=== PATIENT | male | born 1940 | race Caucasian/White ===

== ENCOUNTER → 2017-02-28 | Outpatient (CLI) | payer MEDICARE, BC ==
[~2017-02-28] MED LIST: ACET65TA; ALLO300T; ALTA10CA; DILT240C3; HYDR25TA6; K-TA10TA; MECL25TA2
--- NOTE | 2017-02-28 14:25 | REP ---
Right hand four views: There are no comparison studies. There is joint space narrowing compatible with mild osteoarthritis of the PIP articulations. There is joint space narrowing and cortical irregularity compatible with moderate osteoarthritis of the DIP articulations. The MCP articulations are unremarkable. The carpal ossicle articulations are unremarkable. Mineralization is normal. There are no unusual calcifications. There are no radiopaque foreign bodies. Impression: PIP and DIP osteoarthritis. Signed by César Bueno MD 02/28/2017 02:16 P
== END ==
LOC: M ADAMS 13:34
PROVIDERS: ATTEND Physician Assistant Medical
DX: M79.641 Pain in right hand (principal)

== ENCOUNTER 2017-07-10 08:54 | Emergency (ER) | payer MEDICARE, BC ==
[~2017-07-10] VITALS: Ht 177.8 cm; Wt 111.4 kg
[2017-07-10 08:54] VITALS: BP 169/77
[2017-07-10] MEDS ORDERED: VESI5TAB2 (09:10)
[2017-07-10] MEDS ORDERED: POTA10TAB (09:10)
[2017-07-10] MEDS ORDERED: DILT240C (09:10)
[2017-07-10] MEDS ORDERED: RAMI10CA (09:10)
[2017-07-10] MEDS ORDERED: HYDR25TA6 (09:10)
[2017-07-10] MEDS ORDERED: ALLO15TA (09:10)
--- NOTE | 2017-07-10 10:26 | REP ---
LEFT KNEE, FIVE VIEWS: HISTORY: Trauma. There is no acute fracture or dislocation. There is narrowing of the joint spaces. Calcifications are present posterior to the proximal tibia and fibula. This represents ligamentous or tendon calcification. IMPRESSION: There is no acute fracture or dislocation. Signed by Cresencio Dodd MD 07/10/2017 10:31 A
--- NOTE | 2017-07-10 10:27 | REP ---
LEFT TIBIA/FIBULAR, FOUR VIEWS: HISTORY: Leg pain. There is no acute fracture or dislocation. There is narrowing of the joint space. Calcifications are present posterior to the proximal tibia and fibula. This represents ligamentous or tendon calcification. IMPRESSION: There is no acute fracture or dislocation. Signed by Cresencio Dodd MD 07/10/2017 10:31 A
== END 2017-07-10 10:43 | disposition home or self-care (01) ==
LOC: M ED 08:54
DX: S83.92XA Sprain of unspecified site of left knee, initial encounter (principal); X50.1XXA Overexertion from prolonged static or awkward postures, initial encounter; Y92.39 Other specified sports and athletic area as the place of occurrence of the external cause; Y93.A1 Activity, exercise machines primarily for cardiorespiratory conditioning; Y99.9 Unspecified external cause status; I10 Essential (primary) hypertension; Z87.442 Personal history of urinary calculi; M10.9 Gout, unspecified; Z85.820 Personal history of malignant melanoma of skin; Z79.899 Other long term (current) drug therapy; Z88.5 Allergy status to narcotic agent

== ENCOUNTER → 2017-07-25 | Outpatient (REF) | payer MEDICARE, BC ==
[~2017-07-25] MED LIST changes: +ALLO15TA; +DILT240C; +POTA10TAB; +RAMI10CA; +VESI5TAB2
[2017-07-25 13:43] LABS: PHOSPHORUS LEVEL 2.9 MG/DL (2.5-4.9); URIC ACID 4.4 MG/DL (3.5-7.2)
== END ==
LOC: M LAB REF 12:30
PROVIDERS: ATTEND Internal Medicine
DX: M10.9 Gout, unspecified (principal); N20.0 Calculus of kidney; Q61.2 Polycystic kidney, adult type

== ENCOUNTER → 2017-09-28 | Outpatient (CLI) | payer MEDICARE, BC ==
[2017-09-30 14:10] LABS: PSA % FREE 31.9 % (.); PSA FREE 1.85 ng/mL; PSA TOTAL 5.8 ng/mL (0.0-4.0)
== END ==
LOC: M SMT 14:37
PROVIDERS: ATTEND Urology
DX: R97.20 Elevated prostate specific antigen [PSA] (principal)
CPT/HCPCS: 36415; 84154; G0463

== ENCOUNTER → 2018-02-27 | Outpatient (REF) | payer MEDICARE, BC ==
[2018-02-27 12:41] LABS: PTH INTACT 36.7 PG/ML (18.5-88.0)
== END ==
LOC: M LAB REF 11:43
DX: N25.81 Secondary hyperparathyroidism of renal origin (principal)
CPT/HCPCS: 83970

== ENCOUNTER → 2018-05-31 | Outpatient (REF) | payer MEDICARE, BC ==
[2018-06-02 00:06] LABS: PSA % FREE 24.7 % (.); PSA FREE 1.36 ng/mL; PSA TOTAL 5.5 ng/mL (0.0-4.0)
== END ==
LOC: M LABDRWAD 12:36
DX: R97.20 Elevated prostate specific antigen [PSA] (principal)
CPT/HCPCS: 84154

== ENCOUNTER → 2019-07-09 | Outpatient (REF) | payer MEDICARE, BC ==
[~2019-07-09] MED LIST changes: -ALLO15TA; +ALLO300T2; +ASPI81TAEC PO; +BACITAB PO; +CARD180C4 PO; +CIPR-249 PO; -DILT240C; +DILT240C47; +DILT240C47 PO; +FLOM0.4C39 PO; +HYDR25TAB PO; +MAGN400T5 PO; +POTA10808; +POTA10808 PO; -POTA10TAB; -RAMI10CA; +RAMI1CAP26; +RAMI1CAP26 PO; +VESI5TAB2 PO; +VITAMIN PACK PO; +ZYLO300T6 PO
[2019-07-09 14:17] LABS: FOLATE 23.2 NG/ML
== END ==
LOC: M LAB REF 12:50
PROVIDERS: ATTEND Nurse Practitioner Family
DX: D64.9 Anemia, unspecified (principal)

== ENCOUNTER → 2020-10-27 | Outpatient (REF) | payer MEDICARE, BC ==
[2020-10-27 18:32] LABS: APPEARANCE, URINE MANUAL CLOUDY (CLEAR); COLOR, URINE MANUAL RED (YELLOW)
[2020-10-27 18:33] LABS: BILIRUBIN, URINE MANUAL NEGATIVE (NEGATIVE); GLUCOSE, URINE (UA) MANUAL NEGATIVE (NEGATIVE); KETONE, URINE MANUAL NEGATIVE (NEGATIVE); NITRITE, URINE MANUAL NEGATIVE (NEGATIVE); PROTEIN, URINE MANUAL OBSCURED mg/dL (NEGATIVE); SPECIFIC GRAVITY,URINE MANUAL 1.015 (1.002-1.035); UROBILINOGEN, URINE MANUAL NORMAL (NORMAL)
[2020-10-27 18:34] LABS: BLOOD URINE MANUAL POSITIVE (NEGATIVE); LEUKOCYTE ESTERASE, URINE MAN POSITIVE (NEGATIVE)
[2020-10-27 18:38] LABS: BACTERIA, URINE SMALL AMOUNT; HYALINE CAST, URINE NONE SEEN /lpf (0-1); RBC, URINE TNTC /hpf (0-3); SQUAMOUS EPITHELIAL CELL URINE NONE SEEN /hpf (SMALL AMT); WBC, URINE TNTC /hpf (0-3)
== END ==
LOC: M SMT 17:09
PROVIDERS: ATTEND Urology
DX: N39.0 Urinary tract infection, site not specified (principal)

== ENCOUNTER → 2020-11-04 | Outpatient (REF) | payer MEDICARE, BC | LOC: M SMT 16:46 | PROVIDERS: ATTEND Urology | DX: R31.21 Asymptomatic microscopic hematuria (principal) ==

== ENCOUNTER 2020-11-10 15:59 | Emergency (ER) | payer MEDICARE, BC ==
[~2020-11-10] VITALS: Ht 177.8 cm; Wt 104.6 kg
[~2020-11-10 15:59] MED LIST changes: +HYDR-3490 PO; -HYDR25TAB PO
[2020-11-10] MEDS ORDERED: FLUC150T PO (16:15)
[2020-11-10] MEDS ORDERED: NITR100C2 PO (16:15)
[2020-11-10] MEDS ORDERED: ATOR1TAB21 PO (16:15)
[2020-11-10] MEDS ORDERED: NS 1,000 ML IV ONE (16:45)
--- NOTE | 2020-11-10 16:54 | REP ---
INDICATION: weakness. COMPARISON: Comparison chest x-ray April 12, 2018. TECHNIQUE: Two views.. FINDINGS: The lungs are well inflated and free of infiltrate. The pleural angles are sharp. The heart size is normal. Pulmonary vasculature is not increased. No significant bony abnormality is seen. The aorta is tortuous. There are degenerative changes in the thoracic spine. IMPRESSION: No active disease.. <Electronically signed by Jose Rivas > 11/10/20 1605
[2020-11-10 17:58] LABS: BASO % 0.3 % (0.0-1.0); EOS # 0.9 10^3/uL (0.0-0.5); HEMATOCRIT 39.6 % (42.0-52.0); HEMOGLOBIN 12.8 g/dl (13.5-17.5); LYMPH # 1.6 10^3/uL (1.5-5.0); LYMPH % 14.8 % (24.0-44.0); MEAN CORPUSCULAR HEMOGLOBIN 31.8 pg (27.0-33.0); MEAN CORPUSCULAR HGB CONC 32.3 g/dl (32.0-36.5); MEAN CORPUSCULAR VOLUME 98.5 fl (80.0-96.0); MONO # 0.9 10^3/uL (0.0-0.8); MONO % 8.4 % (0.0-5.0); NEUTROPHILS # 7.5 10^3/uL (1.5-8.5); NEUTROPHILS % 68.1 % (36.0-66.0); PLATELET COUNT, AUTOMATED 207 10^3/uL (150-450); RED BLOOD COUNT 4.02 10^6/uL (4.30-6.10); WHITE BLOOD COUNT 10.9 10^3/uL (4.0-10.0)
[2020-11-10 18:37] LABS: ALBUMIN 2.9 GM/DL (3.2-5.2); ALT/SGPT 35 U/L (12-78); BILIRUBIN,DIRECT 0.2 MG/DL (0.0-0.2); BILIRUBIN,TOTAL 0.6 MG/DL (0.2-1.0); BLOOD UREA NITROGEN 59 MG/DL (7-18); CALCIUM LEVEL 8.2 MG/DL (8.8-10.2); CARBON DIOXIDE LEVEL 24 MEQ/L (21-32); CHLORIDE LEVEL 104 MEQ/L (98-107); CK-MB VALUE MASS 3.3 NG/ML (<3.6); CPK CREATINE PHOSPHOKINASE 125 U/L (39-308); GLOMERULAR FILTRATION RATE 29.1 (>35); GLUCOSE, FASTING 100 MG/DL (70-100); LIPASE 187 U/L (73-393); MB/CK RELATIVE INDEX 2.64 (< OR =4); POTASSIUM SERUM 4.5 MEQ/L (3.5-5.1); SODIUM LEVEL 138 MEQ/L (136-145); TOTAL PROTEIN 6.3 GM/DL (6.4-8.2); TROPONIN I < 0.02 NG/ML (< 0.10)
--- NOTE | 2020-11-10 19:41 | REPVR ---
PROCEDURE INFORMATION: Exam: CT Abdomen And Pelvis Without Contrast Exam date and time: 11/10/2020 6:59 PM Age: 80 years old Clinical indication: Abdominal pain; Localized; Left; Additional info: Left sided abd pain, weakness, urinary incontinence TECHNIQUE: Imaging protocol: Computed tomography of the abdomen and pelvis without contrast. Radiation optimization: All CT scans at this facility use at least one of these dose optimization techniques: automated exposure control; mA and/or kV adjustment per patient size (includes targeted exams where dose is matched to clinical indication); or iterative reconstruction. COMPARISON: CT ABD/PEL W/IV CONTRAST ONLY 04/15/2018 9:33 AM FINDINGS: Mediastinal space: A small sliding hiatal hernia is present. Liver: Normal. No mass. Gallbladder and bile ducts: The gallbladder is incompletely distended. This is most likely related to incomplete fasting. Clinical correlation to exclude gallbladder pathology suggested. Pancreas: There is diffuse pancreatic atrophy. Spleen: Normal. No splenomegaly. Adrenal glands: Normal. No mass. Kidneys and ureters: Multiple bilateral renal cysts measuring up to 1.6 x 9 x 13.5 cm and 14 x 16 x 15 cm on the left both containing eggshell type calcification. Findings are stable. Stomach and bowel: Moderate diverticulosis is present in the distal colon. No diverticulitis. Appendix: No evidence of appendicitis. Intraperitoneal space: Unremarkable. No free air. No significant fluid collection. Vasculature: The aortoiliac vessels demonstrate moderate atherosclerotic calcification. Moderate atherosclerotic narrowing at the origin of the superior mesenteric artery. Lymph nodes: Unremarkable. No enlarged lymph nodes. Urinary bladder: There is thickening of the bladder wall with perivesicular inflammatory changes consistent with acute cystitis. Bilateral hydroureteronephrosis without obstructing etiology traced to the level of the bladder likely related to chronic bladder outlet obstruction. Reproductive: The prostate gland demonstrates moderate hyperplasia. Bones/joints: Dextroscoliosis. The spine demonstrates moderate degenerative changes. Severe central spinal stenosis L2-L3. Status post laminectomy at L3-L4. Severe central spinal stenosis L4-L5. Soft tissues: Unremarkable. IMPRESSION: 1. The gallbladder is incompletely distended. This is most likely related to incomplete fasting. Clinical correlation to exclude gallbladder pathology suggested. 2. A small sliding hiatal hernia is present. 3. There is diffuse pancreatic atrophy. 4. Multiple bilateral renal cysts measuring up to 1.6 x 9 x 13.5 cm and 14 x 16 x 15 cm on the left both containing eggshell type calcification. Findings are stable. 5. Moderate prostatic hyperplasia. 6. There is thickening of the bladder wall with perivesicular inflammatory changes consistent with acute cystitis. 7. Bilateral hydroureteronephrosis without obstructing etiology traced to the level of the bladder likely related to chronic bladder outlet obstruction. 8. Moderate diverticulosis is present in the distal colon. No diverticulitis. 9. Moderate atherosclerotic narrowing at the origin of the superior mesenteric artery. COMMENTS: Consistent with the [employer]'s Incidental Findings Committee white paper (J Am Zafar Radiol 2018): Any incidental renal lesion less than 1 cm or classified as too small to characterize, or any incidental cystic renal lesion characterized as simple-appearing, is likely benign. No follow-up imaging is recommended for these lesions per consensus recommendations based on imaging criteria. Electronically signed by: Rui Lazaro On 11/10/2020 19:41:53 PM
[2020-11-10] MEDS ORDERED: CIPROFLOXACIN 500MG TABLET PO ONE (20:45)
[2020-11-10] MEDS ORDERED: CIPR-249 PO (21:06)
[2020-11-10 21:16] VITALS: BP 134/67
--- NOTE | 2020-11-10 21:26 | SMCUROLCON ---
Urology Consultation General Date of Consultation 11/10/20 Reason For Consultation This patient is seen for Urinary Problem. History of Present Illness The patient is an 80-year-old male with a past medical history for urinary urgency and frequency. Teo's in the clinic earlier today with a complaint of nocturia times 1012 and daytime frequency every hour. He states that even though he feels a strong urge to void he can only voided a very small amount. Bladder scan showed only 22 mL residual volume. Because of his irritative voiding symptoms, there was concern for his prostate health. Unfortunately, he had left the clinic before digital rectal could be performed and he presented to the emergency room for a more complete and more rapid workup with CT scan for better pelvic evaluation. Past Medical History Medical History Hypertension Polycystic kidney disease Kidney stones Elevated PSA Hematuria BPH with obstruction Bilateral hydronephrosis Surgical Hstory Cystoscopy Appendectomy Tonsillectomy Back surgery Melanoma removed left arm Family History Family History Brother of cancer at age 42 unknown type mother of unknown causes at a young age father of heart attack at 74 Social History Social History Patient is , retired and lives with his . He does not smoke or abuse alcohol smoke or use alcohol Allergies Allergies: Coded Allergies: codeine (Verified Adverse Reaction, Intermediate, altered , 11/10/20) Review of Systems General: Reports: Fatigue Constitutional: Reports: Malaise Eyes: Denies: Pain, Vision change ENT: Denies: Head Aches, Sore Throat, Epistaxis Skin: Denies: Rash, Lesions, Breakdown, Nail Changes Pulmonary: Denies: Dyspnea, Cough Cardiovascular: Denies Chest Pain, Denies Palpitations Gastrointestinal: Denies: Nausea, Vomiting, Abdominal Pain Genitourinary: Reports: Frequency, Other Symptoms (urgency, nocturia 10 or 12 times a night and occasional dysuria) Musculoskeletal: Denies: Neck Pain, Back Pain Neurological: Denies: Weakness, Numbness, Incoordination, Change in Speech Psych: Reports: Mood Normal; Denies: Anxiety, Depression Physical Examination General Exam: Alert, Cooperative, No Acute Distress EYE EXAM: PERRLA, Conjunctiva & lids normal, EOMI; No: Sclera icteric ENT EXAM: Atraumatic, Mucous membr. moist/pink, Pharynx Normal Neck Exam: Supple; No: JVD, thyromegaly Abdomen Exam: Normal Bowel Sounds, Soft; No: Tenderness, Hepatospenomegaly Male Exam Penis, scrotum, testicles and epididymides are normal. Rectal exam shows good sphincter tone. Prostate is 40 g in size with the right side being slightly larger than the left and also firmer than the left but not hard. Vital Signs/I&O Vital Signs Date Time Temp Pulse Resp B/P (MAP) Pulse Ox O2 Delivery O2 Flow Rate FiO2 11/10/20 20:36 98.3 74 18 131/60 (83) 97 Room Air Laboratory Data 24H Labs Laboratory Tests 2 11/10/20 17:40: Immature Granulocyte % (Auto) 0.4, Neutrophils (%) (Auto) 68.1H, Lymphocytes (%) (Auto) 14.8L, Monocytes (%) (Auto) 8.4H, Eosinophils (%) (Auto) 8.0H, Basophils (%) (Auto) 0.3, Neutrophils # (Auto) 7.5, Lymphocytes # (Auto) 1.6, Monocytes # (Auto) 0.9H, Eosinophils # (Auto) 0.9H, Basophils # (Auto) 0.0, Nucleated Red Blood Cells % (auto) 0.0, Anion Gap 10, Glomerular Filtration Rate 29.1L, Calcium Level 8.2L, Total Bilirubin 0.6, Direct Bilirubin 0.2, Aspartate Amino Transf (AST/SGOT) 27, Alanine Aminotransferase (ALT/SGPT) 35, Alkaline Phosphatase 93, Total Creatine Kinase 125, Creatine Kinase MB 3.3, Creatine Elaine se MB Relative Index 2.64, Troponin I < 0.02, Total Protein 6.3L, Albumin 2.9L, Albumin/Globulin Ratio 0.9, Lipase 187, Prostate Specific Antigen Screen 10.50H CBC/BMP Laboratory Tests 11/10/20 17:40 Assessment Urinary frequency, urgency, urge incontinence, nocturia and occasional hematuria, elevated PSA and a right-sided prostate induration. These could be caused by acute prostatitis or prostate cancer. His PSA is elevated from 5 just 2 years ago to 10 now and will need to be monitored with a repeat PSA after antibiotics. Plan Urinary frequency, urgency, urge incontinence, elevated PSA and right-sided asymmetry with firmness. Because of the above symptoms and irritative voiding pattern, prostate cancer and acute prostatitis need to be in the differential diagnosis. Although his prostate is enlarged, he has a fairly good stream when he voids but he is just voiding frequently. He does empty his bladder completely. His PSA was about 5 just 2 years ago and is now over 10. I therefore recommended Cipro 500 mg twice a day with a repeat PSA in 3 weeks. If his PSA has not improved significantly, he will need a prostate ultrasound and biopsy to be performed. This can be done through the clinic and the patient will be seen back in the clinic and about 3 weeks. I discussed with the patient the possibility and concerns for prostate cancer and the very possible need for a prostate ultrasound biopsy in the near future if antibiotics do not completely improve his symptoms. He will be set up for an office visit in 3 weeks and repeat PSA and I will place him on Cipro 500 mg twice a day for the next 30 days. Time Spent on Consult: Time Spent / Consult (Minutes): 50 PARAMJIT KIRK MD Nov 10, 2020 21:11
--- NOTE | 2020-11-12 06:59 | ED PDOC ---
Post-Departure Follow-Up radiology report faxed to Germaine Mandujano MD Nov 12, 2020 06:59
--- NOTE | 2020-11-12 13:05 | ECGEPIP ---
[facility] - ED Test Date: 2020-11-10 Pat Name: JALEN JAVIER Department: Room: - Gender: Male Obstetrics/Gynecology Nurse: OLIVER : 1940 Requested By: MONIQUE Benson PA-C Order Number: [id number] Reading MD: Germaine Jernigan Measurements Intervals [place] Rate: 80 P: 64 ND: 209 QRS: 29 QRSD: 102 T: 38 QT: 365 QTc: 422 Interpretive Statements SINUS RHYTHM WITH OCCASIONAL SUPRAVENTRICULAR PREMATURE COMPLEXES LOW VOLTAGE LMB DELAYED R PROGRESSION NO PRIOR Electronically Signed on 11-12-2020 13:05:11 EST by Germaine Jernigan
== END 2020-11-10 21:48 | disposition home or self-care (01) ==
LOC: M ED 15:59
DX: N41.0 Acute prostatitis (principal); N39.0 Urinary tract infection, site not specified; N28.1 Cyst of kidney, acquired; N13.2 Hydronephrosis with renal and ureteral calculous obstruction; K57.30 Diverticulosis of large intestine without perforation or abscess without bleeding; K44.9 Diaphragmatic hernia without obstruction or gangrene; I10 Essential (primary) hypertension; E78.5 Hyperlipidemia, unspecified; N18.9 Chronic kidney disease, unspecified; Z87.891 Personal history of nicotine dependence
CPT/HCPCS: 51798; 71046; 74176; 80048; 80076; 82550; 82553; 83690; 84484; 85025; 93005; 96360; 99284; G0103; G0463

== ENCOUNTER → 2020-12-03 | Outpatient (REF) | payer MEDICARE, BC ==
[~2020-12-03] MED LIST changes: +ATOR1TAB21 PO; +FLUC150T PO; +NITR100C2 PO
[2020-12-04 23:08] LABS: PSA % FREE 24.9 % (.); PSA FREE 1.79 ng/mL; PSA TOTAL 7.2 ng/mL (0.0-4.0)
== END ==
LOC: M SFHCADAM 10:49
PROVIDERS: ATTEND Urology
DX: R97.20 Elevated prostate specific antigen [PSA] (principal)

== ENCOUNTER → 2020-12-29 | Outpatient (CLI) | payer MEDICARE, BC ==
[~2020-12-29] MED LIST changes: +ACET1TAB55 PO; +ASPI-569 PO; -ASPI81TAEC PO; +CARV6.25 PO; +CEFT1INJ4 IV; +DILT240C83 PO; +FLUC100T PO; +GABA-1171 PO; +HEPA500023 SC; +LEXA1TAB PO; +MYRB50TA PO; +NYST10006 TOP; +POTA4.25 PO; +RISATAB3 PO
--- NOTE | 2020-12-29 13:01 | REPPI ---
INDICATION: ELEVATED PSA. COMPARISON: None. TECHNIQUE: Sonographic images from guidance provided for Dr. Yanez of the urology division for transrectal prostate biopsy. FINDINGS: The prostate gland measures 5.5 x 5.2 x 3.3 cm giving calculated prostate volume of 49.8 mL. This is enlarged echogenicity is heterogeneous the prostate with small cysts and calcifications. There is a left-sided peripheral mass 1.5 x 1.3 x 1.7 cm. This is solid. Seminal vesicles appear symmetric and unremarkable. The transrectal ultrasound prostate biopsy under ultrasound guidance performed by Dr. Yanez after appropriate local anesthetic in with 13 biopsy passes recorded by the technologist in her note. IMPRESSION: 1. Status post transrectal ultrasound-guided prostate biopsy. Pathology pending. <Electronically signed by Elian Copeland > 12/29/20 [id number]
== END ==
LOC: M SMT PRO 10:23
PROVIDERS: ATTEND Urology
DX: C61 Malignant neoplasm of prostate (principal)
CPT/HCPCS: 55700; 76872; 76942; G0416

== ENCOUNTER 2021-01-25 13:26 | Inpatient (IN) | payer MEDICARE, BC ==
[~2021-01-25] VITALS: Ht 177.8 cm; Wt 94.3 kg
[~2021-01-25 13:26] MED LIST changes: -ACET1TAB55 PO; -CARV6.25 PO; -CEFT1INJ4 IV; -DILT240C83 PO; -FLUC100T PO; -GABA-1171 PO; -HEPA500023 SC; -LEXA1TAB PO; -MYRB50TA PO; -NYST10006 TOP; -POTA4.25 PO; -RISATAB3 PO
[2021-01-25] MEDS ORDERED: HYDR-3490 PO (13:53)
[2021-01-25] MEDS ORDERED: CARV6.25 PO (13:53)
--- NOTE | 2021-01-25 14:23 | REP ---
INDICATION: Syncope. COMPARISON: May 30, 2010.. TECHNIQUE: Helical scanning is acquired. 5 mm axial images were reformatted. Coronal MPR images were generated. FINDINGS: Bone window settings demonstrate an intact bony calvarium. There is no evidence of skull fracture or incidental bony calvarial lesion. The visualized paranasal sinuses appear clear. No intraorbital abnormality is seen. On soft tissue window setting images; the lateral, third, and fourth ventricles are normal in size and position. Smith-white differentiation pattern is normal above and below the tentorium. There are is no evidence of intracranial hemorrhage. No mass, edema, infarction, or midline shift is seen. No extra-axial fluid collection is appreciated. There is moderate generalized volume loss again noted. This is slightly more pronounced than on the comparison study. Vascular calcification is also noted. The patient's head is rotated slightly in the gantry for today's study. IMPRESSION: No acute intracranial abnormality. Generalized volume loss and vascular calcification noted.. <Electronically signed by Jose Rivas > 01/25/21 0191
[2021-01-25] MEDS ORDERED: NS 500 ML IV ONE (14:35)
[2021-01-25 14:43] LABS: BASO % 0.1 % (0.0-1.0); EOS # 0.2 10^3/uL (0.0-0.5); EOS % 1.1 % (0.0-3.0); HEMATOCRIT 35.3 % (42.0-52.0); HEMOGLOBIN 11.6 g/dl (13.5-17.5); LYMPH % 7.4 % (24.0-44.0); MEAN CORPUSCULAR HEMOGLOBIN 31.9 pg (27.0-33.0); MEAN CORPUSCULAR HGB CONC 32.9 g/dl (32.0-36.5); MONO % 7.3 % (2.0-8.0); NEUTROPHILS # 11.6 10^3/uL (1.5-8.5); NEUTROPHILS % 83.6 % (36.0-66.0); PLATELET COUNT, AUTOMATED 264 10^3/uL (150-450); RED BLOOD COUNT 3.64 10^6/uL (4.30-6.10); WHITE BLOOD COUNT 13.9 10^3/uL (4.0-10.0)
--- NOTE | 2021-01-25 14:49 | REP ---
INDICATION: Syncope/near-syncope. COMPARISON: Comparison chest x-ray 11/10/2020. TECHNIQUE: Portable upright AP chest radiograph. FINDINGS: The lungs are well inflated and free of infiltrate. Pleural angles are sharp. Heart size is normal. Pulmonary vasculature is not increased. There are degenerative changes in the right shoulder. The thoracic aorta is slightly tortuous. Monitoring electrodes are visible. IMPRESSION: No active disease. <Electronically signed by Jose Rivas > 01/25/21 1438
[2021-01-25 14:51] LABS: INR 1.11; PROTHROMBIN TIME 14.6 SECONDS (12.5-14.3)
[2021-01-25 14:52] LABS: PARTIAL THROMBOPLASTIN TIME 35.7 SECONDS (24.2-38.5)
[2021-01-25] MEDS ORDERED: NS 2,620 ML in IV 1 EA IV ONE (15:15)
[2021-01-25 15:19] LABS: BLOOD UREA NITROGEN 112 MG/DL (7-18); CALCIUM LEVEL 8.8 MG/DL (8.8-10.2); CARBON DIOXIDE LEVEL 24 MEQ/L (21-32); CHLORIDE LEVEL 106 MEQ/L (98-107); CK-MB VALUE MASS 3.4 NG/ML (<3.6); CPK CREATINE PHOSPHOKINASE 44 U/L (39-308); CREATININE FOR GFR 3.75 MG/DL (0.70-1.30); GLOMERULAR FILTRATION RATE 16.6 (>35); GLUCOSE, FASTING 109 MG/DL (70-100); MB/CK RELATIVE INDEX 7.73 (< OR =4); POTASSIUM SERUM 4.9 MEQ/L (3.5-5.1); SODIUM LEVEL 138 MEQ/L (136-145); TROPONIN I < 0.02 NG/ML (< 0.10)
[2021-01-25] MEDS ORDERED: cefTRIAXone SOD 2 GM in D5W MINI-BAG PLUS 50 ML IV ONE (16:25)
[2021-01-25] MEDS ORDERED: DILT240C83 PO (17:23)
[2021-01-25] MEDS ORDERED: MYRB50TA PO (17:23)
[2021-01-25] MEDS ORDERED: POTA4.25 PO (17:23)
[2021-01-25] MEDS ORDERED: MOM 30ML SUSPENSION UDC PO PRN (17:35)
--- NOTE | 2021-01-25 17:49 | HPEPDOC ---
[facility] Medical History & Physical Date of Admission Jan 25, 2021 Date of Service: Jan 25, 2021 History and Physical Chief complaint: Who presented to the emergency room after he had fallen History of present illness: Patient is an 80-year-old male who has reported that earlier this morning he fell while trying to ambulate to the bathroom. Patient reported that his legs had developed anything. He denied any head trauma, loss of consciousness, dizziness, lightheadedness or chest pain, reported that his legs felt heavy. Upon arrival to emergency room, patient has denied any shortness of breath, cough, nausea, vomiting, abdominal pain consultation, diarrhea. Does report discomfort with urination. Has been an ongoing problem for him since 08/2020. Patient has reported that hes been on and off several antibiotics that have been started by urology. Patient denies any fevers but does report chills. He reports a poor appetite and decreased weight of approximately 30 pounds since August. While in the emergency room, patient has a lab work that has shown an elevated white cell count, lactic acidosis and a UA that was consistent with infection. Past Medical History: HTN DLP CKD / Polycystic kidney disease Gout BPH Prostate Cancer; elevated PSA; has not started therapy at this time Hx of Nephrolithiasis Past Surgical History: Tonsillectomy Appendectomy Back surgery Left arm melanoma resection 1994 Allergies: See below Medications: See below Family History: - Father with a history of heart attack at the age of 74, brother with a history of cancer age 42 Social History: - Denies the use of alcohol or illicit drugs; patient quit smoking 20 years ago but was a smoker of 20 years at one pack per day/ - Denies recent travel or sick contacts - Lives with - 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; 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 [employer] Review of Systems: 10 point review of systems complete, all negative otherwise stated in HPI Physical exam: - Vitals: BP [119/56], HR [70], RR [22], Sat [96%RA], Temp [97.7F] - General: Lying in bed, No acute distress, Speaking in full sentences, AAOx3 - HEENT: NC, AT, PERRLA - CVS: RRR, +S1S2 - Lungs: Fair air entry bilaterally, No appreciable wheezing / rales / rhonchi - Abdomen: Soft, Non-distended, Non-tender, No CVA tenderness noted - Extremities: No lower extremity edema, No calf tenderness - Neuro: No focal motor or sensory deficit - Skin: No visible rashes Labs: See below Imaging: CT head 01/25: No acute intracranial abnormality. Generalized volume loss and vascular calcification noted.. CXR 01/25: No active disease. EKG: See below Assessment and Plan: Sepsis - likely 2/2 UTI - Presented to the emergency room with complaints of falling - Patient has reported discomfort with urination since 08/2020. Has been on and off several different antibiotics - Lab work consistent with leukocytosis with neutrophil predominance - Lactic acidosis - UA consistent with infection - Review of medical record has indicated that patient has a history of Escherichia coli UTI that have been pansensitive - Will check blood cultures, urine cultures and procalcitonin - Will check CT abdomen / pelvis - Will c/w IV fluid hydration and Ceftriaxone KEATON on CKD3 - Hx of Polycystic kidney disease - Baseline Cr of ~2.30 (Last lab from 10/2020) - UA noted - Will check urine electrolytes and CT scan abdomen - Will avoid nephrotoxic medications - Will have Siddiqi Cather placed - Will start IV fluid hydration Fall - likely 2/2 orthostatic hypotension - Patient was hypotensive on arrival; has responded to IV fluid hydration - PT and OT; fall precautions HTN - Will hold anti-hypertensive medicaitons for today - Will resume in 24 hours when BP has improved DLP - c/w Statin Gout - c/w BPH - c/w Tamsulosin Reported Prostate Cancer - Prior documentation has revealed elevated PSA - however not elevated readings on [employer] - Follows with Dr. Yanez; reports that he has not started therapy at this time, but is in the process Hx of Nephrolithiasis DVT prophylaxis - Will start Heparin Vital Signs Vital Signs Date Time Temp Pulse Resp B/P (MAP) Pulse Ox O2 Delivery O2 Flow Rate FiO2 01/25/21 17:43 74 20 96 Room Air 01/25/21 17:30 131/62 (85) 01/25/21 13:40 97.7 Laboratory Data Labs 24H Laboratory Tests 2 01/25/21 14:26: Immature Granulocyte % (Auto) 0.5, Neutrophils (%) (Auto) 83.6H, Lymphocytes (%) (Auto) 7.4L, Monocytes (%) (Auto) 7.3, Eosinophils (%) (Auto) 1.1, Basophils (%) (Auto) 0.1, Neutrophils # (Auto) 11.6H, Lymphocytes # (Auto) 1.0L, Monocytes # (Auto) 1.0H, Eosinophils # (Auto) 0.2, Basophils # (Auto) 0.0, Nucleated Red Blood Cells % (auto) 0.0, Prothrombin Time 14.6H, Prothromb Time International Ratio 1.11, Activated Partial Thromboplast Time 35.7, Anion Gap 8, Glomerular Filtration Rate 16.6L, Lactic Acid Level 3.4*H, Calcium Level 8.8, Total Creatin e Kinase 44, Creatine Kinase MB 3.4, Creatine Kinase MB Relative Index 7.73H, Troponin I < 0.02, Thyroid Stimulating Hormone (TSH) 3.450 01/25/21 14:29: Bedside Glucose (Misc Panel) 110 01/25/21 15:34: Urine Color YELLOW, Urine Appearance TURBIDH, Urine pH 6.0, Urine Specific [place] 1.010, Urine Protein 2+H, Urine Glucose (UA) NEGATIVE, Urine Ketones NEGATIVE, Urine Blood 2+H, Urine Nitrite NEGATIVE, Urine Bilirubin NEGATIVE, Urine Urobilinogen 0.2, Urine Leukocyte Esterase 3+H, Urine WBC (Auto) TNTCH, Urine RBC (Auto) 27H, Urine Hyaline Casts (Auto) 0, Urine Bacteria (Auto) 2+H, Urine Squamous Epithelial Cells 0, Urine Sperm (Auto) 01/25/21 15:55: CBC/BMP Laboratory Tests 01/25/21 14:26 Microbiology Microbiology 01/25/21 Blood Culture, Received Pending 01/25/21 Blood Culture, Received Pending 01/25/21 Urine Culture, Received Pending Home Medications Scheduled Allopurinol (Zyloprim) 300 Mg Tab, 300 MG PO DAILY Aspirin (Aspirin EC) 81 Mg Tabec, 81 MG PO DAILY Atorvastatin Calcium (Atorvastatin Calcium) 20 Mg Tablet, PO DAILY Carvedilol (Carvedilol) 6.25 Mg Tablet, 1 TAB PO BID Hydrochlorothiazide (Hydrochlorothiazide) 25 Mg Tablet, 1 TAB PO DAILY Mirabegron (Myrbetriq) 50 Mg Tab.er.24h, 50 MG PO DAILY Potassium Citrate (Potassium Citrate ER) 15 Meq Tablet.er, 15 MEQ PO BID Ramipril (Ramipril) 10 Mg Cap, 20 MG PO DAILY Tamsulosin HCl (Flomax) 0.4 Mg Cap, 0.4 MG PO DAILY dilTIAZem HCl (Diltiazem 24Hr Cd) 240 Mg Cap.er.24h, 90 MG PO DAILY Allergies Coded Allergies: codeine (Verified Adverse Reaction, Intermediate, altered , 11/10/20) SLAVA MCDONALD MD Jan 25, 2021 17:49
--- NOTE | 2021-01-25 17:59 | REP ---
INDICATION: KEATON/UTI. COMPARISON: Abdomen/pelvis CT dated 11/10/2020. TECHNIQUE: Multiple ultrasound images of the kidneys and bladder FINDINGS: The right kidney measures 13.8 x 7.3 x 8.4 cm. The left kidney measures 15.6 x 8.0 x 7.7 cm. The kidneys are normal size. There is increased renal cortical echogenicity bilaterally compatible with medical renal disease. There are numerous renal cysts bilaterally, similar to the comparison CT. Is difficult to differentiate hydronephrosis on the right and left from a peripelvic renal cysts on the right and the left by ultrasound. No renal calculi are identified. No solid renal masses are identified. Bladder: The bladder appears adequately distended. No bladder wall nodules, masses or cysts are identified. There are no Doppler ultrasound images to evaluate for ureteral jets. IMPRESSION: Multiple bilateral renal cysts. There is no cyst wall thickening, cyst wall nodularity, or septa identified. These all appear to be simple cysts. It is difficult to differentiate parapelvic cysts from hydronephrosis by ultrasound. There are no Doppler images of the bladder to evaluate for ureteral jets. The bladder is otherwise unremarkable. <Electronically signed by César Bueno > 01/25/21 [id number]
[2021-01-25 18:04] LABS: RSV AMPLIFICATION NEGATIVE (NEGATIVE)
--- NOTE | 2021-01-25 18:30 | REPVR ---
PROCEDURE INFORMATION: Exam: CT Abdomen And Pelvis Without Contrast Exam date and time: 01/25/2021 5:17 PM Age: 80 years old Clinical indication: Other: UTI / pyelonephritis? TECHNIQUE: Imaging protocol: Computed tomography of the abdomen and pelvis without contrast. Radiation optimization: All CT scans at this facility use at least one of these dose optimization techniques: automated exposure control; mA and/or kV adjustment per patient size (includes targeted exams where dose is matched to clinical indication); or iterative reconstruction. COMPARISON: CT ABD PELVIS W/O CONTRAST 11/10/2020 6:55 PM FINDINGS: Mediastinal space: A small sliding hiatal hernia is present. Liver: Benign-appearing 6 mm hypodensity in the posterior hepatic dome. Liver otherwise unremarkable. Gallbladder and bile ducts: Normal. No calcified stones. No ductal dilation. Pancreas: There is diffuse pancreatic atrophy. Spleen: Normal. No splenomegaly. Adrenal glands: There is bilateral adrenal hyperplasia. Kidneys and ureters: Multiple predominantly simple renal cysts including a dominant peripherally calcified 16 cm cyst in the left kidney. Moderate bilateral hydroureteronephrosis, which may be related to bladder outlet obstruction. Stomach and bowel: Moderate diverticulosis coli. Otherwise unremarkable. No obstruction. No mucosal thickening. Appendix: No evidence of appendicitis. Intraperitoneal space: Unremarkable. No free air. No significant fluid collection. Vasculature: The aortoiliac vessels demonstrate moderate atherosclerotic calcification. Lymph nodes: Unremarkable. No enlarged lymph nodes. Urinary bladder: There is thickening of the bladder wall with perivesicular inflammatory changes consistent with acute cystitis. Reproductive: The prostate gland demonstrates moderate hyperplasia. Bones/joints: Dextroscoliosis. The spine demonstrates moderate degenerative changes. Moderate to severe central spinal stenosis L2-L3, mild to moderate central spinal stenosis L3-L4 status post laminectomy, severe central spinal stenosis L4-L5. Diffusely bulging annulus L5-S1. Soft tissues: Unremarkable. Other findings: Osteoporosis. IMPRESSION: 1. A small sliding hiatal hernia is present. 2. Multiple predominantly simple renal cysts including a dominant peripherally calcified 16 cm cyst in the left kidney (Bosniak type 2). No further workup recommended. 3. There is diffuse pancreatic atrophy. 4. There is bilateral adrenal hyperplasia. 5. Moderate bilateral hydroureteronephrosis, which may be related to bladder outlet obstruction. 6. There is thickening of the bladder wall with perivesicular inflammatory changes consistent with acute cystitis. 7. Moderate prostatic hyperplasia. 8. Moderate diverticulosis coli. COMMENTS: Consistent with the [employer]'s Incidental Findings Committee white paper (J Am Zafar Radiol 2018): Any incidental renal lesion less than 1 cm or classified as too small to characterize, or any incidental cystic renal lesion characterized as simple-appearing, is likely benign. No follow-up imaging is recommended for these lesions per consensus recommendations based on imaging criteria. Electronically signed by: Rui Lazaro On 01/25/2021 18:30:02 PM
[2021-01-25] MEDS ORDERED: FLOM0.4C39 PO (18:40)
[2021-01-25] MEDS: NS 1,000 ML IV SCH ×2 (19:16→22:35)
[2021-01-25 20:20] VITALS: BP 141/67
[2021-01-25] MEDS: CARVedilol 6.25 MG TAB PO SCH (21:29)
[2021-01-25] MEDS: HEPARIN SOD (PORCINE) 5000UNITS/ML 1ML VIAL/SYRINGE SC SCH ×2 (21:29→21:30)
[2021-01-25] MEDS: DOCUSATE SODIUM 100MG CAPSULE PO SCH (21:29)
[2021-01-25] MEDS: ATORVASTATIN 20 MG TAB PO SCH (21:29)
--- NOTE | 2021-01-25 22:16 | ECGEPIP ---
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
[2021-01-25 23:13] LABS: CREATININE,RANDOM URINE 40.5 MG/DL
[2021-01-25] MEDS: ACETAMINOPHEN TAB 650MG DOSE (2X325MG) PO PRN (23:56)
[2021-01-26] VITALS: BP 134/73
[2021-01-26] MEDS: TAMSULOSIN 0.4 MG CAP PO SCH ×2 (01:42→08:37)
[2021-01-26 04:00] VITALS: BP 130/71
[2021-01-26 05:58] LABS: BASO % 0.1 % (0.0-1.0); EOS # 0.3 10^3/uL (0.0-0.5); EOS % 2.5 % (0.0-3.0); HEMATOCRIT 34.3 % (42.0-52.0); HEMOGLOBIN 11.1 g/dl (13.5-17.5); LYMPH # 1.1 10^3/uL (1.5-5.0); LYMPH % 8.7 % (24.0-44.0); MEAN CORPUSCULAR HEMOGLOBIN 31.7 pg (27.0-33.0); MEAN CORPUSCULAR HGB CONC 32.4 g/dl (32.0-36.5); MONO # 0.8 10^3/uL (0.0-0.8); MONO % 6.8 % (2.0-8.0); NEUTROPHILS # 9.9 10^3/uL (1.5-8.5); NEUTROPHILS % 81.5 % (36.0-66.0); PLATELET COUNT, AUTOMATED 242 10^3/uL (150-450); WHITE BLOOD COUNT 12.1 10^3/uL (4.0-10.0)
[2021-01-26] MEDS: HEPARIN SOD (PORCINE) 5000UNITS/ML 1ML VIAL/SYRINGE SC SCH ×3 (06:18→21:10)
[2021-01-26 06:23] LABS: BLOOD UREA NITROGEN 87 MG/DL (7-18); CALCIUM LEVEL 8.4 MG/DL (8.8-10.2); CARBON DIOXIDE LEVEL 22 MEQ/L (21-32); CHLORIDE LEVEL 110 MEQ/L (98-107); CREATININE FOR GFR 2.52 MG/DL (0.70-1.30); GLOMERULAR FILTRATION RATE 26.2 (>35); GLUCOSE, FASTING 104 MG/DL (70-100); MAGNESIUM LEVEL 2.1 MG/DL (1.8-2.4); POTASSIUM SERUM 4.8 MEQ/L (3.5-5.1); SODIUM LEVEL 141 MEQ/L (136-145)
[2021-01-26 07:35] VITALS: BP 125/65
[2021-01-26] MEDS: DOCUSATE SODIUM 100MG CAPSULE PO SCH ×2 (08:37→21:11)
[2021-01-26] MEDS: ASPIRIN 81MG ENTERIC TABLET PO SCH (08:38)
[2021-01-26] MEDS: CARVedilol 6.25 MG TAB PO SCH ×2 (08:38→21:11)
[2021-01-26] MEDS: allopurinoL 300 MG TAB PO SCH (08:38)
[2021-01-26] MEDS: ACETAMINOPHEN TAB 650MG DOSE (2X325MG) PO PRN (08:39)
--- NOTE | 2021-01-26 10:24 | IPNPDOC ---
Date Seen The patient was seen on 01/26/21. Progress Note SUBJECTIVE: 80 yo M with a hx of HTN, CKD/PKD, BPH, prostate Ca, nephrolithiasis, gout, DLP, fell while walking to abthroom at home, stating that his legs gave out. He further reported urinary discomfort, with concern for retention. He was admitted for sepsis 2/2 UTI as well as KEATON on CKD. Patient was seen and examined at bedside. Reports epigastric discomfort for the past several weeks, described as stabbing pain, with no relation to food, breathing or posture. He denies L sided chest pain or SOB, palpitations, n/v/d. Maria was placed this morning by Dr. Yanez. Patient reports discomfort around urethra, otherwise well tolerated. Maria draining opaque/hazy urine. Reports numbness and weakness in bilateral lower extremities. OBJECTIVE PHYSICAL EXAMINATION: VITAL SIGNS: please see below General: NAD, comfortable HEENT: PERRLA, EOMI, sclerae clear Neck: supple, normal ROM, no JVD Respiratory: lungs CTAB, no wheeze, no rales, no crackles CVS: RRR, normal S1, S2, no murmurs Abdo: soft, no masses, no hepatosplenomegaly, BS+, no rebound tenderness Extremities: no edema, pulses 2+ MSK: no joint deformities, normal ROM Neuro: moving all 4 extremities. Psych: calm, cooperative, AAO x 3] LABORATORY DATA, IMAGING STUDIES, MICROBIOLOGY: Please see below. CT abdo pelvis wo contrast (01/25/21): IMPRESSION: 1. A small sliding hiatal hernia is present. 2. Multiple predominantly simple renal cysts including a dominant peripherally calcified 16 cm cyst in the left kidney (Bosniak type 2). No further workup recommended. 3. There is diffuse pancreatic atrophy. 4. There is bilateral adrenal hyperplasia. 5. Moderate bilateral hydroureteronephrosis, which may be related to bladder outlet obstruction. 6. There is thickening of the bladder wall with perivesicular inflammatory changes consistent with acute cystitis. 7. Moderate prostatic hyperplasia. 8. Moderate diverticulosis coli. DVT prophylaxis ordered?: Heparin 5000 units q8h ASSESSMENT AND PLAN: Sepsis - likely 2/2 UTI - Presented to the emergency room with complaints of falling - Patient has reported discomfort with urination since 08/2020. Has been on and off several different antibiotics - Lab work consistent with leukocytosis with neutrophil predominance - Lactic acidosis resolved - UA consistent with infection - blood cultures, urine cultures are pending. - procal 0.11. WBC trending down, 13.9 to 12.1 - CT abdo pelvis reviewed as above. - c/w IV fluid hydration - c/w Ceftriaxone KEATON on CKD3/bilateral hydroureteronephrosis - Hx of Polycystic kidney disease - Cr trending down, closer to baseline of 2.3 (now 2.52) - Avoid nephrotoxins - maria inserted on 01/26/21 - CT abdo pelvis showing bilateral hydroureteronephrosis - d/w Dr. Yanez, likely related to bladder outlet obstruction 2/2 BPH/prostate ca, as long as Cr not increasing, can continue workup as outpatient, including repeat renal US. If Cr worsening, or patient develops flank pain, to obtain repeat renal US. - c/w IV hydration Fall - likely 2/2 orthostatic hypotension - Patient was hypotensive on arrival; has responded to IV fluid hydration - PT and OT continue their assessment - reports weakenss and parasthesia with numbness worsening since 11/2020 - CT abdo showed multilevel spinal stenosis, severe in L4/L5 - ordered MRI lumbar spine wo contrast, f/u. - fall precautions HTN - BP appropriate at this time - will resume HCTZ and ramipirl once KEATON resolves DLP - c/w Statin Gout - c/w BPH - c/w Tamsulosin Reported Prostate Cancer - Prior documentation has revealed elevated PSA - however not elevated readings on [employer] - Follows with Dr. Yanez; reports that he has not started therapy at this yg e, but is in the process - d/w Dr. Yanez, will f/u in clinic. Keep maria in place. Hx of Nephrolithiasis DVT prophylaxis -Heparin 5000 q8h VS, I&O, 24H, Fishbone Vital Signs/I&O Vital Signs Date Time Temp Pulse Resp B/P (MAP) Pulse Ox O2 Delivery O2 Flow Rate FiO2 01/26/21 08:38 72 125/65 01/26/21 07:35 97.8 18 96 Room Air I&O- Last 24 Hours up to 6 AM 01/26/21 06:00 Intake Total 1105 ml Output Total 1270 ml Balance -165 ml Laboratory Data 24H LABS Laboratory Tests 2 01/25/21 14:26: Immature Granulocyte % (Auto) 0.5, Neutrophils (%) (Auto) 83.6H, Lymphocytes (%) (Auto) 7.4L, Monocytes (%) (Auto) 7.3, Eosinophils (%) (Auto) 1.1, Basophils (%) (Auto) 0.1, Neutrophils # (Auto) 11.6H, Lymphocytes # (Auto) 1.0L, Monocytes # (Auto) 1.0H, Eosinophils # (Auto) 0.2, Basophils # (Auto) 0.0, Nucleated Red Blood Cells % (auto) 0.0, Prothrombin Time 14.6H, Prothromb Time International Ratio 1.11, Activated Partial Thromboplast Time 35.7, Anion Gap 8, Glomerular Filtration Rate 16.6L, Lactic Acid Level 3.4*H, Calcium Level 8.8, Total Creatine Kinase 44, Creatine Kinase MB 3.4, Creatine Kinase MB Relative Index 7.73H, Troponin I < 0.02, Thyroid Stimulating Hormone (TSH) 3.450 01/25/21 14:29: Bedside Glucose (Misc Panel) 110 01/25/21 15:34: Urine Color YELLOW, Urine Appearance TURBIDH, Urine pH 6.0, Urine Specific [place] 1.010, Urine Protein 2+H, Urine Glucose (UA) NEGATIVE, Urine Ketones NEGATIVE, Urine Blood 2+H, Urine Nitrite NEGATIVE, Urine Bilirubin NEGATIVE, Urine Urobilinogen 0.2, Urine Leukocyte Esterase 3+H, Urine WBC (Auto) TNTCH, Urine RBC (Auto) 27H, Urine Hyaline Casts (Auto) 0, Urine Bacteria (Auto) 2+H, Urine Squamous Epithelial Cells 0, Urine Sperm (Auto) 01/25/21 15:55: Coronavirus (COVID-19)(PCR) NEGATIVE, Influenza Type A (RT-PCR) NEGATIVE, Influenza Type B (RT-PCR) NEGATIVE, Respiratory Syncytial Virus (PCR) NEGATIVE 01/25/21 18:14: Osmolality 317H, Lactic Acid Followup at 4 Hours 1.3, Procalcitonin 0.11 01/25/21 22:30: Urine Osmolality 329, Urine Random Creatinine 40.5, Urine Random Sodium 72, Urine Random Urea Nitrogen 398 01/26/21 05:30: Immature Granulocyte % (Auto) 0.4, Neutrophils (%) (Auto) 81.5H, Lymphocytes (%) (Auto) 8.7L, Monocytes (%) (Auto) 6.8, Eosinophils (%) (Auto) 2.5, Basophils (%) (Auto) 0.1, Neutrophils # (Auto) 9.9H, Lymphocytes # (Auto) 1.1L, Monocytes # (Auto) 0.8, Eosinophils # (Auto) 0.3, Basophils # (Auto) 0.0, Nucleated Red Blood Cells % (auto) 0.0, Anion Gap 9, Glomerular Filtration Rate 26.2L, Calcium Level 8.4L, Magnesium Level 2.1 CBC/BMP Laboratory Tests 01/25/21 14:26 01/26/21 05:30 Microbiology Microbiology 01/25/21 Blood Culture, Received Pending 01/25/21 Blood Culture, Received Pending 01/25/21 Urine Culture, Received Pending FLY VELEZ MD Jan 26, 2021 10:24
--- NOTE | 2021-01-26 10:35 | SMCUROLCON ---
Urology Consultation General Date of Consultation 01/26/21 Reason For Consultation This patient is seen for Keaton/Pyelonephritis/Weakness. History of Present Illness This is an 80 y/o M w/ a PMH significant for cT1c Rajesh 3+4 prostate cancer, BPH w/ LUTS, HTN, and CKD, admitted to the hospital last night after sustaining a fall at home. It is suspected that sepsis due to a UTI is the cause. The patient notes that he has had constant dribbling of urination and dysuria for "a while". Of note, he was started on myrbetriq a few wks ago for presumed OAB, and the patient has not had any improvement in his symptoms. He is not certain if they got worse. He notes feeling chills for a few days and being unwell. A noncontrast CT A/P obtained on admission was notable for b/l hydroureteronephrosis down to the level of a distended and thick-walled bladder. No obstructing stones were seen. Several attempts have been made to place a catheter by nursing staff w/o success. The urology service has been consulted for assistance w/ placing a catheter. Past Medical History Medical History see HPI Surgical Hstory appendectomy, spinal stenosis surgery in 2007, b/l cataract surgery, ureteroscopy w/ laser lithotripsy Medications Current Medications Current Medications Medications (Trade) Dose Ordered Sig/Anthony Route PRN Reason Start Time Stop Time Status Last Admin Dose Admin Acetaminophen (Tylenol Tab) 650 mg Q4H PRN PO PAIN OR FEVER 01/25/21 17:35 01/26/21 08:39 Allopurinol (Zyloprim) 300 mg DAILY PO 01/26/21 09:00 01/26/21 08:38 Aspirin (Ecotrin) 81 mg DAILY PO 01/26/21 09:00 01/26/21 08:38 Atorvastatin Calcium (Lipitor) 20 mg QHS PO 01/25/21 21:00 01/25/21 21:29 Carvedilol (COReg) 6.25 mg BID PO 01/25/21 21:00 01/26/21 08:38 Ceftriaxone Sodium 1 gm/ Dextrose 50 ml @ 100 mls/hr Q24H IV 01/26/21 17:00 Diltiazem HCl (Cardizem Cd) 240 mg DAILY PO 01/26/21 09:00 01/26/21 08:38 Docusate Sodium (Colace) 100 mg BID PO 01/25/21 21:00 01/26/21 08:37 Heparin Sodium (Porcine) (Heparin) 5,000 units Q8H SC 01/25/21 22:00 01/26/21 06:18 Home Med (Med Rec Complete!) ASDIRECTED XX 01/25/21 18:40 01/25/21 18:43 DC Magnesium Hydroxide (Milk Of Magnesia) 30 ml DAILY PRN PO CONSTIPATION 01/25/21 17:35 Sodium Chloride 1,000 ml @ 125 mls/hr Q8H IV 01/25/21 14:35 01/26/21 03:29 DC 01/25/21 22:35 Tamsulosin HCl (Flomax) 0.4 mg DAILY PO 01/26/21 00:20 01/26/21 08:37 Allergies Allergies: Coded Allergies: codeine (Verified Adverse Reaction, Intermediate, altered , 11/10/20) Review of Systems Constitutional: Reports: Chills Pulmonary: Denies: Dyspnea Cardiovascular: Reports Chest Pain (noting mild chest pain at the time of evaluation) Gastrointestinal: Reports: Abdominal Pain (supraubic discomfort) Genitourinary: Reports: Dysuria, Other Symptoms (urinary dribbling) Psych: Reports: Mood Normal Physical Examination General Exam: Alert, Cooperative Chest Exam: Normal air movement Heart Exam: Rate Normal Abdomen Exam: Soft, Tenderness (mild suprapubic) Male Exam circumcised phallus w/o lesions; normal meatus Skin Exam: Nl turgor and temperature Neuro Exam: Normal Speech Psych Exam: Mental status NL, Mood NL Vital Signs/I&O Vital Signs Date Time Temp Pulse Resp B/P (MAP) Pulse Ox O2 Delivery O2 Flow Rate FiO2 01/26/21 08:38 72 125/65 01/26/21 07:35 97.8 18 96 Room Air I&O- Last 24 Hours up to 6 AM 01/26/21 06:00 Intake Total 1105 ml Output Total 1270 ml Balance -165 ml Laboratory Data 24H Labs Laboratory Tests 2 01/25/21 14:26: Immature Granulocyte % (Auto) 0.5, Neutrophils (%) (Auto) 83.6H, Lymphocytes (%) (Auto) 7.4L, Monocytes (%) (Auto) 7.3, Eosinophils (%) (Auto) 1.1, Basophils (%) (Auto) 0.1, Neutrophils # (Auto) 11.6H, Lymphocytes # (Auto) 1.0L, Monocytes # (Auto) 1.0H, Eosinophils # (Auto) 0.2, Basophils # (Auto) 0.0, Nucleated Red Blood Cells % (auto) 0.0, Prothrombin Time 14.6H, Prothromb Time International Ratio 1.11, Activated Partial Thromboplast Time 35.7, Anion Gap 8, Glomerular Filtration Rate 16.6L, Lactic Acid Level 3.4*H, Calcium Level 8.8, Total Creatine Kinase 44, Creatine Kinase MB 3.4, Creatine Kinase MB Relative Index 7.73H, Troponin I < 0.02, Thyroid Stimulating Hormone (TSH) 3.450 01/25/21 14:29: Bedside Glucose (Misc Panel) 110 01/25/21 15:34: Urine Color YELLOW, Urine Appearance TURBIDH, Urine pH 6.0, Urine Specific [place] 1.010, Urine Protein 2+H, Urine Glucose (UA) NEGATIVE, Urine Ketones NEGATIVE, Urine Blood 2+H, Urine Nitrite NEGATIVE, Urine Bilirubin NEGATIVE, Urine Urobilinogen 0.2, Urine Leukocyte Esterase 3+H, Urine WBC (Auto) TNTCH, Urine RBC (Auto) 27H, Urine Hyaline Casts (Auto) 0, Urine Bacteria (Auto) 2+H, Urine Squamous Epithelial Cells 0, Urine Sperm (Auto) 01/25/21 15:55: Coronavirus (COVID-19)(PCR) NEGATIVE, Influenza Type A (RT-PCR) NEGATIVE, Influenza Type B (RT-PCR) NEGATIVE, Respiratory Syncytial Virus (PCR) NEGATIVE 01/25/21 18:14: Osmolality 317H, Lactic Acid Followup at 4 Hours 1.3, Procalcitonin 0.11 01/25/21 22:30: Urine Osmolality 329, Urine Random Creatinine 40.5, Urine Random Sodium 72, Urine Random Urea Nitrogen 398 01/26/21 05:30: Immature Granulocyte % (Auto) 0.4, Neutrophils (%) (Auto) 81.5H, Lymphocytes (%) (Auto) 8.7L, Monocytes (%) (Auto) 6.8, Eosinophils (%) (Auto) 2.5, Basophils (%) (Auto) 0.1, Neutrophils # (Auto) 9.9H, Lymphocytes # (Auto) 1.1L, Monocytes # (Auto) 0.8, Eosinophils # (Auto) 0.3, Basophils # (Auto) 0.0, Nucleated Red Blood Cells % (auto) 0.0, Anion Gap 9, Glomerular Filtration Rate 26.2L, Calcium Level 8.4L, Magnesium Level 2.1 CBC/BMP Laboratory Tests 01/25/21 14:26 01/26/21 05:30 Microbiology Microbiology 01/25/21 Blood Culture, Received Pending 01/25/21 Blood Culture, Received Pending 01/25/21 Urine Culture, Received Pending Assessment This is an 80 y/o M w/ prostate cancer and BPH, admitted for likely sepsis 2/2 UTI and KEATON. Due to incomplete bladder emptying, I placed a 16Fr coude catheter under sterile conditions. This went in w/o resistance. The hydro seen on CT appears to be 2/2 bladder outlet obstruction as the hydro goes down to the level of the bladder. This should resolve w/ catheter placement. Plan - continue hold myrbetriq as this likely contributed to his urinary retention - continue flomax - keep catheter to gravity drainage - continue broad spectrum abx and adjust once culture results are back - would recommend getting a renal US in a few days if his Cr does not continue to trend towards his baseline s/p catheter placement - patient will ultimately need f/u in the urology clinic a week after discharge for catheter removal and voiding trial - my office will arrange this KATHERINE MA MD Jan 26, 2021 10:35
[2021-01-26] MEDS ORDERED: GI COCKTAIL 50ML BTL(HYOSCYAMINE/MAALOX/LIDOCAINE VISCOUS)(1:3:1) PO ONE (11:00)
[2021-01-26 11:10] VITALS: BP 109/62
[2021-01-26 12:02] LABS: TROPONIN I < 0.02 NG/ML (< 0.10)
[2021-01-26 15:00] VITALS: BP 128/60
[2021-01-26] MEDS: cefTRIAXone SOD 1 GM in D5W MINI-BAG PLUS 50 ML IV SCH (16:21)
--- NOTE | 2021-01-26 17:02 | ECGEPIP ---
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 Low voltages. Poor R wave progression. Pulmonary disease pattern Poor R wave progression. No significant change compared with 01/25/2021. Electronically Signed on 01-26-2021 17:02:37 EDT by Aurelio Pedersen
[2021-01-26 20:00] VITALS: BP 117/68
[2021-01-26] MEDS: ATORVASTATIN 20 MG TAB PO SCH (21:11)
[2021-01-27] VITALS: BP 112/57
--- NOTE | 2021-01-27 00:30 | REPVR ---
PROCEDURE INFORMATION: Exam: MR Lumbar Spine Without Contrast Exam date and time: 01/26/2021 11:31 PM Age: 80 years old Clinical indication: Low back pain; Additional info: R/O spinal stenosis, weakness, fall, parasthesias in le. TECHNIQUE: Imaging protocol: Multiplanar magnetic resonance images of the lumbar spine without intravenous contrast. COMPARISON: CT ABD PELVIS W/O CONTRAST 01/25/2021 5:53:40 PM FINDINGS: Vertebrae: The lumbar vertebral bodies are normal in height, without abnormal subluxation. Mild dextroscoliosis of the lumbar spine. Spinal cord: The distal end of the conus medullaris ends at T12-L1, normal in position. Multilevel findings: Degenerative disc disease is noted diffusely within the lumbar spine the, with a decrease in the T2 signal intensity of the discs as well as disc bulge/osteophyte complexes. There is heterogeneous signal intensity of the L2-L3 and L3-L4 discs. Modic endplate changes are identified from L2-L3 through L4-L5, with a decrease in disc height at L2-L3 and L3-L4. L1-L2: No significant spinal canal stenosis. Mild bilateral neural foraminal narrowing. L2-L3: Bilateral facet arthropathy with hypertrophy of the ligamentum flavum. A posterior disc bulge/osteophyte complex is identified, with minimal spinal canal stenosis. There is narrowing of both lateral recesses. Moderate to severe left and [id number] right neural foraminal narrowing identified. L3-L4: Bilateral laminectomy defects. A broad-based disc bulge/osteophyte complex is identified causing flattening of the ventral border of the thecal sac without significant thecal sac narrowing. There is narrowing of both lateral recesses. Severe left and moderate right neural foraminal narrowing. Bilateral facet arthropathy. Evaluation for scar tissue is limited by the absence of postcontrast images. L4-L5: Bilateral facet arthropathy with hypertrophy of the ligamentum flavum. A broad-based disc bulge is identified, with severe spinal canal stenosis. There is narrowing of both lateral recesses. Moderate left and severe right neural foraminal narrowing identified. L5-S1: Bilateral facet arthropathy with hypertrophy of the ligamentum flavum. Disc bulging visualized, without significant spinal canal stenosis. The thecal sac is tapered at this level, without thecal sac compression. Moderate left and mild right neural foraminal narrowing. Soft tissues: Minimal edema within the subcutaneous tissues posterior to the lumbar spine. Kidneys and ureters: There is a large T2 hyperintense cyst or cystic mass involving the right kidney, which extends out of the field of view of this study. This measures 16.0 cm in diameter. Bilateral hydroureter visualized. IMPRESSION: 1. Degenerative disc disease is noted diffusely within the lumbar spine the, with a decrease in the T2 signal intensity of the discs as well as disc bulge/osteophyte complexes. There is heterogeneous signal intensity of the L2-L3 and L3-L4 discs. Modic endplate changes are identified from L2-L3 through L4-L5, with a decrease in disc height at L2-L3 and L3-L4. 2. Severe spinal canal stenosis at L4-L5, with minimal spinal canal stenosis at L2-L3. 3. Neural foraminal narrowing identified diffusely within the lumbar spine. 4. Mild dextroscoliosis of the lumbar spine. 5. Bilateral laminectomy defects at L3-L4. 6. There is a large cyst or cystic mass involving the right kidney, which extends out of the field of view of this study. Bilateral hydroureter visualized. Refer to the prior CT abdomen/pelvis for further discussion. Electronically signed by: Akash Kim On 01/27/2021 00:30:28 AM
[2021-01-27 04:00] VITALS: BP 121/67
[2021-01-27 06:07] LABS: BASO % 0.2 % (0.0-1.0); EOS # 0.3 10^3/uL (0.0-0.5); EOS % 2.7 % (0.0-3.0); HEMATOCRIT 34.4 % (42.0-52.0); HEMOGLOBIN 11.1 g/dl (13.5-17.5); LYMPH # 1.5 10^3/uL (1.5-5.0); LYMPH % 12.5 % (24.0-44.0); MEAN CORPUSCULAR HEMOGLOBIN 32.1 pg (27.0-33.0); MEAN CORPUSCULAR HGB CONC 32.3 g/dl (32.0-36.5); MEAN CORPUSCULAR VOLUME 99.4 fl (80.0-96.0); MONO # 0.8 10^3/uL (0.0-0.8); NEUTROPHILS # 9.2 10^3/uL (1.5-8.5); NEUTROPHILS % 76.9 % (36.0-66.0); PLATELET COUNT, AUTOMATED 236 10^3/uL (150-450); RED BLOOD COUNT 3.46 10^6/uL (4.30-6.10); WHITE BLOOD COUNT 11.9 10^3/uL (4.0-10.0)
[2021-01-27 06:28] LABS: CALCIUM LEVEL 8.7 MG/DL (8.8-10.2); CREATININE FOR GFR 1.62 MG/DL (0.70-1.30); GLOMERULAR FILTRATION RATE 43.6 (>35); POTASSIUM SERUM 4.4 MEQ/L (3.5-5.1)
[2021-01-27] MEDS: HEPARIN SOD (PORCINE) 5000UNITS/ML 1ML VIAL/SYRINGE SC SCH ×3 (06:36→21:40)
[2021-01-27 08:00] VITALS: BP 123/70
[2021-01-27] MEDS: TAMSULOSIN 0.4 MG CAP PO SCH (09:32)
[2021-01-27] MEDS: ASPIRIN 81MG ENTERIC TABLET PO SCH (09:32)
[2021-01-27] MEDS: allopurinoL 300 MG TAB PO SCH (09:32)
[2021-01-27] MEDS: CARVedilol 6.25 MG TAB PO SCH ×2 (09:32→21:42)
[2021-01-27] MEDS: DOCUSATE SODIUM 100MG CAPSULE PO SCH ×2 (09:32→21:40)
--- NOTE | 2021-01-27 10:57 | IPNPDOC ---
Date Seen The patient was seen on 01/27/21. Progress Note SUBJECTIVE: 80 yo M with a hx of HTN, CKD/PKD, BPH, prostate Ca, nephrolithiasis, gout, DLP, fell while walking to abthroom at home, stating that his legs gave out. He further reported urinary discomfort, with concern for retention. He was admitted for sepsis 2/2 UTI as well as KEATON on CKD. Patient was seen and examined at bedside. No acute events overnight. Reports weakness in legs for past 3 weeks. Denies chest pain, palpitations, n/v/d, fevers or chills. OBJECTIVE PHYSICAL EXAMINATION: VITAL SIGNS: please see below General: NAD, comfortable HEENT: PERRLA, EOMI, sclerae clear Neck: supple, normal ROM, no JVD Respiratory: lungs CTAB, no wheeze, no rales, no crackles CVS: RRR, normal S1, S2, no murmurs Abdo: soft, no masses, no hepatosplenomegaly, BS+, no rebound tenderness Rectal: reduced but present voluntary anal tone, no saddle anesthesia. Extremities: no edema, pulses 2+ MSK: no joint deformities, normal ROM Neuro: 4+/5 strength in bilateral lower extremities. Reduced sensation in distal toes bilaterally. Psych: calm, cooperative, AAO x 3 LABORATORY DATA, IMAGING STUDIES, MICROBIOLOGY: Please see below. MRI lumbar spine wo contrast (01/27/21); 1. Degenerative disc disease is noted diffusely within the lumbar spine the, with a decrease in the T2 signal intensity of the discs as well as disc bulge/osteophyte complexes. There is heterogeneous signal intensity of the L2-L3 and L3-L4 discs. Modic endplate changes are identified from L2-L3 through L4-L5, with a decrease in disc height at L2-L3 and L3-L4. 2. Severe spinal canal stenosis at L4-L5, with minimal spinal canal stenosis at L2-L3. 3. Neural foraminal narrowing identified diffusely within the lumbar spine. 4. Mild dextroscoliosis of the lumbar spine. 5. Bilateral laminectomy defects at L3-L4. 6. There is a large cyst or cystic mass involving the right kidney, which extends out of the field of view of this study. Bilateral hydroureter visualized. Refer to the prior CT abdomen/pelvis for further discussion. CT abdo pelvis wo contrast (01/25/21): IMPRESSION: 1. A small sliding hiatal hernia is present. 2. Multiple predominantly simple renal cysts including a dominant peripherally calcified 16 cm cyst in the left kidney (Bosniak type 2). No further workup recommended. 3. There is diffuse pancreatic atrophy. 4. There is bilateral adrenal hyperplasia. 5. Moderate bilateral hydroureteronephrosis, which may be related to bladder outlet obstruction. 6. There is thickening of the bladder wall with perivesicular inflammatory changes consistent with acute cystitis. 7. Moderate prostatic hyperplasia. 8. Moderate diverticulosis coli. DVT prophylaxis ordered?: Heparin 5000 units q8h ASSESSMENT AND PLAN: Sepsis - likely 2/2 UTI - Presented to the emergency room with complaints of falling - Patient has reported discomfort with urination since 08/2020, in context of prostate ca with likely bladder outliet obstruction per Dr. Yanez. - Lab work consistent with leukocytosis with neutrophil predominance - Lactic acidosis resolved - UA consistent with infection - urine culture did not grow bacteria, but positive for yeast like organism< 20,000 CFUs. - d/w Dr. Tran, does not recommend treating for fungal infection. - blood cultures prelim negative at 24 hours - procal 0.11. WBC trending down, 13.9 to 12.1 to 11.1. - CT abdo pelvis reviewed as above. - c/w IV fluid hydration - c/w Ceftriaxone KEATON on CKD3/bilateral hydroureteronephrosis - Hx of Polycystic kidney disease - Cr trending down, 1.62 today below baseline - Avoid nephrotoxins - maria inserted on 01/26/[address] Yanez - CT abdo pelvis showing bilateral hydroureteronephrosis - d/w Dr. Yanez, likely related to bladder outlet obstruction 2/2 BPH/prostate ca, as long as Cr not increasing, can continue workup as outpatient, including repeat renal US. If Cr worsening, or patient develops flank pain, to obtain repeat renal US. - DC IV hydration Fall - possibly 2/2 orthostatic hypotension - Patient was hypotensive on arrival; has responded to IV fluid hydration - PT and OT continue their assessment - reports weakenss and parasthesia with numbness worsening since 11/2020 - CT abdo showed multilevel spinal stenosis, severe in L4/L5 - MRI lumbar spine showing severe lumbar stenosis at L4/L5 - rectal exam showing dimished, but present voluntary anal tone - I spoke with orthopedic surgeon consumer experience consultant Dr. Alexander, but no spinal credentials - attempted to transfer to [facility] for spinal evaluation, spoke to Dr. Luis Talavera. He recommended no urgent surgical intervention given patient's age and ongoing prostate ca which is likely responsible for urinary retention. He recommended ongoing physical therapy, and to follow up in Spine clinic in [place]. - fall precautions HTN - BP appropriate at this time - will resume HCTZ and ramipril once KEATON resolves DLP - c/w Statin Gout - c/w BPH - c/w Tamsulosin Reported Prostate Cancer - Prior documentation has revealed elevated PSA - however not elevated readings on [employer] - Follows with Dr. Yanez; reports that he has not started therapy at this time, but is in the process - d/w Dr. Yanez, will f/u in clinic. Keep maria in place. Hx of Nephrolithiasis DVT prophylaxis -Heparin 5000 q8h VS, I&O, 24H, Fishbone Vital Signs/I&O Vital Signs Date Time Temp Pulse Resp B/P (MAP) Pulse Ox O2 Delivery O2 Flow Rate FiO2 01/27/21 08:00 98.2 74 18 123/70 (87) 98 Room Air I&O- Last 24 Hours up to 6 AM 01/27/21 05:59 Intake Total 1370 ml Output Total 4250 ml Balance -2880 ml Laboratory Data 24H LABS Laboratory Tests 2 01/27/21 05:45: Immature Granulocyte % (Auto) 0.7, Neutrophils (%) (Auto) 76.9H, Lymphocytes (%) (Auto) 12.5L, Monocytes (%) (Auto) 7.0, Eosinophils (%) (Auto) 2.7, Basophils (%) (Auto) 0.2, Neutrophils # (Auto) 9.2H, Lymphocytes # (Auto) 1.5, Monocytes # (Auto) 0.8, Eosinophils # (Auto) 0.3, Basophils # (Auto) 0.0, Nucleated Red Blood Cells % (auto) 0.0, Anion Gap 7L, Glomerular Filtration Rate 43.6, Calcium Level 8.7L, Magnesium Level 2.0 CBC/BMP Laboratory Tests 01/27/21 05:45 Microbiology Microbiology 01/25/21 Blood Culture - Preliminary, Resulted No growth after 24 hours . All specim... 01/25/21 Blood Culture - Preliminary, Resulted No growth after 24 hours . All specim... 01/25/21 Urine Culture - Final, Complete Yeast Like Organism FLY VELEZ MD Jan 27, 2021 10:57
[2021-01-27 12:00] VITALS: BP 117/60
--- NOTE | 2021-01-27 12:05 | ECHO ---
DATE OF PROCEDURE: 01/26/2021 Age: 80 Gender: Male Height: 178 cm Weight: 104 kg REFERRING PHYSICIAN: Huong Acevedo MD. INDICATION: Sepsis. MEASUREMENTS: IVS 1.0 cm LV 4.2 cm LVPW 1.0 cm LA 4.2 cm Aorta 4.0 cm IVC 1.7 cm Mitral E wave velocity 61 A wave 73 E prime septal 6.1 E prime lateral 7.0 FINDINGS: This study is of fair technical quality. Patient is in sinus rhythm. Left ventricle is normal size and normal systolic function, estimated EF approximately 65 to 70%. I do not appreciate any segmental wall motion abnormality. Right ventricle was relatively poorly visualized, but it appears to have normal size and contractility. Both atria appeared grossly normal. Aortic valve is minimally sclerotic, but mobility of cusps seems preserved. Mitral and tricuspid valve appear normal. Pulmonic valve was not well seen. No pericardial effusion is noted. Inferior vena cava is normal size. Aortic root is normal. Aortic arch and abdominal aorta were not seen. Doppler interrogation of aortic valve reveals trivial stenosis (mean gradient 6 mmHg) and trace insufficiency. Mitral and tricuspid valves are functionally competent. Mitral inflow pattern and tissue Doppler imaging of mitral annulus revealed grade 1 diastolic dysfunction. CONCLUSIONS: 1. Study is of fair technical quality. Underlying sinus rhythm. 2. Normal LV size with preserved LV systolic function and grade 1 diastolic dysfunction. 3. No significant valvular disease. 4. Normal central venous pressure but unable to estimate pulmonary artery pressure. MTDD
[2021-01-27 15:55] VITALS: BP 125/58
[2021-01-27] MEDS: cefTRIAXone SOD 1 GM in D5W MINI-BAG PLUS 50 ML IV SCH (17:22)
[2021-01-27] MEDS: ATORVASTATIN 20 MG TAB PO SCH (21:40)
[2021-01-27 22:00] VITALS: BP 123/58
[2021-01-28] MEDS: HEPARIN SOD (PORCINE) 5000UNITS/ML 1ML VIAL/SYRINGE SC SCH (05:40)
[2021-01-28 06:00] VITALS: BP 118/60
[2021-01-28 07:03] LABS: BASO % 0.2 % (0.0-1.0); EOS # 0.4 10^3/uL (0.0-0.5); EOS % 3.8 % (0.0-3.0); HEMATOCRIT 34.2 % (42.0-52.0); HEMOGLOBIN 11.2 g/dl (13.5-17.5); LYMPH # 1.5 10^3/uL (1.5-5.0); LYMPH % 12.9 % (24.0-44.0); MEAN CORPUSCULAR HEMOGLOBIN 32.4 pg (27.0-33.0); MEAN CORPUSCULAR HGB CONC 32.7 g/dl (32.0-36.5); MEAN CORPUSCULAR VOLUME 98.8 fl (80.0-96.0); MONO # 0.8 10^3/uL (0.0-0.8); NEUTROPHILS # 8.5 10^3/uL (1.5-8.5); NEUTROPHILS % 75.5 % (36.0-66.0); PLATELET COUNT, AUTOMATED 225 10^3/uL (150-450); RED BLOOD COUNT 3.46 10^6/uL (4.30-6.10); WHITE BLOOD COUNT 11.2 10^3/uL (4.0-10.0)
[2021-01-28 07:39] LABS: CALCIUM LEVEL 8.7 MG/DL (8.8-10.2); CREATININE FOR GFR 1.49 MG/DL (0.70-1.30); GLOMERULAR FILTRATION RATE 48.1 (>35); POTASSIUM SERUM 4.2 MEQ/L (3.5-5.1)
[2021-01-28 09:00] VITALS: BP 104/59
[2021-01-28] MEDS: CARVedilol 6.25 MG TAB PO SCH (09:00)
[2021-01-28] MEDS: DOCUSATE SODIUM 100MG CAPSULE PO SCH (09:15)
[2021-01-28] MEDS: allopurinoL 300 MG TAB PO SCH (09:15)
[2021-01-28] MEDS: TAMSULOSIN 0.4 MG CAP PO SCH (09:15)
[2021-01-28] MEDS: ASPIRIN 81MG ENTERIC TABLET PO SCH (09:15)
[2021-01-28 09:16] VITALS: BP 104/59
--- NOTE | 2021-01-28 10:22 | DS.PDOC ---
Discharge Summary General Date of Admission Jan 25, 2021 at 17:34 Date of Discharge 01/28/21 Discharge Summary PROCEDURES PERFORMED DURING STAY: [None]. ADMITTING DIAGNOSES: sepsis 2/2 uti KEATON on CKD3 Fall HTN DLP Gout BPH Hx of prostate ca hx of nephrolithiasis DISCHARGE DIAGNOSES: sepsis 2/2 uti KEATON on CKD3 Severe spinal stenosis at L4/L5 Urinary retention Bilateral hydroureteronephrosis Fall HTN DLP Gout BPH Hx of prostate ca hx of nephrolithiasis COMPLICATIONS/CHIEF COMPLAINT: Keaton/Pyelonephritis/Weakness. HISTORY OF PRESENT ILLNESS: Patient is an 80-year-old male who has reported that earlier this morning he fell while trying to ambulate to the bathroom. Patient reported that his legs had developed anything. He denied any head trauma, loss of consciousness, dizziness, lightheadedness or chest pain, reported that his legs felt heavy. Upon arrival to emergency room, patient has denied any shortness of breath, cough, nausea, vomiting, abdominal pain consultation, diarrhea. Does report discomfort with urination. Has been an ongoing problem for him since 08/2020. Patient has reported that hes been on and off several antibiotics that have been started by urology. Patient denies any fevers but does report chills. He reports a poor appetite and decreased weight of approximately 30 pounds since August. While in the emergency room, patient has a lab work that has shown an elevated white cell count, lactic acidosis and a UA that was consistent with infection. HOSPITAL COURSE: Sepsis - likely 2/2 UTI - Presented to the emergency room with complaints of falling - Patient has reported discomfort with urination since 08/2020, in context of prostate ca with likely bladder outlet obstruction per Dr. Yanez. - hold myrbetriq - Lab work consistent with leukocytosis with neutrophil predominance - Lactic acidosis resolved - UA consistent with infection - urine culture did not grow bacteria, but positive for yeast like organism< 20,000 CFUs. - d/w Dr. Tran, does not recommend treating for fungal infection. - blood cultures prelim negative at 24 hours - procal 0.11. WBC trending down, 13.9 to 12.1 to 11.2 - CT abdo pelvis reviewed as above. - c/w IV fluid hydration - c/w Ceftriaxone, EOT 02/01/21 for 7 day course. KEATON on CKD3/bilateral hydroureteronephrosis - Hx of Polycystic kidney disease - Cr trended down - Avoid nephrotoxins - maria inserted on 01/26/[address] Yanez - CT abdo pelvis showing bilateral hydroureteronephrosis - d/w Dr. Yanez, likely related to bladder outlet obstruction 2/2 BPH/prostate ca, as long as Cr not increasing, can continue workup as outpatient, including repeat renal US. If Cr worsening, or patient develops flank pain, to obtain repeat renal US. - DC IV hydration Urinary retention likely 2/2 bladder outlet obstruction - 2/[address] Yanez, exacerbated by Myrbetriq - maria in place - Cr normalized - c/w flomax - urology outpatient follow up. Fall - possibly 2/2 orthostatic hypotension - Patient was hypotensive on arrival; has responded to IV fluid hydration - PT and OT continue their assessment - reports weakness and parasthesia with numbness worsening since 11/2020 - CT abdo showed multilevel spinal stenosis, severe in L4/L5 - MRI lumbar spine showing severe lumbar stenosis at L4/L5 - rectal exam showing dimished, but present voluntary anal tone - I spoke with orthopedic surgeon inspection engineer Dr. Alexander, but no spinal credentials - attempted to transfer to [facility] for spinal evaluation, spoke to Dr. Luis Talavera. He recommended no urgent surgical intervention given patien t's age and ongoing prostate ca which is likely responsible for urinary retention. He recommended ongoing physical therapy, and to follow up in Spine clinic in [place]. - fall precautions HTN - BP appropriate at this time - will resume HCTZ and ramipril once KEATON resolves - holding BP meds for now. DLP - c/w Statin Gout - c/w BPH - c/w Tamsulosin Reported Prostate Cancer - Prior documentation has revealed elevated PSA - however not elevated readings on [employer] - Follows with Dr. Yanez; reports that he has not started therapy at this time, but is in the process - d/w Dr. Yanez, will f/u in clinic. Keep maria in place. Cr has improved. Hx of Nephrolithiasis DVT prophylaxis -Heparin 5000 q8h I spoke to patient's Mrs. Janelle Quevedo, and answered all questions i n detail on 01/28/21. DISCHARGE MEDICATIONS: Please see below. ALLERGIES: Please see below. PHYSICAL EXAMINATION ON DISCHARGE: General: NAD, comfortable HEENT: PERRLA, EOMI, sclerae clear Neck: supple, normal ROM, no JVD Respiratory: lungs CTAB, no wheeze, no rales, no crackles CVS: RRR, normal S1, S2, no murmurs Abdo: soft, no masses, no hepatosplenomegaly, BS+, no rebound tenderness Rectal: reduced but present voluntary anal tone, no saddle anesthesia. Extremities: no edema, pulses 2+ MSK: no joint deformities, normal ROM Neuro: 4+/5 strength in bilateral lower extremities. Reduced sensation in distal toes bilaterally. Psych: calm, cooperative, AAO x 3 LABORATORY DATA: Please see below. IMAGING: MRI lumbar spine wo contrast (01/27/21): 1. Degenerative disc disease is noted diffusely within the lumbar spine the, with a decrease in the T2 signal intensity of the discs as well as disc bulge/osteophyte complexes. There is heterogeneous signal intensity of the L2-L3 and L3-L4 discs. Modic endplate changes are identified from L2-L3 through L4-L5, with a decrease in disc height at L2-L3 and L3-L4. 2. Severe spinal canal stenosis at L4-L5, with minimal spinal canal stenosis at L2-L3. 3. Neural foraminal narrowing identified diffusely within the lumbar spine. 4. Mild dextroscoliosis of the lumbar spine. 5. Bilateral laminectomy defects at L3-L4. 6. There is a large cyst or cystic mass involving the right kidney, which extends out of the field of view of this study. Bilateral hydroureter visualized. Refer to the prior CT abdomen/pelvis for further discussion. CT abdo pelvis wo contrast (01/25/21): IMPRESSION: 1. A small sliding hiatal hernia is present. 2. Multiple predominantly simple renal cysts including a dominant peripherally calcified 16 cm cyst in the left kidney (Bosniak type 2). No further workup recommended. 3. There is diffuse pancreatic atrophy. 4. There is bilateral adrenal hyperplasia. 5. Moderate bilateral hydroureteronephrosis, which may be related to bladder outlet obstruction. 6. There is thickening of the bladder wall with perivesicular inflammatory changes consistent with acute cystitis. 7. Moderate prostatic hyperplasia. 8. Moderate diverticulosis coli. PROGNOSIS: fair ACTIVITY: 2WW. Assist. Rest per ARU. DIET: 2g sodium restricted DISCHARGE PLAN: transfer to ARU. Complet 7 days of ceftriaxone. Outpatient spine surgery referral. DISPOSITION: . DISCHARGE INSTRUCTIONS: . Please follow-up with your primary care doctor within 3-5 days . Please follow-up with Dr. Yanez (urology) within 1-2 weeks . Please obtain referral from your PCP (Dr. Sarmiento) for spinal surgery on outpatient basis. Patient had verbalized having seen Dr. Car in [facility] in the past. . Please taking medications as prescribed. . If you develop bleeding, chest pain, shortness of breath, seizures, nausea, fevers, or otherwise worsening of your symptoms, please call 911 or return to the nearest emergency room ITEMS TO FOLLOWUP ON ON OUTPATIENT: Final DISCHARGE CONDITION: Stable TIME SPENT ON DISCHARGE: 35 minutes Vital Signs/I&Os Vital Signs Date Time Temp Pulse Resp B/P (MAP) Pulse Ox O2 Delivery O2 Flow Rate FiO2 01/28/21 09:16 104/59 (74) 01/28/21 09:00 75 01/28/21 06:00 97.2 18 96 Room Air I&O- Last 24 Hours up to 6 AM 01/28/21 05:59 Intake Total 1290 ml Output Total 1800 ml Balance -510 ml Laboratory Data Labs 24H Laboratory Tests 2 01/28/21 06:34: Immature Granulocyte % (Auto) 0.6, Neutrophils (%) (Auto) 75.5H, Lymphocytes (%) (Auto) 12.9L, Monocytes (%) (Auto) 7.0, Eosinophils (%) (Auto) 3.8H, Basophils (%) (Auto) 0.2, Neutrophils # (Auto) 8.5, Lymphocytes # (Auto) 1.5, Monocytes # (Auto) 0.8, Eosinophils # (Auto) 0.4, Basophils # (Auto) 0.0, Nucleated Red Blood Cells % (auto) 0.0, Anion Gap 8, Glomerular Filtration Rate 48.1, Calcium Level 8.7L, Magnesium Level 2.0 CBC/BMP Laboratory Tests 01/28/21 06:34 Microbiology Microbiology 01/25/21 Blood Culture - Preliminary, Resulted No Growth after 48 hours. All Specime... 01/25/21 Blood Culture - Preliminary, Resulted No Growth after 48 hours. All Specime... 3/15/21 Urine Culture - Final, Complete Yeast Like Organism Discharge Medications Scheduled Allopurinol (Zyloprim) 300 Mg Tab, 300 MG PO DAILY, (Reported) Aspirin (Aspirin EC) 81 Mg Tabec, 81 MG PO DAILY, (Reported) Atorvastatin Calcium (Atorvastatin Calcium) 20 Mg Tablet, 20 MG PO QHS, (Reported) Carvedilol (Carvedilol) 6.25 Mg Tablet, 6.25 MG PO BID, (Reported) Ceftriaxone in Is-Osm Dextrose (Ceftriaxone 1 gm-D5w Bag) 1 Gm/50 Ml Piggyback, 1 INJ IV DAILY Heparin Sodium,Porcine (Heparin Sodium) 5,000 Unit/1 Ml Syringe, 5,000 UNITS SC Q8H Potassium Citrate (Potassium Citrate ER) 15 Meq Tablet.er, 15 MEQ PO BID, (Reported) Tamsulosin HCl (Flomax) 0.4 Mg Capsule, 0.4 MG PO DAILY, (Reported) dilTIAZem HCl (Diltiazem 24Hr Cd) 240 Mg Cap.er.24h, 240 MG PO DAILY, (Reported) Scheduled PRN Acetaminophen (Acetaminophen) 325 Mg Tablet, 650 MG PO Q4H PRN for PAIN OR FEVER Allergies Coded Allergies: codeine (Verified Adverse Reaction, Intermediate, altered , 11/10/20) FLY VELEZ MD Jan 28, 2021 10:22
[2021-01-28] MEDS ORDERED: HEPA500023 SC (10:43)
[2021-01-28] MEDS ORDERED: ACET1TAB55 PO (10:43)
[2021-01-28] MEDS ORDERED: CEFT1INJ4 IV (10:43)
== END 2021-01-28 13:35 | DRG 872 ==
LOC: EDBD 13:26 → M ED 13:26 → M ED INP 17:34 → ENRESERV 18:15 → M PCU 20:15 → M MS5PR 01-27 15:45
PROVIDERS: ADMIT Internal Medicine; ATTEND Family Medicine
DX: A41.9 Sepsis, unspecified organism (principal); N17.9 Acute kidney failure, unspecified; N39.0 Urinary tract infection, site not specified; N13.30 Unspecified hydronephrosis; E87.2 Acidosis; N18.30 Chronic kidney disease, stage 3 unspecified; I12.9 Hypertensive chronic kidney disease with stage 1 through stage 4 chronic kidney disease, or unspecified chronic kidney disease; C61 Malignant neoplasm of prostate; N40.1 Benign prostatic hyperplasia with lower urinary tract symptoms; M10.9 Gout, unspecified; Z79.82 Long term (current) use of aspirin; Z79.899 Other long term (current) drug therapy; Z88.5 Allergy status to narcotic agent

== ENCOUNTER 2021-01-28 10:26 | Inpatient (IN) | payer MEDICARE, BC ==
[~2021-01-28] VITALS: Ht 180.3 cm; Wt 94.3 kg
[~2021-01-28 10:26] MED LIST changes: +CARV6.25 PO; +DILT240C83 PO; +MYRB50TA PO; +POTA4.25 PO
[2021-01-28] MEDS ORDERED: CEFT1INJ4 IV (10:43)
[2021-01-28] MEDS ORDERED: HEPA500023 SC (10:43)
[2021-01-28] MEDS ORDERED: ACET1TAB55 PO (10:43)
[2021-01-28] MEDS ORDERED: ACETAMINOPHEN TAB 650MG DOSE (2X325MG) PO PRN (11:00)
--- NOTE | 2021-01-28 11:16 | HPEPDOC ---
Research Environmental Scientist Note DATE OF ADMISSION: 01-28-21 DATE OF SERVICE: 01-28-21 TIME OF ADMISSION: Please refer to physician's admission order. SOURCE OF ADMISSION INFORMATION: [facility] record and patient CHIEF COMPLAINT: falls in setting of spinal stenosis and UTI HISTORY OF PRESENT ILLNESS: 80M pmh HTN, HLD, CKD with polycystic kidney disease, gout, BPH, prostate cancer, hx of kidney stones presented to [facility] ED on 01-25-21 complaining of fall with leg weakness. He complained of dysuria with chills in setting of chronic UTIs followed by urology as an outpatient. He had leukocytosis and was hypotensive, diagnosed with sepsis secondary to UTI , and given antibiotics in addition to IV fluids. CT abdomen pelvis showed, Moderate bilateral hydroureteronephrosis, which may be related to bladder outlet obstruction There is thickening of the bladder wall with perivesicular inflammatory changes consistent with acute cystitisModerate prostatic hyperplasia. Urology was consulted who recommended holding his recently started myrbetriq and maria placement with follow-up renal US. He also underwent MRI lumbar imaging which showed severe spinal stenosis and contributed to his LE weakness and paresthesia, for which orthopedics was contacted and did not recommend surgical intervention due to age, but to follow-up in [place] at the spine clinic as outpatient. He was evaluated by therapy, noted to have impairments in mobility and ADLs and deemed medically appropriate for discharge to ARU on 01-28-21. REVIEW OF SYSTEMS: The following is a completed review of systems and has been reviewed. Review of systems otherwise unremarkable. PAIN: Patient self reports no pain EYES: No recent vision changes EARS, NOSE, & THROAT: No throat pain, or dysphagia, or rhinorrhea CARDIOVASCULAR: Denies chest pain or palpitations PULMONARY: Denies shortness of breath GASTROINTESTINAL: Denies constipation/diarrhea GENITOURINARY: +maria MUSCULOSKELETAL: generalized weakness NEUROLOGICAL:+ bilat LE paresthesias HEMATOLOGICAL: denies easy bruising SKIN: denies rash PSYCHIATRIC: Unremarkable All other review of systems found to be negative. PAST MEDICAL HISTORY: as per HPI PAST SURGICAL HISTORY: Back surgery, tonsillectomy, appendectomy, left arm melanoma removal ALLERGIES: Please see below. MEDICATIONS: Please see below. FAMILY HISTORY: Cancer and cardiac SOCIAL HISTORY: Former smoker, no etoh/illicit drugs DIET: 2 gram sodium PHYSICAL EXAMINATION: VITAL SIGNS: Please see below. GENERAL: Pleasant and cooperative. No acute distress. HEENT: PERRL. Extraocular movements intact. Clear conjunctiva CARDIOVASCULAR: Regular rate and rhythm. No murmurs, rubs, or gallops LUNGS: Clear to auscultation bilaterally. No wheezes. No rhonchi ABDOMEN: Soft, nontender, nondistended. Positive bowel sounds. Normal active bowel sounds NEUROLOGICAL: Alert and oriented times three. Cranial nerves II through XII grossly intact. Sensation grossly intact EXTREMITIES: 5\5 strength bilateral upper extremities. 5-\5 strength right lower extremity. 5-/5 strength in left lower extremity. SKIN: no sacral ulcers LABORATORY DATA: Please see below. IMAGING:Imaging documentation personally reviewed by record FUNCTIONAL STATUS: Premorbid: Modified Independent with all activities of daily life as well as mobility On Admission: Min assist bed mobility, dressing, toileting, ambulation GOALS: Mod-I ambulation household distances, dressing, toileting, bathing, functional transfers, bed mobility. ASSESSMENT:80-year-old M with past medical history of recurrent UTIs who presents status post falls in setting of sepsis due to UTI and spinal stenosis PLAN: 1. Rehab- PT/OT advance mobility and ADLs, strengthen/stretch/maintain ROM all 4 limbs 2. Neuro/Ortho- severe spinal stenosis at L4-L5 on recent imaging with bilat LE paresthesias and weakness, will refer to spine clinic in [place] on discharge and monitor for worsening incontinence or weakness 3. cardiac- hx of HTN c/u BP meds, medicine consulted to assist in overall management -HLD- c/u statin -CAD c/u coreg and ASA 4. Resp- monitor for infection, incentive spirometry 5. Renal/- hx of polycystic kidney disease with bilat hydroureteronephrosis followed by urology, c/u maria and f/u outpatient -c/u flomax -hx of BPH with elevated PSA- f/u with Dr. Yanez -acute cystitis- c/u ceftriaxone 6. Parker ppx- protonix 7. DVT ppx- heparin 8. Pain- tylenol prn 9. Psych- patient tearful at beside over his cancer diagnosis and reflecting on the loss of his and children over the years, agrees to trial of antidepre ssant for to help with adjustment 10. DIspo- tbd POST ADMISSION PHYSICIAN EVALUATION: Medical and functional status: Description of medical status, medical assessment: As above. Rehabilitation diagnosis and current and prior cold morbid medical conditions as above. Risk of complications and plans to mitigate them as above. Description of functional status current status is as above. Prior status as above. Status compared to preadmission: There are no clinically significant differences between the patient's current status and the information described on the preadmission screening document. Treatment plan anticipated: Treatment plan is as described above. Required disciplines including physical therapy, occupational therapy, others as noted above. Intensity of services: 3 hours a day, 6 days a week. Special considerations: There are no specific special or safety considerations that would likely preclude immediate implementation of an intensive rehabilitation program or subsequently influence the plan of care. ATTESTATION: Considering all the information above, it is my best judgment that this patient requires intensive rehabilitation therapy as described above and an inpatient hospital environment due to the complexity of nursing, medical, and rehabilitation needs required by the patient. Furthermore, this patient can reasonably be expected to participate in an benefit from an inpatient rehabilitation stay with an interdisciplinary team approach to the delivery of rehabilitation care under the direction and supervision of rehabilitation physician. PROGNOSIS: good ESTIMATED LENGTH OF STAY:10-14 days. PROJECTED DISCHARGE DESTINATION: Home with family support and any durable medical equipment required to increase functional safety and mobility. TIME SPENT COUNSELING AND COORDINATING INITIAL CARE: Greater than 70 minutes. Vital Signs Vital Signs Date Time Temp Pulse Resp B/P (MAP) Pulse Ox O2 Delivery O2 Flow Rate FiO2 01/28/21 14:08 96.7 66 18 129/66 (87) 94 Room Air Home Medications Scheduled Allopurinol (Zyloprim) 300 Mg Tab, 300 MG PO DAILY, (Reported) Aspirin (Aspirin EC) 81 Mg Tabec, 81 MG PO DAILY, (Reported) Atorvastatin Calcium (Atorvastatin Calcium) 20 Mg Tablet, 20 MG PO QHS, (Reported) Carvedilol (Carvedilol) 6.25 Mg Tablet, 6.25 MG PO BID, (Reported) Ceftriaxone in Is-Osm Dextrose (Ceftriaxone 1 gm-D5w Bag) 1 Gm/50 Ml Piggyback, 1 INJ IV DAILY Heparin Sodium,Porcine (Heparin Sodium) 5,000 Unit/1 Ml Syringe, 5,000 UNITS SC Q8H Potassium Citrate (Potassium Citrate ER) 15 Meq Tablet.er, 15 MEQ PO BID, (Reported) Tamsulosin HCl (Flomax) 0.4 Mg Capsule, 0.4 MG PO DAILY, (Reported) dilTIAZem HCl (Diltiazem 24Hr Cd) 240 Mg Cap.er.24h, 240 MG PO DAILY, (Reported) Scheduled PRN Acetaminophen (Acetaminophen) 325 Mg Tablet, 650 MG PO Q4H PRN for PAIN OR FEVER Allergies Coded Allergies: codeine (Verified Adverse Reaction, Intermediate, altered , 11/10/20) A-FIB/CHADSVASC A-FIB History Current/History of A-Fib/PAF?: No Current PO Anticoag Therapy: No SAMINA ALMANZA MD Jan 28, 2021 11:16
[2021-01-28 14:08] VITALS: BP 129/66
[2021-01-28] MEDS: LACTOBACILLUS ACIDOPHILUS CAP (BACID) PO SCH (18:32)
[2021-01-28] MEDS: cefTRIAXone SOD 1 GM in D5W MINI-BAG PLUS 50 ML IV SCH (18:33)
[2021-01-28] MEDS: REMEDY PHYTOPLEX Z-GUARD PASTE 113GM TUBE (FROM STOREROOM PRODUCT) TOP SCH ×2 (18:43→20:45)
[2021-01-28 20:00] VITALS: BP 150/70
[2021-01-28] MEDS: DOCUSATE SODIUM 100MG CAPSULE PO SCH (20:43)
[2021-01-28] MEDS: ATORVASTATIN 20 MG TAB PO SCH (20:43)
[2021-01-28] MEDS: SENNA 8.6 MG TAB (SENOKOT) PO SCH (20:43)
[2021-01-28] MEDS: CARVedilol 6.25 MG TAB PO SCH (20:44)
[2021-01-28] MEDS: HEPARIN SOD (PORCINE) 5000UNITS/ML 1ML VIAL/SYRINGE SC SCH (20:47)
[2021-01-29 05:32] VITALS: BP 141/79
[2021-01-29] MEDS: HEPARIN SOD (PORCINE) 5000UNITS/ML 1ML VIAL/SYRINGE SC SCH ×3 (06:07→22:07)
[2021-01-29 06:41] LABS: BASO % 0.2 % (0.0-1.0); EOS # 0.5 10^3/uL (0.0-0.5); HEMATOCRIT 33.5 % (42.0-52.0); LYMPH % 16.7 % (24.0-44.0); MEAN CORPUSCULAR HGB CONC 32.8 g/dl (32.0-36.5); MEAN CORPUSCULAR VOLUME 97.4 fl (80.0-96.0); MONO # 0.8 10^3/uL (0.0-0.8); MONO % 7.1 % (2.0-8.0); NEUTROPHILS # 8.4 10^3/uL (1.5-8.5); NEUTROPHILS % 71.4 % (36.0-66.0); PLATELET COUNT, AUTOMATED 216 10^3/uL (150-450); RED BLOOD COUNT 3.44 10^6/uL (4.30-6.10); WHITE BLOOD COUNT 11.8 10^3/uL (4.0-10.0)
[2021-01-29 07:53] LABS: ALBUMIN 2.4 GM/DL (3.2-5.2); BILIRUBIN,TOTAL 0.3 MG/DL (0.2-1.0); CALCIUM LEVEL 8.5 MG/DL (8.8-10.2); CREATININE FOR GFR 1.42 MG/DL (0.70-1.30); GLOMERULAR FILTRATION RATE 50.8 (>35); POTASSIUM SERUM 3.9 MEQ/L (3.5-5.1); TOTAL PROTEIN 6.1 GM/DL (6.4-8.2)
[2021-01-29] MEDS: PANTOPRAZOLE 40MG TAB (PROTONIX) PO SCH (09:57)
[2021-01-29] MEDS: TAMSULOSIN 0.4 MG CAP PO SCH (09:57)
[2021-01-29] MEDS: ESCITALOPRAM OXALATE 10 MG TAB (LEXAPRO) PO SCH (09:58)
[2021-01-29] MEDS: LACTOBACILLUS ACIDOPHILUS CAP (BACID) PO SCH ×3 (09:58→17:01)
[2021-01-29] MEDS: DOCUSATE SODIUM 100MG CAPSULE PO SCH ×2 (09:58→20:43)
[2021-01-29] MEDS: allopurinoL 300 MG TAB PO SCH (09:58)
[2021-01-29] MEDS: ASPIRIN 81MG ENTERIC TABLET PO SCH (09:58)
[2021-01-29] MEDS: CARVedilol 6.25 MG TAB PO SCH ×2 (10:00→20:42)
[2021-01-29] MEDS: REMEDY PHYTOPLEX Z-GUARD PASTE 113GM TUBE (FROM STOREROOM PRODUCT) TOP SCH ×3 (10:01→20:43)
[2021-01-29 14:00] VITALS: BP 130/67
[2021-01-29] MEDS: cefTRIAXone SOD 1 GM in D5W MINI-BAG PLUS 50 ML IV SCH (16:08)
[2021-01-29 20:00] VITALS: BP 132/58
--- NOTE | 2021-01-29 20:18 | IPNPDOC ---
Date Seen The patient was seen on 01/29/21. Progress Note SUBJECTIVE: Patient was seen and examined at bedside this morning. Doing well. States no acute events overnight. States he has developed a cough the last 24 hours. Reports a slight discomfort at the Maria site. No abdominal pain. Denies fevers, chills, nausea, vomiting, diarrhea, chest pain, shortness of breath or palpitations. Therapy this time. OBJECTIVE PHYSICAL EXAMINATION: VITAL SIGNS: please see below General: NAD, comfortable HEENT: PERRLA, EOMI, sclerae clear Neck: supple, normal ROM, no JVD Respiratory: lungs CTAB, no wheeze, no rales, no crackles CVS: RRR, normal S1, S2, no murmurs Abdo: soft, no masses, no hepatosplenomegaly, BS+, no rebound tenderness Extremities: no edema, pulses 2+ MSK: no joint deformities, normal ROM Neuro: 4+/5 strength in bilateral lower extremities. Reduced sensation in distal toes bilaterally. Psych: calm, cooperative, AAO x 3 LABORATORY DATA, IMAGING STUDIES, MICROBIOLOGY: Please see below. Echocardiogram: . DVT prophylaxis ordered?: ASSESSMENT AND PLAN: Leukocytosis - mild increase in WBC 11.2 to 11.8 - cough in last 24h - check CXR - presently on ceftriaxone for UTI, organism non isolated - check procal - repeat UA, urine cx #Hx of sepsis 2/2 UTI - resolved - c/w ceftriaxone, EOT 01/12/21 KEATON on CKD3/bilateral hydroureteronephrosis - Hx of Polycystic kidney disease - Cr trending down, 1.62 today below baseline - Avoid nephrotoxins - maria inserted on 01/26/[address] Yanez - CT abdo pelvis showing bilateral hydroureteronephrosis - d/w Dr. Yanez, likely related to bladder outlet obstruction 2/2 BPH/prostate ca, as long as Cr not increasing, can continue workup as outpatient, including repeat renal US. If Cr worsening, or patient develops flank pain, to obtain repeat renal US. - DC IV hydration Fall - possibly 2/2 orthostatic hypotension - Patient was hypotensive on arrival; has responded to IV fluid hydration - PT and OT continue their assessment - reports weakenss and parasthesia with numbness worsening since 11/2020 - CT abdo showed multilevel spinal stenosis, severe in L4/L5 - MRI lumbar spine showing severe lumbar stenosis at L4/L5 - rectal exam showing dimished, but present voluntary anal tone - I spoke with orthopedic surgeon solutions developer Dr. Alexander, but no spinal credentials - attempted to transfer to [facility] for spinal evaluation, spoke to Dr. Luis Talavera. He recommended no urgent surgical intervention given patient's age and ongoing prostate ca which is likely responsible for urinary retention. He recommended ongoing physical therapy, and to follow up in Spine clinic in [place]. - fall precautions HTN - BP appropriate at this time - will resume HCTZ and ramipril once KEATON resolves DLP - c/w Statin Gout - c/w BPH - c/w Tamsulosin Reported Prostate Cancer - Prior documentation has revealed elevated PSA - however not elevated readings on [employer] - Follows with Dr. Yanez; reports that he has not started therapy at this time, but is in the process - d/w Dr. Yanez, will f/u in clinic. Keep maria in place. Hx of Nephrolithiasis DVT prophylaxis -Heparin 5000 q8h VS, I&O, 24H, [place] Vital Signs/I&O Vital Signs Date Time Temp Pulse Resp B/P (MAP) Pulse Ox O2 Delivery O2 Flow Rate FiO2 01/29/21 14:00 96.6 59 20 130/67 (88) 99 Room Air I&O- Last 24 Hours up to 6 AM 01/29/21 06:00 Intake Total 530 ml Output Total 1375 ml Balance -845 ml Laboratory Data 24H LABS Laboratory Tests 2 01/29/21 06:07: Immature Granulocyte % (Auto) 0.6, Neutrophils (%) (Auto) 71.4H, Lymphocytes (%) (Auto) 16.7L, Monocytes (%) (Auto) 7.1, Eosinophils (%) (Auto) 4.0H, Basophils (%) (Auto) 0.2, Neutrophils # (Auto) 8.4, Lymphocytes # (Auto) 2.0, Monocytes # (Auto) 0.8, Eosinophils # (Auto) 0.5, Basophils # (Auto) 0.0, Nucleated Red Blood Cells % (auto) 0.0, Anion Gap 7L, Glomerular Filtration Rate 50.8, Calcium Level 8.5L, Total Bilirubin 0.3, Aspartate Amino Transf (AST/SGOT) 14, Alanine Aminotransferase (ALT/SGPT) 26, Alkaline Phosphatase 72, Total Protein 6.1L, Albumin 2.4L, Albumin/Globulin Ratio 0.6 CBC/BMP Laboratory Tests 01/29/21 06:07 FLY VELEZ MD Jan 29, 2021 20:18
[2021-01-29] MEDS: ATORVASTATIN 20 MG TAB PO SCH (20:43)
[2021-01-29] MEDS: SENNA 8.6 MG TAB (SENOKOT) PO SCH (20:43)
[2021-01-30] MEDS: HEPARIN SOD (PORCINE) 5000UNITS/ML 1ML VIAL/SYRINGE SC SCH ×3 (05:57→21:35)
[2021-01-30 06:13] VITALS: BP 110/53
[2021-01-30 07:31] LABS: BASO % 0.2 % (0.0-1.0); EOS # 0.6 10^3/uL (0.0-0.5); EOS % 4.8 % (0.0-3.0); HEMATOCRIT 33.2 % (42.0-52.0); HEMOGLOBIN 10.8 g/dl (13.5-17.5); LYMPH # 1.6 10^3/uL (1.5-5.0); LYMPH % 12.5 % (24.0-44.0); MEAN CORPUSCULAR HEMOGLOBIN 32.1 pg (27.0-33.0); MEAN CORPUSCULAR HGB CONC 32.5 g/dl (32.0-36.5); MEAN CORPUSCULAR VOLUME 98.8 fl (80.0-96.0); MONO # 0.9 10^3/uL (0.0-0.8); MONO % 6.9 % (2.0-8.0); NEUTROPHILS # 9.8 10^3/uL (1.5-8.5); PLATELET COUNT, AUTOMATED 224 10^3/uL (150-450); RED BLOOD COUNT 3.36 10^6/uL (4.30-6.10); WHITE BLOOD COUNT 13.1 10^3/uL (4.0-10.0)
--- NOTE | 2021-01-30 07:35 | REP ---
INDICATION: cough. COMPARISON: 01/25/2021 TECHNIQUE: Portable AP chest with the patient semi upright. FINDINGS: The lung briggs are clear. Cardiac size is normal. The bret, mediastinum and skeletal structures are unremarkable. There is no interval change. IMPRESSION: Essentially negative portable chest <Electronically signed by César Bueno > 01/30/21 0731
[2021-01-30 07:56] LABS: CALCIUM LEVEL 8.8 MG/DL (8.8-10.2); CREATININE FOR GFR 1.61 MG/DL (0.70-1.30); POTASSIUM SERUM 3.8 MEQ/L (3.5-5.1)
[2021-01-30] MEDS: CARVedilol 6.25 MG TAB PO SCH ×3 (09:00→21:34)
[2021-01-30] MEDS: DOCUSATE SODIUM 100MG CAPSULE PO SCH ×2 (09:00→21:34)
[2021-01-30] MEDS: LACTOBACILLUS ACIDOPHILUS CAP (BACID) PO SCH ×3 (09:26→16:51)
[2021-01-30] MEDS: ASPIRIN 81MG ENTERIC TABLET PO SCH (09:28)
[2021-01-30] MEDS: TAMSULOSIN 0.4 MG CAP PO SCH (09:28)
[2021-01-30] MEDS: ESCITALOPRAM OXALATE 10 MG TAB (LEXAPRO) PO SCH (09:28)
[2021-01-30] MEDS: PANTOPRAZOLE 40MG TAB (PROTONIX) PO SCH (09:28)
[2021-01-30] MEDS: allopurinoL 300 MG TAB PO SCH (09:29)
[2021-01-30] MEDS: REMEDY PHYTOPLEX Z-GUARD PASTE 113GM TUBE (FROM STOREROOM PRODUCT) TOP SCH ×3 (09:29→21:35)
[2021-01-30 14:00] VITALS: BP 129/61
[2021-01-30] MEDS: cefTRIAXone SOD 1 GM in D5W MINI-BAG PLUS 50 ML IV SCH (16:51)
--- NOTE | 2021-01-30 17:18 | IPNPDOC ---
Date Seen The patient was seen on 01/30/21. Progress Note UBJECTIVE: Patient was seen and examined at bedside this morning. Doing well. States no acute events overnight. No abdominal pain. Denies fevers, chills, nausea, vomiting, diarrhea, chest pain, shortness of breath or palpitations. Therapy this time. Mild cough improved. Having mild discomfort at maria. OBJECTIVE PHYSICAL EXAMINATION: VITAL SIGNS: please see below General: NAD, comfortable HEENT: PERRLA, EOMI, sclerae clear Neck: supple, normal ROM, no JVD Respiratory: lungs CTAB, no wheeze, no rales, no crackles CVS: RRR, normal S1, S2, no murmurs Abdo: soft, no masses, no hepatosplenomegaly, BS+, no rebound tenderness Extremities: no edema, pulses 2+ MSK: no joint deformities, normal ROM Neuro: 4+/5 strength in bilateral lower extremities. Reduced sensation in distal toes bilaterally. Psych: calm, cooperative, AAO x 3 LABORATORY DATA, IMAGING STUDIES, MICROBIOLOGY: Please see below. DVT prophylaxis ordered?: ASSESSMENT AND PLAN: Leukocytosis - WBC rising 11.8 to 13.1. - cough in last 24h - check CXR - no evidence of consolidation - presently on ceftriaxone for UTI, organism non isolated - check procal - repeat UA showing pyuiria. LE 3+ - d/w Dr. Patricio. Will repeat renal US in am - possibly need for stenting in am - NPO after midnight. #Hx of sepsis 2/2 UTI - resolved - 6 days of ceftriaxone - repeat UA showing persistent infection KEATON on CKD3/bilateral hydroureteronephrosis - Hx of Polycystic kidney disease - Cr trending down, 1.62 today below baseline - Avoid nephrotoxins - maria inserted on 01/26/[address] Yanez - CT abdo pelvis showing bilateral hydroureteronephrosis - d/w Dr. Yanez, likely related to bladder outlet obstruction 2/2 BPH/prostate ca, as long as Cr not increasing, can continue workup as outpatient, including repeat renal US. If Cr worsening, or patient develops flank pain, to obtain repeat renal US. Fall - possibly 2/2 orthostatic hypotension - Patient was hypotensive on arrival; has responded to IV fluid hydration - PT and OT continue their assessment - reports weakenss and parasthesia with numbness worsening since 11/2020 - CT abdo showed multilevel spinal stenosis, severe in L4/L5 - MRI lumbar spine showing severe lumbar stenosis at L4/L5 - rectal exam showing dimished, but present voluntary anal tone - I spoke with orthopedic surgeon blood bank laboratory professional Dr. Alexander, but no spinal credentials - attempted to transfer to [facility] for spinal evaluation, spoke to Dr. Luis Talavera. He recommended no urgent surgical intervention given patient's age and ongoing prostate ca which is likely responsible for urinary retention. He recommended ongoing physical therapy, and to follow up in Spine clinic in [place]. - fall precautions HTN - BP appropriate at this time - will resume HCTZ and ramipril once KEATON resolves DLP - c/w Statin Gout - c/w BPH - c/w Tamsulosin Reported Prostate Cancer - Prior documentation has revealed elevated PSA - however not elevated readings on [employer] - Follows with Dr. Yanez; reports that he has not started therapy at this time, but is in the process - d/w Dr. Yanez, will f/u in clinic. Keep maria in place. Hx of Nephrolithiasis DVT prophylaxis -Heparin 5000 q8h VS, I&O, 24H, Fishbone Vital Signs/I&O Vital Signs Date Time Temp Pulse Resp B/P (MAP) Pulse Ox O2 Delivery O2 Flow Rate FiO2 01/30/21 14:00 96.5 66 18 129/61 (83) 98 Room Air I&O- Last 24 Hours up to 6 AM 01/30/21 06:00 Intake Total 850 ml Output Total 1000 ml Balance -150 ml Laboratory Data 24H LABS Laboratory Tests 2 01/29/21 23:47: Urine Color YELLOW, Urine Appearance TURBIDH, Urine pH 6.0, Urine Specific [place] 1.010, Urine Protein 2+H, Urine Glucose (UA) NEGATIVE, Urine Ketones NEGATIVE, Urine Blood 3+H, Urine Nitrite NEGATIVE, Urine Bilirubin NEGATIVE, Urine Urobilinogen 0.2, Urine Leukocyte Esterase 3+H, Urine WBC (Auto) TNTCH, Urine RBC (Auto) 69H, Urine Hyaline Casts (Auto) 0, Urine Bacteria (Auto) 2+H, Urine Squamous Epithelial Cells 8, Urine Sperm (Auto) 01/30/21 06:56: Immature Granulocyte % (Auto) 0.6, Neutrophils (%) (Auto) 75.0H, Lymphocytes (%) (Auto) 12.5L, Monocytes (%) (Auto) 6.9, Eosinophils (%) (Auto) 4.8H, Basophils (%) (Auto) 0.2, Neutrophils # (Auto) 9.8H, Lymphocytes # (Auto) 1.6, Monocytes # (Auto) 0.9H, Eosinophils # (Auto) 0.6H, Basophils # (Auto) 0.0, Nucleated Red Blood Cells % (auto) 0.0, Anion Gap 7L, Glomerular Filtration Rate 44.0, Calcium Level 8.8 CBC/BMP Laboratory Tests 01/30/21 06:56 Microbiology Microbiology 01/29/21 Urine Culture, Received Pending FLY VELEZ MD Jan 30, 2021 17:18
[2021-01-30 20:00] VITALS: BP 149/72
[2021-01-30] MEDS: ATORVASTATIN 20 MG TAB PO SCH (21:34)
[2021-01-30] MEDS: SENNA 8.6 MG TAB (SENOKOT) PO SCH (21:34)
[2021-01-31] MEDS: HEPARIN SOD (PORCINE) 5000UNITS/ML 1ML VIAL/SYRINGE SC SCH ×3 (05:38→21:40)
[2021-01-31 05:46] VITALS: BP 137/58
[2021-01-31] MEDS: LACTOBACILLUS ACIDOPHILUS CAP (BACID) PO SCH ×3 (08:00→16:32)
--- NOTE | 2021-01-31 08:02 | REP ---
INDICATION: bilateral hydrouretenephrosis. COMPARISON: Multiple abdomen pelvis CT studies the some with IV contrast, is without IV contrast, the most recent dated 01/25/2021 without IV contrast. TECHNIQUE: Multiple sonographic images of the kidneys and bladder. FINDINGS: The patient has numerous known bilateral renal cysts. These are again identified, of the largest on the right measuring 15.7 x 10.9 x 7.0 cm and the largest on the left measuring 16.8 x 13.5 x 13.3 cm. The majority of the cysts are Bosniak type 1 cyst. However, there are small thin mural calcifications and some of the cysts have small thin wall calcifications upon review of the prior CTs indicating these are Bosniak type 2 cysts. On the comparison CT studies there are numerous cysts within the renal pelvis, likely parapelvic cysts. However, this precludes evaluation for hydronephrosis by ultrasound. If follow-up CT with IV contrast including delayed imaging and during the renal excretion phase is recommended. None of the prior CT studies includes the delayed renal excretion phase. This is cyst differ unchanged parapelvic cysts from hydronephrosis by CT. These peripelvic cyst preclude evaluation for hydronephrosis by ultrasound. There is no hydroureter. There is increased renal cortical echogenicity bilaterally compatible with medical renal disease. No solid renal masses are identified. Bladder: There is a Siddiqi catheter. The bladder is empty and cannot be further evaluated. IMPRESSION: Numerous Bosniak type 1 Bosniak type 2 renal cysts bilaterally including numerous parapelvic renal cysts bilaterally similar to the comparison CT studies. The peripelvic renal cysts preclude evaluation for hydronephrosis by ultrasound. For evaluation of hydronephrosis I would recommend follow-up abdomen/pelvis CT with IV contrast including delayed imaging during the renal excretion phase of contrast enhancement to allow for opacification of the renal calices in order to differentiate them from the peripelvic cysts. CT urogram protocol. None of the prior CT studies that were performed with IV contrast include the delayed renal excretion phase. Bilateral renal cortical echogenicity compatible with medical renal disease. <Electronically signed by César Bueno > 01/31/21 0759
[2021-01-31] MEDS: DOCUSATE SODIUM 100MG CAPSULE PO SCH ×2 (09:00→20:32)
[2021-01-31] MEDS: REMEDY PHYTOPLEX Z-GUARD PASTE 113GM TUBE (FROM STOREROOM PRODUCT) TOP SCH ×3 (09:00→20:32)
[2021-01-31] MEDS: ESCITALOPRAM OXALATE 10 MG TAB (LEXAPRO) PO SCH (09:44)
[2021-01-31] MEDS: TAMSULOSIN 0.4 MG CAP PO SCH (09:44)
[2021-01-31] MEDS: PANTOPRAZOLE 40MG TAB (PROTONIX) PO SCH (09:45)
[2021-01-31] MEDS: CARVedilol 6.25 MG TAB PO SCH ×2 (09:45→20:32)
[2021-01-31] MEDS: allopurinoL 300 MG TAB PO SCH (09:46)
[2021-01-31 10:37] LABS: BASO % 0.2 % (0.0-1.0); EOS # 0.6 10^3/uL (0.0-0.5); EOS % 4.6 % (0.0-3.0); HEMOGLOBIN 11.7 g/dl (13.5-17.5); LYMPH # 1.5 10^3/uL (1.5-5.0); LYMPH % 12.7 % (24.0-44.0); MEAN CORPUSCULAR HEMOGLOBIN 32.1 pg (27.0-33.0); MEAN CORPUSCULAR HGB CONC 32.5 g/dl (32.0-36.5); MEAN CORPUSCULAR VOLUME 98.6 fl (80.0-96.0); MONO # 0.6 10^3/uL (0.0-0.8); NEUTROPHILS # 9.1 10^3/uL (1.5-8.5); PLATELET COUNT, AUTOMATED 250 10^3/uL (150-450); RED BLOOD COUNT 3.65 10^6/uL (4.30-6.10); WHITE BLOOD COUNT 11.8 10^3/uL (4.0-10.0)
[2021-01-31 11:35] LABS: ALBUMIN 2.8 GM/DL (3.2-5.2); BILIRUBIN,TOTAL 0.3 MG/DL (0.2-1.0); CREATININE FOR GFR 1.55 MG/DL (0.70-1.30); GLOMERULAR FILTRATION RATE 45.9 (>35); POTASSIUM SERUM 3.9 MEQ/L (3.5-5.1); TOTAL PROTEIN 6.8 GM/DL (6.4-8.2)
[2021-01-31] MEDS: ASPIRIN 81MG ENTERIC TABLET PO SCH (12:51)
--- NOTE | 2021-01-31 13:08 | REP ---
INDICATION: asses for hydronephrosis. COMPARISON: Renal ultrasound performed earlier today, abdomen and pelvis CT without IV contrast 01/25/2021, CT abdomen pelvis without IV contrast 11/10/2020, CT abdomen pelvis with IV contrast 04/15/2018. TECHNIQUE: CT abdomen pelvis without IV contrast FINDINGS: The patient has known multiple renal cortical cysts including multiple renal parapelvic cysts bilaterally. These are all Bosniak type 1 and type 2 cysts as previously. Because of the multiple peripelvic cysts, hydronephrosis is difficult to evaluate. I would recommend follow-up abdomen pelvis CT with IV contrast including delayed imaging during the renal excretion phase (CT urogram protocol). This would allow for contrast filling of the renal calices to determine if they are dilated or whether all of the cyst-like structures in the renal pelves bilaterally are parapelvic cysts versus dilated renal calyces versus combination. The visualized lung briggs are unremarkable. The unenhanced hepatic parenchyma, gallbladder, pancreas and spleen are unremarkable. The adrenals are unremarkable. There are multiple bilateral renal cysts including multiple parapelvic cysts as discussed above. The abdominal aorta is unremarkable. There is no periaortic adenopathy or mass. The bowel and mesentery are unremarkable. Pelvis: The appendix is unremarkable. There is no adenopathy or ascites. There is a Siddiqi catheter in the bladder and the bladder is collapsed and cannot be further assessed. There are no lytic, blastic or destructive skeletal changes. There is degenerative disc disease at multiple levels in the lumbar spine. There are calcifications within the joint space of the right hip, unchanged from the comparison study. And unchanged from prior studies dating to 06/30/2015. IMPRESSION: The current study is insensitive for evaluation of hydronephrosis as discussed above. A follow-up study with IV contrast using the CT urogram protocol is recommended as discussed above to evaluate for hydronephrosis. There are calcifications within the joint line of the right hip, unchanged from 06/30/2015. <Electronically signed by César Bueno > 01/31/21 [id number]
--- NOTE | 2021-01-31 13:10 | SMCUROLCON ---
Urology Consultation General Date of Consultation 01/31/21 Reason For Consultation This patient is seen for bilateral hydronephrosis secondary to outlet obstruction, hematuria and urinary retention. History of Present Illness The patient is an 80-year-old male with a past medical history for urgency, frequency, slow urinary stream, difficulty voiding, urinary tract infection, bilateral hydronephrosis and new diagnosis prostate cancer. Patient was admitted to the hospital on January 25 after a fall which was thought to be due to sepsis. At that time he had a large bladder volume and bilateral hydronephrosis with a thick walled bladder. A catheter was inserted by Dr. Yanez. Since then, his renal function has improved, but slowly. A renal ultrasound was performed to evaluate his improvement in hydronephrosis but because of large and numerous bilateral renal cysts, this could not be determined. CT scan was ordered but the patient refused to have this performed until he at least had talked to me because he felt that too many tests were being repeated. Since Siddiqi catheter was inserted he states he continues to have occasional bladder spasms. The urine has remained slightly cloudy and today is hematuric. Because of his diminished renal function, contrast is best withheld for his CT scan. Past Medical History Medical History Hypertension Chronic kidney disease Polycystic kidney disease Gout and BPH with obstruction Prostate cancer history of renal calculi HLD Surgical Hstory Back surgery Tonsillectomy appendectomy melanoma removal left arm Prostate biopsy Social History * Smoker: former Smoker Alcohol: Denies Drugs: denies Medications Current Medications Current Medications Medications (Trade) Dose Ordered Sig/Anthony Route PRN Reason Start Time Stop Time Status Last Admin Dose Admin Acetaminophen (Tylenol Tab) 650 mg Q4HP PRN PO fever/MILD PAIN (PS 1-4) 01/28/21 11:00 Allopurinol (Zyloprim) 300 mg DAILY PO 01/29/21 09:00 01/31/21 09:46 Aspirin (Ecotrin) 81 mg DAILY PO 01/29/21 09:00 01/30/21 09:28 Atorvastatin Calcium (Lipitor) 20 mg QHS PO 01/28/21 21:00 01/30/21 21:34 Carvedilol (COReg) 6.25 mg BID PO 01/28/21 21:00 01/31/21 09:45 Ceftriaxone Sodium 1 gm/ Dextrose 50 ml @ 100 mls/hr Q24H IV 01/28/21 17:00 01/30/21 16:51 Diltiazem HCl (Cardizem Cd) 240 mg DAILY PO 01/29/21 09:00 01/31/21 09:46 Docusate Sodium (Colace) 100 mg BID PO 01/28/21 21:00 01/30/21 21:34 Escitalopram Oxalate (Lexapro) 10 mg DAILY PO 01/29/21 09:00 01/31/21 09:44 Heparin Sodium (Porcine) (Heparin) 5,000 units Q8H SC 01/28/21 22:00 01/31/21 05:38 Home Med (Med Rec Complete!) ASDIRECTED XX 01/28/21 15:05 01/28/21 15:22 DC Lactobacillus Acidophilus (Bacid) 1 ea WM PO 01/28/21 18:00 01/30/21 16:51 Pantoprazole Sodium (Protonix) 40 mg DAILY PO 01/29/21 09:00 01/31/21 09:45 Senna (Senokot) 1 tab QHS PO 01/28/21 21:00 01/30/21 21:34 Tamsulosin HCl (Flomax) 0.4 mg DAILY PO 01/29/21 09:00 01/31/21 09:44 Allergies Allergies: Coded Allergies: codeine (Verified Adverse Reaction, Intermediate, altered , 11/10/20) Review of Systems General: Reports: Normal Appetite; Denies: Fatigue, Malaise Constitutional: Denies: Fever, Chills, Sweats, Weakness, Malaise Eyes: Denies: Pain, Vision change ENT: Denies: Head Aches, Sore Throat, Epistaxis Skin: Denies: Rash, Lesions, Breakdown, Nail Changes Pulmonary: Denies: Dyspnea, Cough Cardiovascular: Denies Chest Pain, Denies Palpitations Gastrointestinal: Denies: Nausea, Vomiting, Abdominal Pain Genitourinary: Reports: Retention (urgency, frequency, nocturia, hematuria, u rinary tract infections) Hematologic: Denies: Bruising, Bleeding Excessively Endocrine: Denies: Polydipsia, Polyphagia, Polyuria Musculoskeletal: Denies: Neck Pain, Back Pain Neurological: Denies: Weakness, Numbness, Incoordination, Change in Speech Psych: Denies: Mood Normal, Anxiety, Depression, Memory Issues, Thoughts of Self Harm, Anger, Thoughts of harming Other, Other Psych Physical Examination General Exam: Cooperative EYE EXAM: PERRLA, Conjunctiva & lids normal, EOMI; No: Sclera icteric ENT EXAM: Atraumatic, Mucous membr. moist/pink, Pharynx Normal Neck Exam: Supple; No: JVD, thyromegaly Chest Exam: Clear to auscultation, Normal air movement Heart Exam: Rate Normal, Regular Rhythm, Normal S1, Normal S2; No: Murmurs, Rubs Abdomen Exam: Normal Bowel Sounds, Soft; No: Tenderness, Hepatospenomegaly Male Exam: Normal Genital Exam Male Exam Indwelling Siddiqi catheter draining hematuric urine BRYCE: Good sphincter tone with a 40 g prostate with irregular, nodular texture Extremity Exam: No: Clubbing, Cyanosis, Edema, Normal Pulses, Tenderness, Swelling, Other Skin Exam: Nl turgor and temperature; No: Rash, Breakdown Neuro Exam: Normal Gait, Normal Speech, Cranial Nerves 3-12 NL, Reflexes 2+ Psych Exam: Mental status NL, Mood NL, Oriented x 3 Vital Signs/I&O Vital Signs Date Time Temp Pulse Resp B/P (MAP) Pulse Ox O2 Delivery O2 Flow Rate FiO2 01/31/21 09:45 68 137/58 01/31/21 05:46 97.8 18 97 Room Air I&O- Last 24 Hours up to 6 AM 01/31/21 06:00 Intake Total 490 ml Output Total 1825 ml Balance -1335 ml Laboratory Data 24H Labs Laboratory Tests 2 01/31/21 10:08: Immature Granulocyte % (Auto) 0.5, Neutrophils (%) (Auto) 77.0H, Lymphocytes (%) (Auto) 12.7L, Monocytes (%) (Auto) 5.0, Eosinophils (%) (Auto) 4.6H, Basophils (%) (Auto) 0.2, Neutrophils # (Auto) 9.1H, Lymphocytes # (Auto) 1.5, Monocytes # (Auto) 0.6, Eosinophils # (Auto) 0.6H, Basophils # (Auto) 0.0, Nucleated Red Blood Cells % (auto) 0.0, Anion Gap 4L, Glomerular Filtration Rate 45.9, Calcium Level 9.0, Total Bilirubin 0.3, Aspartate Amino Transf (AST/SGOT) 19, Alanine Aminotransferase (ALT/SGPT) 38, Alkaline Phosphatase 82, Total Protein 6.8, Albumin 2.8L, Albumin/Globulin Ratio 0.7 CBC/BMP Laboratory Tests 01/31/21 10:08 Microbiology Microbiology 01/29/21 Urine Culture - Final, Complete Yeast Like Organism Assessment Bilateral hydronephrosis Hematuria Prostate cancer Urinary retention Plan Bilateral hydronephrosis. This should resolve with Siddiqi catheterization. CT scan is being performed today to further evaluate this. If it does not improve and his kidney function continues to remain low, he may need ureteral stent insertions Hematuria. This should resolve with hydration and is likely secondary to the patient's indwelling Siddiqi catheter with spasms and tissue irritation from recent urinary tract infection. Urine cultures are still pending. Prostate cancer this will likely need treatment with hormones and medications. The patient is not a surgical candidate. Urinary retention I would continue Siddiqi catheterization for now. Once the patient starts hormonal treatments, his prostate obstruction may improve and a trial of voiding can be attempted. His followup CT today shows that there is significantly less ureteral dilation now. PARAMJIT KIRK MD Jan 31, 2021 12:48
[2021-01-31 14:00] VITALS: BP 123/62
--- NOTE | 2021-01-31 15:00 | IPNPDOC ---
Date Seen The patient was seen on 01/31/21. Progress Note UBJECTIVE: Patient was seen and examined at bedside this morning. Doing well. States no acute events overnight. No abdominal pain. Denies fevers, chills, nausea, vomiting, diarrhea, chest pain, shortness of breath or palpitations. Therapy this time. Mild cough improved. Having mild discomfort at maria. OBJECTIVE PHYSICAL EXAMINATION: VITAL SIGNS: please see below General: NAD, comfortable HEENT: PERRLA, EOMI, sclerae clear Neck: supple, normal ROM, no JVD Respiratory: lungs CTAB, no wheeze, no rales, no crackles CVS: RRR, normal S1, S2, no murmurs Abdo: soft, no masses, no hepatosplenomegaly, BS+, no rebound tenderness Extremities: no edema, pulses 2+ MSK: no joint deformities, normal ROM Neuro: 4+/5 strength in bilateral lower extremities. Reduced sensation in distal toes bilaterally. Psych: calm, cooperative, AAO x 3 LABORATORY DATA, IMAGING STUDIES, MICROBIOLOGY: Please see below. DVT prophylaxis ordered?: Y, heparin ASSESSMENT AND PLAN: Leukocytosis - WBC - presently on ceftriaxone for UTI, organism non isolated - repeat UA showing pyuiria. LE 3+. Culture positive for yeast - d/w Dr. Patricio. repeat US unable to interpret for hydronephrosis due to cysts - CT abdo pelvis on 01/31/21 without contrast unable to determine degree by rads, but reviewed by Dr. Patricio, appears that there is significantly less ureteral dilation. - will d/w ID if antimicrobial regimen should be adjusted. Hematuria - seen in maria on 01/31/21 - per Dr. Patricio, likely due to bladder spasms #Hx of sepsis 2/2 UTI - resolved - 6 days of ceftriaxone - repeat UA showing persistent infection, rpeat culture showing yeast like organism KEATON on CKD3/bilateral hydroureteronephrosis - Hx of Polycystic kidney disease - Cr trending down, 1.62 today below baseline - Avoid nephrotoxins - maria inserted on 01/26/[address] Yanez - CT abdo pelvis showing bilateral hydroureteronephrosis - d/w Dr. Yanez, likely related to bladder outlet obstruction 2/2 BPH/prostate ca, as long as Cr not increasing, can continue workup as outpatient, including repeat renal US. If Cr worsening, or patient develops flank pain, to obtain repeat renal US. Fall - possibly 2/2 orthostatic hypotension - Patient was hypotensive on arrival; has responded to IV fluid hydration - PT and OT continue their assessment - reports weakness and paraesthesia with numbness worsening since 11/2020 - CT abdo showed multilevel spinal stenosis, severe in L4/L5 - MRI lumbar spine showing severe lumbar stenosis at L4/L5 - rectal exam showing dimished, but present voluntary anal tone - I spoke with orthopedic surgeon housing liaison Dr. Alexander, but no spinal credentials - attempted to transfer to [facility] for spinal evaluation, spoke to Dr. Luis Talavera on 01/29/21. He recommended no urgent surgical intervention given patient's age and ongoing prostate ca which is likely responsible for urinary retention. He recommended ongoing physical therapy, and to follow up in Spine clinic in [place]. - fall precautions HTN - BP appropriate at this time - will resume HCTZ and ramipril once KEATON resolves DLP - c/w Statin Gout - c/w BPH - c/w Tamsulosin Reported Prostate Cancer - Prior documentation has revealed elevated PSA - however not elevated readings on [employer] - Follows with Dr. Yanez; reports that he has not started therapy at this time, but is in the process - d/w Dr. Yanez, will f/u in clinic. Keep maria in place. Hx of Nephrolithiasis DVT prophylaxis -Heparin 5000 q8h VS, I&O, 24H, Fishbone Vital Signs/I&O Vital Signs Date Time Temp Pulse Resp B/P (MAP) Pulse Ox O2 Delivery O2 Flow Rate FiO2 01/31/21 14:00 96.9 63 18 123/62 (82) 99 Room Air I&O- Last 24 Hours up to 6 AM 01/31/21 06:00 Intake Total 490 ml Output Total 1825 ml Balance -1335 ml Laboratory Data 24H LABS Laboratory Tests 2 01/31/21 10:08: Immature Granulocyte % (Auto) 0.5, Neutrophils (%) (Auto) 77.0H, Lymphocytes (%) (Auto) 12.7L, Monocytes (%) (Auto) 5.0, Eosinophils (%) (Auto) 4.6H, Basophils (%) (Auto) 0.2, Neutrophils # (Auto) 9.1H, Lymphocytes # (Auto) 1.5, Monocytes # (Auto) 0.6, Eosinophils # (Auto) 0.6H, Basophils # (Auto) 0.0, Nucleated Red Blood Cells % (auto) 0.0, Anion Gap 4L, Glomerular Filtration Rate 45.9, Calcium Level 9.0, Total Bilirubin 0.3, Aspartate Amino Transf (AST/SGOT) 19, Alanine Aminotransferase (ALT/SGPT) 38, Alkaline Phosphatase 82, Total Protein 6.8, Albumin 2.8L, Albumin/Globulin Ratio 0.7 CBC/BMP Laboratory Tests 01/31/21 10:08 Microbiology Microbiology 01/29/21 Urine Culture - Final, Complete Yeast Like Organism FLY VELEZ MD Jan 31, 2021 15:00
[2021-01-31] MEDS: cefTRIAXone SOD 1 GM in D5W MINI-BAG PLUS 50 ML IV SCH (16:32)
[2021-01-31 20:00] VITALS: BP 147/70
[2021-01-31] MEDS: ATORVASTATIN 20 MG TAB PO SCH (20:32)
[2021-01-31] MEDS: SENNA 8.6 MG TAB (SENOKOT) PO SCH (20:32)
[2021-02-01 06:00] VITALS: BP 109/63
[2021-02-01] MEDS: HEPARIN SOD (PORCINE) 5000UNITS/ML 1ML VIAL/SYRINGE SC SCH ×3 (06:37→21:35)
[2021-02-01 07:38] LABS: BASO % 0.2 % (0.0-1.0); EOS # 0.6 10^3/uL (0.0-0.5); EOS % 4.9 % (0.0-3.0); HEMATOCRIT 33.5 % (42.0-52.0); HEMOGLOBIN 10.9 g/dl (13.5-17.5); LYMPH # 1.5 10^3/uL (1.5-5.0); MEAN CORPUSCULAR HEMOGLOBIN 32.3 pg (27.0-33.0); MEAN CORPUSCULAR HGB CONC 32.5 g/dl (32.0-36.5); MEAN CORPUSCULAR VOLUME 99.4 fl (80.0-96.0); MONO # 0.8 10^3/uL (0.0-0.8); MONO % 6.8 % (2.0-8.0); NEUTROPHILS # 8.4 10^3/uL (1.5-8.5); NEUTROPHILS % 74.5 % (36.0-66.0); PLATELET COUNT, AUTOMATED 225 10^3/uL (150-450); RED BLOOD COUNT 3.37 10^6/uL (4.30-6.10); WHITE BLOOD COUNT 11.3 10^3/uL (4.0-10.0)
[2021-02-01 08:01] LABS: CALCIUM LEVEL 8.6 MG/DL (8.8-10.2); CREATININE FOR GFR 1.91 MG/DL (0.70-1.30); GLOMERULAR FILTRATION RATE 36.1 (>35); POTASSIUM SERUM 3.9 MEQ/L (3.5-5.1)
[2021-02-01] MEDS: LACTOBACILLUS ACIDOPHILUS CAP (BACID) PO SCH ×3 (08:59→17:19)
[2021-02-01] MEDS: TAMSULOSIN 0.4 MG CAP PO SCH (08:59)
[2021-02-01] MEDS: ESCITALOPRAM OXALATE 10 MG TAB (LEXAPRO) PO SCH (08:59)
[2021-02-01] MEDS: allopurinoL 300 MG TAB PO SCH (08:59)
[2021-02-01] MEDS: PANTOPRAZOLE 40MG TAB (PROTONIX) PO SCH (08:59)
[2021-02-01] MEDS: ASPIRIN 81MG ENTERIC TABLET PO SCH (08:59)
[2021-02-01] MEDS: DOCUSATE SODIUM 100MG CAPSULE PO SCH ×2 (08:59→21:36)
[2021-02-01] MEDS ORDERED: FLUCONAZOLE 100 MG TAB PO SCH (09:00)
[2021-02-01] MEDS: CARVedilol 6.25 MG TAB PO SCH ×2 (09:02→21:36)
[2021-02-01] MEDS: REMEDY PHYTOPLEX Z-GUARD PASTE 113GM TUBE (FROM STOREROOM PRODUCT) TOP SCH ×3 (09:03→21:00)
--- NOTE | 2021-02-01 11:48 | IPNPDOC ---
PM&R Progress Note DATE OF SERVICE: Feb 01, 2021 Infusion Rn Progress Note Subjective: Patient reporting penile pain with movement and would like to try a non-opioid pain medication. REVIEW OF SYSTEMS: The following is a completed review of systems and has been reviewed. Review of systems otherwise unremarkable. PAIN: Patient self reports no pain EYES: No recent vision changes EARS, NOSE, & THROAT: No throat pain, or dysphagia, or rhinorrhea CARDIOVASCULAR: Denies chest pain or palpitations PULMONARY: Denies shortness of breath GASTROINTESTINAL: Denies constipation/diarrhea GENITOURINARY: +maria MUSCULOSKELETAL: generalized weakness NEUROLOGICAL:+ bilat LE paresthesias HEMATOLOGICAL: denies easy bruising SKIN: +groin rash PSYCHIATRIC: Unremarkable All other review of systems found to be negative. PHYSICAL EXAMINATION: VITAL SIGNS: Please see below. GENERAL: Pleasant and cooperative. No acute distress. HEENT: PERRL. Extraocular movements intact. Clear conjunctiva CARDIOVASCULAR: Regular rate and rhythm. No murmurs, rubs, or gallops LUNGS: Clear to auscultation bilaterally. No wheezes. No rhonchi ABDOMEN: Soft, nontender, nondistended. Positive bowel sounds. Normal active bowel sounds NEUROLOGICAL: Alert and oriented times three. Cranial nerves II through XII grossly intact. Sensation grossly intact EXTREMITIES: 5\5 strength bilateral upper extremities. 5-\5 strength right lower extremity. 5-/5 strength in left lower extremity. SKIN: no sacral ulcers +groin rash LABORATORY DATA: Please see below. ASSESSMENT:80-year-old M with past medical history of recurrent UTIs who presents status post falls in setting of sepsis due to UTI and spinal stenosis PLAN: 1. Rehab- PT/OT advance mobility and ADLs, strengthen/stretch/maintain ROM all 4 limbs- ambulating with RW 2. Neuro/Ortho- severe spinal stenosis at L4-L5 on recent imaging with bilat LE paresthesias and weakness, will refer to spine clinic in [place] on discharge and monitor for worsening incontinence or weakness 3. cardiac- hx of HTN c/u BP meds, medicine consulted to assist in overall management -HLD- c/u statin -CAD c/u coreg and ASA 4. Resp- monitor for infection, incentive spirometry 5. Renal/- hx of polycystic kidney disease with bilat hydroureteronephrosis followed by urology-repeat CT per Dr. Nails's read showing resolution of hydroureteronephrosis, c/u maria and f/u outpatient -c/u flomax -renal consulted to assist in management -hx of BPH with elevated PSA- f/u with Dr. Yanez -acute cystitis- c/u ceftriaxone -Ucx + yeast, starting oral fluconazole -groin fungal rash-nystatin powder -hematuria- per urology likely due to bladder irritation in setting of UTI and trauma from catheterization-will monitor H/H 6. Gu ppx- protonix 7. DVT ppx- heparin 8. Pain- tylenol prn, will start gabapentin for penile pain 9. Psych- c/u lexapro for adjustment 10. DIspo- tbd Allergies Coded Allergies: codeine (Verified Adverse Reaction, Intermediate, altered , 11/10/20) Vital Signs Vital Signs Date Time Temp Pulse Resp B/P (MAP) Pulse Ox O2 Delivery O2 Flow Rate FiO2 02/01/21 09:03 61 134/65 02/01/21 06:00 98.0 18 96 Room Air Laboratory Data CBC/BMP Laboratory Tests 02/01/21 07:17 Labs 24H Laboratory Tests 2 02/01/21 07:17: Immature Granulocyte % (Auto) 0.6, Neutrophils (%) (Auto) 74.5H, Lymphocytes (%) (Auto) 13.0L, Monocytes (%) (Auto) 6.8, Eosinophils (%) (Auto) 4.9H, Basophils (%) (Auto) 0.2, Neutrophils # (Auto) 8.4, Lymphocytes # (Auto) 1.5, Monocytes # (Auto) 0.8, Eosinophils # (Auto) 0.6H, Basophils # (Auto) 0.0, Nucleated Red Bl ood Cells % (auto) 0.0, Anion Gap 9, Glomerular Filtration Rate 36.1, Calcium Level 8.6L Microbiology Microbiology 01/29/21 Urine Culture - Final, Complete Yeast Like Organism Current Medications Current Medications Current Medications Medications (Trade) Dose Ordered Sig/Anthony Route PRN Reason Start Time Stop Time Status Last Admin Dose Admin Acetaminophen (Tylenol Tab) 650 mg Q4HP PRN PO fever/MILD PAIN (PS 1-4) 01/28/21 11:00 Allopurinol (Zyloprim) 300 mg DAILY PO 01/29/21 09:00 02/01/21 08:59 Aspirin (Ecotrin) 81 mg DAILY PO 01/29/21 09:00 02/01/21 08:59 Atorvastatin Calcium (Lipitor) 20 mg QHS PO 01/28/21 21:00 01/31/21 20:32 Carvedilol (COReg) 6.25 mg BID PO 01/28/21 21:00 02/01/21 09:02 Ceftriaxone Sodium 1 gm/ Dextrose 50 ml @ 100 mls/hr Q24H IV 01/28/21 17:00 01/31/21 16:32 Diltiazem HCl (Cardizem Cd) 240 mg DAILY PO 01/29/21 09:00 02/01/21 09:03 Docusate Sodium (Colace) 100 mg BID PO 01/28/21 21:00 02/01/21 08:59 Escitalopram Oxalate (Lexapro) 10 mg DAILY PO 01/29/21 09:00 02/01/21 08:59 Heparin Sodium (Porcine) (Heparin) 5,000 units Q8H SC 01/28/21 22:00 02/01/21 06:37 Home Med (Med Rec Complete!) ASDIRECTED XX 01/28/21 15:05 01/28/21 15:22 DC Lactobacillus Acidophilus (Bacid) 1 ea WM PO 01/28/21 18:00 02/01/21 08:59 Pantoprazole Sodium (Protonix) 40 mg DAILY PO 01/29/21 09:00 02/01/21 08:59 Senna (Senokot) 1 tab QHS PO 01/28/21 21:00 01/31/21 20:32 Tamsulosin HCl (Flomax) 0.4 mg DAILY PO 01/29/21 09:00 02/01/21 08:59 SAMINA ALMANZA MD Feb 01, 2021 11:48
[2021-02-01] MEDS: NS 0.45% 1,000 ML IV SCH (12:57)
[2021-02-01] MEDS ORDERED: FLUCONAZOLE 50MG TABLET PO ONE (14:00)
[2021-02-01] MEDS: FLUCONAZOLE 100 MG TAB PO SCH (16:38)
[2021-02-01] MEDS: cefTRIAXone SOD 1 GM in D5W MINI-BAG PLUS 50 ML IV SCH (16:38)
--- NOTE | 2021-02-01 16:45 | IPNPDOC ---
Date Seen The patient was seen on 02/01/21. Progress Note SUBJECTIVE: Patient was seen and examined at bedside this morning. Doing well. States no acute events overnight. No abdominal pain. Denies fevers, chills, nausea, vomiting, diarrhea, chest pain, shortness of breath or palpitations. No more blood in maria. His son is visiting. Good spirits. OBJECTIVE PHYSICAL EXAMINATION: VITAL SIGNS: please see below General: NAD, comfortable HEENT: PERRLA, EOMI, sclerae clear Neck: supple, normal ROM, no JVD Respiratory: lungs CTAB, no wheeze, no rales, no crackles CVS: RRR, normal S1, S2, no murmurs Abdo: soft, no masses, no hepatosplenomegaly, BS+, no rebound tenderness Extremities: no edema, pulses 2+ MSK: no joint deformities, normal ROM Neuro: 4+/5 strength in bilateral lower extremities. Reduced sensation in distal toes bilaterally. Psych: calm, cooperative, AAO x 3 LABORATORY DATA, IMAGING STUDIES, MICROBIOLOGY: Please see below. DVT prophylaxis ordered?: Y, heparin ASSESSMENT AND PLAN: Leukocytosis - WBC slightly elevated ~11-13 - presently on ceftriaxone for UTI, organism non isolated - repeat UA showing pyuiria. LE 3+. Culture positive for yeast - d/w Dr. Patricio. repeat US unable to interpret for hydronephrosis due to cysts - CT abdo pelvis on 01/31/21 without contrast unable to determine degree by rads, but reviewed by Dr. Patricio, appears that there is significantly less ureteral dilation. - D/w Dr. Tran. Start fluconazole 100 mg daily x 10 days (EOT 01/31/21) Hematuria - seen in maria on 01/31/21 - per Dr. Patricio, likely due to bladder spasms #Hx of sepsis 2/2 UTI - resolved - 6 days of ceftriaxone - repeat UA showing persistent infection, rpeat culture showing yeast like organism KEATON on CKD3/bilateral hydroureteronephrosis - Hx of Polycystic kidney disease - C - Avoid nephrotoxins - maria inserted on 01/26/[address] Yanez - CT abdo pelvis showing bilateral hydroureteronephrosis - d/w Dr. Yanez, likely related to bladder outlet obstruction 2/2 BPH/prostate ca - repeat CT abdo on 01/31/[address] Patricio, hydroureteronephrosis resolved - nephrology consulted placed with Dr. Deni Villanueva Fall - possibly 2/2 orthostatic hypotension - Patient was hypotensive on arrival; has responded to IV fluid hydration - PT and OT continue their assessment - reports weakness and paraesthesia with numbness worsening since 11/2020 - CT abdo showed multilevel spinal stenosis, severe in L4/L5 - MRI lumbar spine showing severe lumbar stenosis at L4/L5 - rectal exam showing dimished, but present voluntary anal tone - I spoke with orthopedic surgeon business continuity analyst Dr. Alexander, but no spinal credentials - attempted to transfer to [facility] for spinal evaluation, spoke to Dr. Luis Talavera on 01/29/21. He recommended no urgent surgical intervention given patient's age and ongoing prostate ca which is likely responsible for urinary retention. He recommended ongoing physical therapy, and to follow up in Spine clinic in [place]. - fall precautions HTN - BP appropriate at this time - will resume HCTZ and ramipril once KEATON resolves DLP - c/w Statin Gout - c/w BPH - c/w Tamsulosin Reported Prostate Cancer - Prior documentation has revealed elevated PSA - however not elevated readings on [employer] - Follows with Dr. Yanez; reports that he has not started therapy at this time, but is in the process - d/w Dr. Yanez, will f/u in clinic. Keep maria in place. Hx of Nephrolithiasis DVT prophylaxis -Heparin 5000 q8h VS, I&O, 24H, Fishbone Vital Signs/I&O Vital Signs Date Time Temp Pulse Resp B/P (MAP) Pulse Ox O2 Delivery O2 Flow Rate FiO2 02/01/21 09:03 61 134/65 02/01/21 06:00 98.0 18 96 Room Air I&O- Last 24 Hours up to 6 AM 02/01/21 06:00 Intake Total 220 ml Output Total 2020 ml Balance -1800 ml Laboratory Data 24H LABS Laboratory Tests 2 02/01/21 07:17: Immature Granulocyte % (Auto) 0.6, Neutrophils (%) (Auto) 74.5H, Lymphocytes (%) (Auto) 13.0L, Monocytes (%) (Auto) 6.8, Eosinophils (%) (Auto) 4.9H, Basophils (%) (Auto) 0.2, Neutrophils # (Auto) 8.4, Lymphocytes # (Auto) 1.5, Monocytes # (Auto) 0.8, Eosinophils # (Auto) 0.6H, Basophils # (Auto) 0.0, Nucleated Red Blood Cells % (auto) 0.0, Anion Gap 9, Glomerular Filtration Rate 36.1, Calcium Level 8.6L CBC/BMP Laboratory Tests 02/01/21 07:17 Microbiology Microbiology 01/29/21 Urine Culture - Final, Complete Yeast Like Organism FLY VELEZ MD Feb 01, 2021 16:45
[2021-02-01 20:00] VITALS: BP 135/63
[2021-02-01] MEDS: ATORVASTATIN 20 MG TAB PO SCH (21:35)
[2021-02-01] MEDS: GABAPENTIN 100 MG CAP PO SCH (21:36)
[2021-02-01] MEDS: SENNA 8.6 MG TAB (SENOKOT) PO SCH (21:36)
[2021-02-02] MEDS: NS 0.45% 1,000 ML IV SCH (04:39)
[2021-02-02] MEDS: HEPARIN SOD (PORCINE) 5000UNITS/ML 1ML VIAL/SYRINGE SC SCH ×3 (05:08→21:03)
[2021-02-02 06:00] VITALS: BP 125/74
[2021-02-02] MEDS: TAMSULOSIN 0.4 MG CAP PO SCH (08:16)
[2021-02-02] MEDS: allopurinoL 300 MG TAB PO SCH (08:16)
[2021-02-02] MEDS: DOCUSATE SODIUM 100MG CAPSULE PO SCH ×2 (08:16→20:41)
[2021-02-02] MEDS: PANTOPRAZOLE 40MG TAB (PROTONIX) PO SCH (08:16)
[2021-02-02] MEDS: GABAPENTIN 100 MG CAP PO SCH ×3 (08:16→20:41)
[2021-02-02] MEDS: ESCITALOPRAM OXALATE 10 MG TAB (LEXAPRO) PO SCH (08:16)
[2021-02-02] MEDS: LACTOBACILLUS ACIDOPHILUS CAP (BACID) PO SCH ×3 (08:16→17:17)
[2021-02-02] MEDS: REMEDY PHYTOPLEX Z-GUARD PASTE 113GM TUBE (FROM STOREROOM PRODUCT) TOP SCH ×3 (08:16→20:42)
[2021-02-02] MEDS: ASPIRIN 81MG ENTERIC TABLET PO SCH (08:16)
[2021-02-02] MEDS: FLUCONAZOLE 100 MG TAB PO SCH (08:16)
[2021-02-02 08:20] LABS: CALCIUM LEVEL 8.7 MG/DL (8.8-10.2); CREATININE FOR GFR 1.79 MG/DL (0.70-1.30); GLOMERULAR FILTRATION RATE 38.9 (>35); POTASSIUM SERUM 4.7 MEQ/L (3.5-5.1)
[2021-02-02] MEDS: CARVedilol 6.25 MG TAB PO SCH ×2 (08:22→20:27)
[2021-02-02 14:00] VITALS: BP 127/58
[2021-02-02] MEDS: cefTRIAXone SOD 1 GM in D5W MINI-BAG PLUS 50 ML IV SCH (16:09)
[2021-02-02 20:14] VITALS: BP 120/59
[2021-02-02] MEDS: ATORVASTATIN 20 MG TAB PO SCH (20:41)
[2021-02-02] MEDS: SENNA 8.6 MG TAB (SENOKOT) PO SCH (20:41)
[2021-02-02] MEDS: NYSTATIN 100,000 UNITS/GM TOPICAL PWD 15 GM TOP SCH (20:42)
[2021-02-03] MEDS: HEPARIN SOD (PORCINE) 5000UNITS/ML 1ML VIAL/SYRINGE SC SCH (05:40)
[2021-02-03 06:03] VITALS: BP 131/65
[2021-02-03 08:29] LABS: BASO % 0.1 % (0.0-1.0); EOS # 0.4 10^3/uL (0.0-0.5); EOS % 4.2 % (0.0-3.0); HEMATOCRIT 30.8 % (42.0-52.0); LYMPH # 1.3 10^3/uL (1.5-5.0); LYMPH % 12.2 % (24.0-44.0); MEAN CORPUSCULAR HEMOGLOBIN 31.9 pg (27.0-33.0); MEAN CORPUSCULAR HGB CONC 32.5 g/dl (32.0-36.5); MEAN CORPUSCULAR VOLUME 98.4 fl (80.0-96.0); MONO # 0.7 10^3/uL (0.0-0.8); MONO % 6.8 % (2.0-8.0); NEUTROPHILS # 7.9 10^3/uL (1.5-8.5); NEUTROPHILS % 76.2 % (36.0-66.0); PLATELET COUNT, AUTOMATED 189 10^3/uL (150-450); RED BLOOD COUNT 3.13 10^6/uL (4.30-6.10); WHITE BLOOD COUNT 10.3 10^3/uL (4.0-10.0)
[2021-02-03 08:57] LABS: CALCIUM LEVEL 8.3 MG/DL (8.8-10.2); CREATININE FOR GFR 1.6 MG/DL (0.70-1.30); GLOMERULAR FILTRATION RATE 44.3 (>35); POTASSIUM SERUM 3.9 MEQ/L (3.5-5.1)
[2021-02-03] MEDS: GABAPENTIN 100 MG CAP PO SCH ×3 (10:26→20:29)
[2021-02-03] MEDS: PANTOPRAZOLE 40MG TAB (PROTONIX) PO SCH (10:26)
[2021-02-03] MEDS: TAMSULOSIN 0.4 MG CAP PO SCH (10:26)
[2021-02-03] MEDS: allopurinoL 300 MG TAB PO SCH (10:26)
[2021-02-03] MEDS: ASPIRIN 81MG ENTERIC TABLET PO SCH (10:26)
[2021-02-03] MEDS: FLUCONAZOLE 100 MG TAB PO SCH (10:26)
[2021-02-03] MEDS: ESCITALOPRAM OXALATE 10 MG TAB (LEXAPRO) PO SCH (10:27)
[2021-02-03] MEDS: LACTOBACILLUS ACIDOPHILUS CAP (BACID) PO SCH ×3 (10:27→17:06)
[2021-02-03] MEDS: CARVedilol 6.25 MG TAB PO SCH ×2 (10:27→20:29)
[2021-02-03] MEDS: DOCUSATE SODIUM 100MG CAPSULE PO SCH ×2 (10:27→20:30)
[2021-02-03] MEDS: REMEDY PHYTOPLEX Z-GUARD PASTE 113GM TUBE (FROM STOREROOM PRODUCT) TOP SCH ×3 (10:28→20:29)
[2021-02-03] MEDS: NYSTATIN 100,000 UNITS/GM TOPICAL PWD 15 GM TOP SCH ×2 (10:31→20:30)
--- NOTE | 2021-02-03 12:11 | IPN ---
PROGRESS NOTE DATE: 02/03/2021 SUBJECTIVE: The patient is seen and examined this morning at the bedside in the rehab unit. He continues with gross hematuria to the Siddiqi catheter but his renal function has improved after he received 2 liters of half normal saline at 70 ml/hr and after being on an antifungal for his candiduria. OBJECTIVE: VITAL SIGNS: Temperature 97.1, pulse 53, respiratory rate 18, blood pressure is 131/65, saturating 96% on room air. INTAKE AND OUTPUT: Intake yesterday was 2.3 liters. Urine output was 950, weight on the bed scale today is not recorded. GENERAL: Patient is seen sitting in the wheelchair, awake, alert and oriented in no apparent distress. HEENT: Extraocular muscles are intact. Tongue is moist. NECK: Supple. Jugular veins are not elevated while he is sitting upright. HEART: Heart sounds are regular, S1 and S2. No murmur. LUNGS: Clear to auscultation bilaterally. No crackle or rale. ABDOMEN: Soft and nontender and protuberant. I could not palpate for enlarged kidneys while he was sitting upright in the wheelchair. EXTREMITIES: Negative for edema or clubbing. GENITOURINARY: Indwelling Siddiqi catheter with gross hematuria but there is no longer a cloudy nor milky appearance to the urine. NEUROLOGIC: He is oriented x3 at baseline mentation. PSYCHIATRIC: Appropriate mood and affect. LABORATORY DATA: Sodium 141, potassium 3.9, bicarbonate 22, BUN 42, creatinine 1.6. Hemoglobin is 10.0, platelets are 189,000. INPATIENT MEDICATIONS: Reviewed by myself. No change noted over the past day. PROBLEMS: 1. KEATON superimposed on CKD Stage III in this patient with underlying autosomal dominant polycystic kidney disease. His baseline creatinine is in the low 1s. The last time he was seen in the office was the summer with a creatinine of 1.0 at that time. His acute kidney injury was initially secondary to bilateral hydroureteronephrosis secondary to bladder outlet obstruction from prostate cancer. He had a Siddiqi catheter placed and creatinine had initially downtrended nicely but then melissa again and urine culture revealed yeast-like organism. The urine was noted to have a milky or cloudy appearance. He may have an infected cyst which are notoriously difficult to treat. I agree with continuation of fluconazole for a 10 day treatment and also continuation of Ceftriaxone. His urine today no longer has that milky or cloudy appearance that it did several days ago. His renal function has improved after gentle IV fluids as well and the patient is encouraged for liberal oral hydration. 2. Funguria and possible infected renal cyst in this patient with known polycystic kidneys. Continue Ceftriaxone and continue with 10 day course of fluconazole. The urine no longer has a milky nor cloudy appearance. His gross hematuria does persistent for which I advised him that he needs to continue with liberal hydration. His white count is coming down. 3. Status post obstructive uropathy. He will remain with indwelling Siddiqi catheter for the time being. He will follow-up with Urology for further treatment of his bladder outlet obstruction and prostate cancer. He is on Flomax. 4. Hypertension, blood pressures are acceptable on current regimen of Diltiazem and Carvedilol.
[2021-02-03 14:00] VITALS: BP 138/65
[2021-02-03 20:00] VITALS: BP 133/62
[2021-02-03] MEDS: SENNA 8.6 MG TAB (SENOKOT) PO SCH (20:29)
[2021-02-03] MEDS: ATORVASTATIN 20 MG TAB PO SCH (20:29)
[2021-02-04 06:00] VITALS: BP 144/62
[2021-02-04 06:52] LABS: BASO % 0.1 % (0.0-1.0); EOS # 0.5 10^3/uL (0.0-0.5); EOS % 5.1 % (0.0-3.0); HEMATOCRIT 31.9 % (42.0-52.0); HEMOGLOBIN 10.2 g/dl (13.5-17.5); LYMPH # 1.7 10^3/uL (1.5-5.0); LYMPH % 17.6 % (24.0-44.0); MEAN CORPUSCULAR HEMOGLOBIN 32.1 pg (27.0-33.0); MEAN CORPUSCULAR VOLUME 100.3 fl (80.0-96.0); MONO # 0.7 10^3/uL (0.0-0.8); MONO % 7.6 % (2.0-8.0); NEUTROPHILS # 6.6 10^3/uL (1.5-8.5); PLATELET COUNT, AUTOMATED 206 10^3/uL (150-450); RED BLOOD COUNT 3.18 10^6/uL (4.30-6.10); WHITE BLOOD COUNT 9.6 10^3/uL (4.0-10.0)
[2021-02-04 07:24] LABS: CALCIUM LEVEL 8.9 MG/DL (8.8-10.2); CREATININE FOR GFR 1.58 MG/DL (0.70-1.30); GLOMERULAR FILTRATION RATE 44.9 (>35); POTASSIUM SERUM 3.9 MEQ/L (3.5-5.1)
[2021-02-04] MEDS: CARVedilol 6.25 MG TAB PO SCH ×2 (09:00→20:59)
[2021-02-04] MEDS: PANTOPRAZOLE 40MG TAB (PROTONIX) PO SCH (09:25)
[2021-02-04] MEDS: FLUCONAZOLE 100 MG TAB PO SCH (09:25)
[2021-02-04] MEDS: DOCUSATE SODIUM 100MG CAPSULE PO SCH ×2 (09:28→20:59)
[2021-02-04] MEDS: LACTOBACILLUS ACIDOPHILUS CAP (BACID) PO SCH ×3 (09:28→17:26)
[2021-02-04] MEDS: ASPIRIN 81MG ENTERIC TABLET PO SCH (09:28)
[2021-02-04] MEDS: allopurinoL 300 MG TAB PO SCH (09:28)
[2021-02-04] MEDS: GABAPENTIN 100 MG CAP PO SCH ×3 (09:28→20:58)
[2021-02-04] MEDS: ESCITALOPRAM OXALATE 10 MG TAB (LEXAPRO) PO SCH (09:28)
[2021-02-04] MEDS: TAMSULOSIN 0.4 MG CAP PO SCH (09:28)
[2021-02-04] MEDS: NYSTATIN 100,000 UNITS/GM TOPICAL PWD 15 GM TOP SCH ×2 (09:29→21:00)
[2021-02-04] MEDS: REMEDY PHYTOPLEX Z-GUARD PASTE 113GM TUBE (FROM STOREROOM PRODUCT) TOP SCH ×3 (09:30→21:00)
--- NOTE | 2021-02-04 10:45 | IPNPDOC ---
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 REVIEW OF SYSTEMS: The following is a completed review of systems and has been reviewed. Review of systems otherwise unremarkable. PAIN: Patient self reports no pain EYES: No recent vision changes EARS, NOSE, & THROAT: No throat pain, or dysphagia, or rhinorrhea CARDIOVASCULAR: Denies chest pain or palpitations PULMONARY: Denies shortness of breath GASTROINTESTINAL: Denies constipation/diarrhea GENITOURINARY: +maria MUSCULOSKELETAL: generalized weakness NEUROLOGICAL:+ bilat LE paresthesias HEMATOLOGICAL: denies easy bruising SKIN: +groin rash PSYCHIATRIC: Unremarkable All other review of systems found to be negative. PHYSICAL EXAMINATION: VITAL SIGNS: Please see below. GENERAL: Pleasant and cooperative. No acute distress. HEENT: PERRL. Extraocular movements intact. Clear conjunctiva CARDIOVASCULAR: Regular rate and rhythm. No murmurs, rubs, or gallops LUNGS: Clear to auscultation bilaterally. No wheezes. No rhonchi ABDOMEN: Soft, nontender, nondistended. Positive bowel sounds. Normal active bowel sounds NEUROLOGICAL: Alert and oriented times three. Cranial nerves II through XII grossly intact. Sensation grossly intact EXTREMITIES: 5\5 strength bilateral upper extremities. 5-\5 strength right lower extremity. 5-/5 strength in left lower extremity. SKIN: no sacral ulcers +groin rash LABORATORY DATA: Please see below. ASSESSMENT:80-year-old M with past medical history of recurrent UTIs who presents status post falls in setting of sepsis due to UTI and spinal stenosis PLAN: 1. Rehab- PT/OT advance mobility and ADLs, strengthen/stretch/maintain ROM all 4 limbs- ambulating with , room privileges 2. Neuro/Ortho- severe spinal stenosis at L4-L5 on recent imaging with bilat LE paresthesias and weakness, will refer to spine clinic in [place] on discharge and monitor for worsening incontinence or weakness- no new weakness or bowel incontinence 3. cardiac- hx of HTN c/u BP meds, medicine consulted to assist in overall management -HLD- c/u statin -CAD c/u coreg and ASA 4. Resp- monitor for infection, incentive spirometry 5. Renal/- hx of polycystic kidney disease with bilat hydroureteronephrosis followed by urology-repeat CT per Dr. Nails's read showing resolution of hydroureteronephrosis, c/u maria and f/u outpatient -c/u flomax -renal consulted to assist in management, receiving IVF for KEATON -hx of BPH with elevated PSA- f/u with Dr. Yanez -acute cystitis- c/u ceftriaxone -Ucx + yeast, c/u oral fluconazole x 10 days total -groin fungal rash-nystatin powder -hematuria- per urology likely due to bladder irritation in setting of UTI and trauma from catheterization-will monitor H/H 6. Gu ppx- protonix 7. DVT ppx- heparin 8. Pain- tylenol prn, c/u gabapentin for penile pain 9. Psych- c/u lexapro for adjustment 10. DIspo- 02-05-21 to home, progressing towards goals Allergies Coded Allergies: codeine (Verified Adverse Reaction, Intermediate, altered , 11/10/20) Vital Signs Vital Signs Date Time Temp Pulse Resp B/P (MAP) Pulse Ox O2 Delivery O2 Flow Rate FiO2 02/04/21 09:00 60 102/52 02/04/21 06:00 97.1 18 99 Room Air Laboratory Data CBC/BMP Laboratory Tests 02/04/21 05:37 Labs 24H Laboratory Tests 2 02/04/21 05:37: Immature Granulocyte % (Auto) 0.6, Neutrophils (%) (Auto) 69.0H, Lymphocytes (%) (Auto) 17.6L, Monocytes (%) (Auto) 7.6, Eosinophils (%) (Auto) 5.1H, Basophils (%) (Auto) 0.1, Neutrophils # (Auto) 6.6, Lymphocytes # (Auto) 1.7, Monocytes # (Auto) 0.7, Eosinophils # (Auto) 0.5, Basophils # (Auto) 0.0, Nucleated Red Blood Cells % (auto) 0.0, Anion Gap 8, Glomerular Filtration Rate 44.9, Calcium Level 8.9 Microbiology Microbiology 01/29/21 Urine Culture - Final, Complete Yeast Like Organism Current Medications Current Medications Current Medications Medications (Trade) Dose Ordered Sig/Anthony Route PRN Reason Start Time Stop Time Status Last Admin Dose Admin Acetaminophen (Tylenol Tab) 650 mg Q4HP PRN PO fever/MILD PAIN (PS 1-4) 01/28/21 11:00 02/01/21 21:37 Allopurinol (Zyloprim) 300 mg DAILY PO 01/29/21 09:00 02/04/21 09:28 Aspirin (Ecotrin) 81 mg DAILY PO 01/29/21 09:00 02/04/21 09:28 Atorvastatin Calcium (Lipitor) 20 mg QHS PO 01/28/21 21:00 02/03/21 20:29 Carvedilol (COReg) 6.25 mg BID PO 01/28/21 21:00 02/03/21 20:29 Ceftriaxone Sodium 1 gm/ Dextrose 50 ml @ 100 mls/hr Q24H IV 01/28/21 17:00 02/03/21 12:43 DC 02/02/21 16:09 Diltiazem HCl (Cardizem Cd) 240 mg DAILY PO 01/29/21 09:00 02/03/21 10:27 Docusate Sodium (Colace) 100 mg BID PO 01/28/21 21:00 02/04/21 09:28 Escitalopram Oxalate (Lexapro) 10 mg DAILY PO 01/29/21 09:00 02/04/21 09:28 Fluconazole (Diflucan Tablet) 100 mg DAILY PO 02/01/21 09:00 02/01/21 19:38 DC Fluconazole (Diflucan Tablet) 100 mg DAILY PO 02/01/21 16:00 02/12/21 15:59 02/04/21 09:25 Gabapentin (Neurontin) 100 mg TID PO 02/01/21 21:00 02/04/21 09:28 Heparin Sodium (Porcine) (Heparin) 5,000 units Q8H SC 01/28/21 22:00 02/03/21 11:53 DC 02/03/21 05:40 Home Med (Med Rec Complete!) ASDIRECTED XX 01/28/21 15:05 01/28/21 15:22 DC Lactobacillus Acidophilus (Bacid) 1 ea WM PO 01/28/21 18:00 02/04/21 09:28 Nystatin (Mycostatin Powder, Nystop) apply to groin BID TOP 02/02/21 21:00 02/04/21 09:29 Pantoprazole Sodium (Protonix) 40 mg DAILY PO 01/29/21 09:00 02/04/21 09:25 Senna (Senokot) 1 tab QHS PO 01/28/21 21:00 02/02/21 20:41 Sodium Chloride 1,000 ml @ 70 mls/hr [id number] IV 02/01/21 12:30 02/02/21 17:04 DC 02/02/21 04:39 Tamsulosin HCl (Flomax) 0.4 mg DAILY PO 01/29/21 09:00 02/04/21 09:28 SAMINA ALMANZA MD Feb 04, 2021 10:45
--- NOTE | 2021-02-04 10:53 | IPNPDOC ---
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 REVIEW OF SYSTEMS: The following is a completed review of systems and has been reviewed. Review of systems otherwise unremarkable. PAIN: Patient self reports no pain EYES: No recent vision changes EARS, NOSE, & THROAT: No throat pain, or dysphagia, or rhinorrhea CARDIOVASCULAR: Denies chest pain or palpitations PULMONARY: Denies shortness of breath GASTROINTESTINAL: Denies constipation/diarrhea GENITOURINARY: +maria MUSCULOSKELETAL: generalized weakness NEUROLOGICAL:+ bilat LE paresthesias HEMATOLOGICAL: denies easy bruising SKIN: +groin rash PSYCHIATRIC: Unremarkable All other review of systems found to be negative. PHYSICAL EXAMINATION: VITAL SIGNS: Please see below. GENERAL: Pleasant and cooperative. No acute distress. HEENT: PERRL. Extraocular movements intact. Clear conjunctiva CARDIOVASCULAR: Regular rate and rhythm. No murmurs, rubs, or gallops LUNGS: Clear to auscultation bilaterally. No wheezes. No rhonchi ABDOMEN: Soft, nontender, nondistended. Positive bowel sounds. Normal active bowel sounds NEUROLOGICAL: Alert and oriented times three. Cranial nerves II through XII grossly intact. Sensation grossly intact EXTREMITIES: 5\5 strength bilateral upper extremities. 5-\5 strength right lower extremity. 5-/5 strength in left lower extremity. SKIN: no sacral ulcers +groin rash LABORATORY DATA: Please see below. ASSESSMENT:80-year-old M with past medical history of recurrent UTIs who pres ents status post falls in setting of sepsis due to UTI and spinal stenosis PLAN: 1. Rehab- PT/OT advance mobility and ADLs, strengthen/stretch/maintain ROM all 4 limbs- ambulating with , room privileges 2. Neuro/Ortho- severe spinal stenosis at L4-L5 on recent imaging with bilat LE paresthesias and weakness, will refer to spine clinic in [place] on discharge and monitor for worsening incontinence or weakness- no new weakness or bowel incontinence 3. cardiac- hx of HTN c/u BP meds, medicine consulted to assist in overall management -HLD- c/u statin -CAD c/u coreg and ASA 4. Resp- monitor for infection, incentive spirometry 5. Renal/- hx of polycystic kidney disease with bilat hydroureteronephrosis followed by urology-repeat CT per Dr. Nails's read showing resolution of hydroureteronephrosis, c/u maria and f/u outpatient -c/u flomax -renal consulted to assist in management, receiving IVF for KEATON -hx of BPH with elevated PSA- f/u with Dr. Yanez -acute cystitis- will stop ceftriaxone as he has had 10 days total treatment with Cx negative for bacteria -Ucx + yeast, c/u oral fluconazole x 10 days total -groin fungal rash-nystatin powder -hematuria- per urology likely due to bladder irritation in setting of UTI and trauma from catheterization-will monitor H/H and d/c heparin 6. Gu ppx- protonix 7. DVT ppx- stopping heparin due to hematuria 8. Pain- tylenol prn, c/u gabapentin for penile pain 9. Psych- c/u lexapro for adjustment 10. DIspo- 02-05-21 to home, progressing towards goals Allergies Coded Allergies: codeine (Verified Adverse Reaction, Intermediate, altered , 11/10/20) Vital Signs Vital Signs Date Time Temp Pulse Resp B/P (MAP) Pulse Ox O2 Delivery O2 Flow Rate FiO2 02/04/21 09:00 60 102/52 02/04/21 06:00 97.1 18 99 Room Air Laboratory Data CBC/BMP Laboratory Tests 02/04/21 05:37 Labs 24H Laboratory Tests 2 02/04/21 05:37: Immature Granulocyte % (Auto) 0.6, Neutrophils (%) (Auto) 69.0H, Lymphocytes (%) (Auto) 17.6L, Monocytes (%) (Auto) 7.6, Eosinophils (%) (Auto) 5.1H, Basophils (%) (Auto) 0.1, Neutrophils # (Auto) 6.6, Lymphocytes # (Auto) 1.7, Monocytes # (Auto) 0.7, Eosinophils # (Auto) 0.5, Basophils # (Auto) 0.0, Nucleated Red Blood Cells % (auto) 0.0, Anion Gap 8, Glomerular Filtration Rate 44.9, Calcium Level 8.9 Microbiology Microbiology 01/29/21 Urine Culture - Final, Complete Yeast Like Organism Current Medications Current Medications Current Medications Medications (Trade) Dose Ordered Sig/Anthony Route PRN Reason Start Time Stop Time Status Last Admin Dose Admin Acetaminophen (Tylenol Tab) 650 mg Q4HP PRN PO fever/MILD PAIN (PS 1-4) 01/28/21 11:00 02/01/21 21:37 Allopurinol (Zyloprim) 300 mg DAILY PO 01/29/21 09:00 02/04/21 09:28 Aspirin (Ecotrin) 81 mg DAILY PO 01/29/21 09:00 02/04/21 09:28 Atorvastatin Calcium (Lipitor) 20 mg QHS PO 01/28/21 21:00 02/03/21 20:29 Carvedilol (COReg) 6.25 mg BID PO 01/28/21 21:00 02/03/21 20:29 Ceftriaxone Sodium 1 gm/ Dextrose 50 ml @ 100 mls/hr Q24H IV 01/28/21 17:00 02/03/21 12:43 DC 02/02/21 16:09 Diltiazem HCl (Cardizem Cd) 240 mg DAILY PO 01/29/21 09:00 02/03/21 10:27 Docusate Sodium (Colace) 100 mg BID PO 01/28/21 21:00 02/04/21 09:28 Escitalopram Oxalate (Lexapro) 10 mg DAILY PO 01/29/21 09:00 02/04/21 09:28 Fluconazole (Diflucan Tablet) 100 mg DAILY PO 02/01/21 09:00 02/01/21 19:38 DC Fluconazole (Diflucan Tablet) 100 mg DAILY PO 02/01/21 16:00 02/12/21 15:59 02/04/21 09:25 Gabapentin (Neurontin) 100 mg TID PO 02/01/21 21:00 02/04/21 09:28 Heparin Sodium (Porcine) (Heparin) 5,000 units Q8H SC 01/28/21 22:00 02/03/21 11:53 DC 02/03/21 05:40 Home Med (Med Rec Complete!) ASDIRECTED XX 01/28/21 15:05 01/28/21 15:22 DC Lactobacillus Acidophilus (Bacid) 1 ea WM PO 01/28/21 18:00 02/04/21 09:28 Nystatin (Mycostatin Powder, Nystop) apply to groin BID TOP 02/02/21 21:00 02/04/21 09:29 Pantoprazole Sodium (Protonix) 40 mg DAILY PO 01/29/21 09:00 02/04/21 09:25 Senna (Senokot) 1 tab QHS PO 01/28/21 21:00 02/02/21 20:41 Sodium Chloride 1,000 ml @ 70 mls/hr [id number] IV 02/01/21 12:30 02/02/21 17:04 DC 02/02/21 04:39 Tamsulosin HCl (Flomax) 0.4 mg DAILY PO 01/29/21 09:00 02/04/21 09:28 SAMINA ALMANZA MD Feb 04, 2021 10:53
[2021-02-04] MEDS ORDERED: RISATAB3 PO (11:40)
[2021-02-04] MEDS ORDERED: FLOM0.4C39 PO (11:40)
[2021-02-04] MEDS ORDERED: ATOR1TAB21 PO (11:40)
[2021-02-04] MEDS ORDERED: ZYLO300T6 PO (11:40)
[2021-02-04] MEDS ORDERED: LEXA1TAB PO (11:40)
[2021-02-04] MEDS ORDERED: NYST10006 TOP (11:40)
[2021-02-04] MEDS ORDERED: ASPI-569 PO (11:40)
[2021-02-04] MEDS ORDERED: DILT240C83 PO (11:40)
[2021-02-04] MEDS ORDERED: GABA-1171 PO (11:40)
[2021-02-04] MEDS ORDERED: FLUC100T PO (11:40)
[2021-02-04] MEDS ORDERED: CARV6.25 PO (11:40)
[2021-02-04 14:00] VITALS: BP 117/56
[2021-02-04] MEDS: ATORVASTATIN 20 MG TAB PO SCH (20:59)
[2021-02-04 21:00] VITALS: BP 131/60
[2021-02-04] MEDS: SENNA 8.6 MG TAB (SENOKOT) PO SCH (21:00)
[2021-02-05] MEDS: ASPIRIN 81MG ENTERIC TABLET PO SCH (08:42)
[2021-02-05] MEDS: ESCITALOPRAM OXALATE 10 MG TAB (LEXAPRO) PO SCH (08:42)
[2021-02-05] MEDS: GABAPENTIN 100 MG CAP PO SCH (08:42)
[2021-02-05] MEDS: allopurinoL 300 MG TAB PO SCH (08:42)
[2021-02-05 08:43] VITALS: BP 131/60
[2021-02-05] MEDS: FLUCONAZOLE 100 MG TAB PO SCH (08:43)
[2021-02-05] MEDS: PANTOPRAZOLE 40MG TAB (PROTONIX) PO SCH (08:43)
[2021-02-05] MEDS: TAMSULOSIN 0.4 MG CAP PO SCH (08:43)
[2021-02-05] MEDS: LACTOBACILLUS ACIDOPHILUS CAP (BACID) PO SCH (08:43)
[2021-02-05] MEDS: DOCUSATE SODIUM 100MG CAPSULE PO SCH (08:43)
[2021-02-05] MEDS: NYSTATIN 100,000 UNITS/GM TOPICAL PWD 15 GM TOP SCH (08:44)
[2021-02-05] MEDS: REMEDY PHYTOPLEX Z-GUARD PASTE 113GM TUBE (FROM STOREROOM PRODUCT) TOP SCH (08:45)
[2021-02-05] MEDS: CARVedilol 6.25 MG TAB PO SCH (08:47)
--- NOTE | 2021-02-05 09:14 | IPN ---
NEPHROLOGY PROGRESS NOTE DATE: 02/04/2021 SUBJECTIVE: Mr. Quevedo is seen this morning at his bedside. He is just finishing up his bath. His Siddiqi catheter is draining cloudy urine with some hematuria. He denied any fever or chills. There is no dyspnea, chest pain, nausea or vomiting. He is currently in acute rehab. OBJECTIVE: PHYSICAL EXAMINATION: VITAL SIGNS: Temperature 97.1 degrees Fahrenheit, heart rate 56 per minute, respiratory rate 18 per minute, blood pressure 144/62 mm of mercury and oxygen saturation is 99% on room air. HEENT: His head is atraumatic. NECK: Supple and without jugular venous distention or thyroid enlargement. LUNGS: Clear to auscultation bilaterally. HEART: Regular. ABDOMEN: Soft and nontender and bowel sounds are normal. EXTREMITIES: Without cyanosis or clubbing. He had no peripheral edema. NEUROLOGICAL: He is awake, alert and at his baseline mentation. LABORATORY STUDIES: Today's lab show a white blood cell count of 9.6, hemoglobin 10.2 and hematocrit 31.9, platelet count 206. Sodium 142, potassium 3.9, CO2 23, BUN 41 and creatinine 1.58. PROBLEMS: 1. Acute kidney injury superimposed on chronic kidney disease slight improvement in kidney function is noticed. The patient has good urine output and electrolytes are stable. 2. Hypertension - blood pressure seems to be well controlled and no changes in antihypertensive medications are indicated. 3. Fungal urinary tract infection - This patient is currently on antifungal therapy. His urine still has some blood and cloudiness. His is not on any broad spectrum antibiotics at present. He will continue with Fluconazole 100 mg daily. 4. Anemia at present his anemia is stable and does not need any urgent intervention.
== END 2021-02-05 12:53 | disposition home or self-care (01) | DRG 552 ==
LOC: M PM&R 13:45
PROVIDERS: ADMIT Physical Medicine & Rehabilitation; ATTEND Physical Medicine & Rehabilitation
DX: M48.061 Spinal stenosis, lumbar region without neurogenic claudication (principal); Q61.2 Polycystic kidney, adult type; N30.00 Acute cystitis without hematuria; N17.9 Acute kidney failure, unspecified; N39.0 Urinary tract infection, site not specified; I12.9 Hypertensive chronic kidney disease with stage 1 through stage 4 chronic kidney disease, or unspecified chronic kidney disease; N18.30 Chronic kidney disease, stage 3 unspecified; M10.9 Gout, unspecified; C61 Malignant neoplasm of prostate; N32.0 Bladder-neck obstruction; R53.1 Weakness; Z74.1 Need for assistance with personal care; Z85.820 Personal history of malignant melanoma of skin; Z87.440 Personal history of urinary (tract) infections; Z79.82 Long term (current) use of aspirin; Z79.899 Other long term (current) drug therapy; Z88.5 Allergy status to narcotic agent; N28.1 Cyst of kidney, acquired; R31.9 Hematuria, unspecified

== ENCOUNTER → 2021-03-05 | Outpatient (REF) | payer MEDICARE, BC ==
[~2021-03-05] MED LIST changes: +ACET1TAB55 PO; +CEFT1INJ4 IV; +FLUC100T PO; +GABA-1171 PO; +HEPA500023 SC; +LEXA1TAB PO; +NYST10006 TOP; +RISATAB3 PO
[2021-03-05 17:54] LABS: APPEARANCE, URINE TURBID (CLEAR); BACTERIA, URINE AUTO 3+ (NEGATIVE); BILIRUBIN, URINE AUTO NEGATIVE (NEGATIVE); BLOOD, URINE BLOOD 2+ (NEGATIVE); COLOR, URINE YELLOW (YELLOW); GLUCOSE, URINE (UA) AUTO NEGATIVE (NEGATIVE); KETONE, URINE AUTO NEGATIVE (NEGATIVE); LEUKOCYTE ESTERASE, URINE AUTO 3+ (NEGATIVE); MUCUS, URINE SMALL (NEGATIVE); NITRITE, URINE AUTO NEGATIVE (NEGATIVE); PROTEIN, URINE AUTO 2+ mg/dL (NEGATIVE); RBC, URINE AUTO 29 /HPF (0-3); SPECIFIC GRAVITY URINE AUTO 1.008 (1.002-1.035); SQUAMOUS EPITHELIAL CELL UR AU 0 /HPF (0-6); UROBILINOGEN, URINE AUTO 0.2 mg/dL (0.0-2.0); WBC, URINE AUTO TNTC /HPF (0-3)
== END ==
LOC: M SMT 17:05
PROVIDERS: ATTEND Urology
DX: N40.1 Benign prostatic hyperplasia with lower urinary tract symptoms (principal)

== ENCOUNTER → 2021-03-16 | Outpatient (REF) | payer MEDICARE, BC | LOC: M LAB REF 17:16 | PROVIDERS: ATTEND Nurse Practitioner Family | DX: N39.0 Urinary tract infection, site not specified (principal) ==

== ENCOUNTER 2021-05-02 02:06 | Inpatient (IN) | payer MEDICARE, BC ==
[~2021-05-02] VITALS: Ht 177.8 cm; Wt 91.5 kg
[2021-05-02 02:33] LABS: BASO # 0.1 10^3/uL (0.0-0.2); BASO % 0.4 % (0.0-1.0); EOS % 0.3 % (0.0-3.0); HEMATOCRIT 38.9 % (42.0-52.0); HEMOGLOBIN 12.8 g/dl (13.5-17.5); LYMPH # 1.4 10^3/uL (1.5-5.0); LYMPH % 9.2 % (24.0-44.0); MEAN CORPUSCULAR HEMOGLOBIN 31.5 pg (27.0-33.0); MEAN CORPUSCULAR HGB CONC 32.9 g/dl (32.0-36.5); MEAN CORPUSCULAR VOLUME 95.8 fl (80.0-96.0); MONO # 0.7 10^3/uL (0.0-0.8); MONO % 4.3 % (2.0-8.0); NEUTROPHILS # 12.6 10^3/uL (1.5-8.5); NEUTROPHILS % 81.3 % (36.0-66.0); PLATELET COUNT, AUTOMATED 373 10^3/uL (150-450); RED BLOOD COUNT 4.06 10^6/uL (4.30-6.10); WHITE BLOOD COUNT 15.5 10^3/uL (4.0-10.0)
[2021-05-02 03:04] LABS: BLOOD UREA NITROGEN 63 MG/DL (7-18); CALCIUM LEVEL 8.1 MG/DL (8.8-10.2); CARBON DIOXIDE LEVEL 24 MEQ/L (21-32); CHLORIDE LEVEL 104 MEQ/L (98-107); CK-MB VALUE MASS 2.9 NG/ML (<3.6); CPK CREATINE PHOSPHOKINASE 21 U/L (39-308); CREATININE FOR GFR 2.49 MG/DL (0.70-1.30); GLOMERULAR FILTRATION RATE 26.5 (>35); GLUCOSE, FASTING 94 MG/DL (70-100); LIPASE 191 U/L (73-393); MAGNESIUM LEVEL 1.6 MG/DL (1.8-2.4); MB/CK RELATIVE INDEX 13.81 (< OR =4); NT-PRO BNP 633 PG/ML (<450); POTASSIUM SERUM 3.9 MEQ/L (3.5-5.1); SODIUM LEVEL 136 MEQ/L (136-145); TROPONIN I < 0.02 NG/ML (< 0.10)
--- NOTE | 2021-05-02 04:33 | REPVR ---
PROCEDURE INFORMATION: Exam: XR Chest Exam date and time: 05/02/2021 2:40 AM Age: 81 years old Clinical indication: Other: Chest pain TECHNIQUE: Imaging protocol: XR of the chest. Views: 1 view. COMPARISON: [facility] PORTABLE CHEST X-RAY 01/29/2021 10:16 PM FINDINGS: Lungs: Unremarkable. No consolidation. Pleural spaces: Unremarkable. No pleural effusion. No pneumothorax. Heart/Mediastinum: Unremarkable. No cardiomegaly. Bones/joints: Right acromioclavicular joint degenerative changes seen. Thoracic spine productive changes seen. IMPRESSION: No acute findings. Electronically signed by: Robert Topete On 05/02/2021 04:33:27 AM
[2021-05-02] MEDS ORDERED: MAALOX 30 ML SUSP *UDC PO PRN (08:10)
[2021-05-02] MEDS ORDERED: MOM 30ML SUSPENSION UDC PO PRN (08:10)
[2021-05-02] MEDS ORDERED: ACETAMINOPHEN TAB 650MG DOSE (2X325MG) PO PRN (08:10)
[2021-05-02] MEDS ORDERED: ASPI81TA26 PO (08:19)
[2021-05-02] MEDS ORDERED: POTA1TAB14 PO (08:19)
[2021-05-02] MEDS ORDERED: DILT120C78 PO (08:19)
[2021-05-02] MEDS ORDERED: ATOR1TAB21 PO (08:19)
[2021-05-02] MEDS ORDERED: HYDR-3490 PO (08:19)
[2021-05-02] MEDS ORDERED: ZYLO300T6 PO (08:19)
[2021-05-02] MEDS ORDERED: LEXA1TAB2 PO (08:19)
[2021-05-02] MEDS ORDERED: RAMI1CAP26 PO (08:19)
[2021-05-02] MEDS ORDERED: MAGNESIUM OXIDE 400MG TAB (MAG-OX) PO ONE (09:00)
[2021-05-02] MEDS: HEPARIN SOD (PORCINE) 5000UNITS/ML 1ML VIAL/SYRINGE SC SCH ×2 (10:07→23:09)
[2021-05-02] MEDS: DOCUSATE SODIUM 100MG CAPSULE PO SCH ×2 (10:08→21:00)
[2021-05-02 14:11] VITALS: BP 132/70
--- NOTE | 2021-05-02 14:31 | ECGEPIP ---
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
--- NOTE | 2021-05-02 14:32 | ECGEPIP ---
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
[2021-05-02] MEDS ORDERED: NYSTATIN 100,000 UNITS/GM TOPICAL PWD 15 GM TOP PRN (15:45)
--- NOTE | 2021-05-02 16:40 | HPEPDOC ---
[facility] Medical History & Physical Date of Admission May 02, 2021 Date of Service: May 02, 2021 History and Physical CHIEF COMPLAINT: Chest pain HISTORY OF PRESENT ILLNESS: 80-year-old male presents to emergency department with intermittent chest pain reproducible on palpation associated with exertion that is currently resolved requests to be admitted to rule out ACS. Troponins have been negative so far. Upon further questioning patient has a history of prostate cancer since December falls of Dr. Yanez urologist but has found this Maria to be very uncomfortable and is noncompliant despite recommendation to have a chronic Maria inserted it was removed and has not been reinserted since he's had multiple urinary tract infections according to his at bedside he struggles to pass urine although eventually he is successful but he has a strain a lot. He denies fevers or chills endorses some dysuria. Denies currently chest pain denies any shortness of breath. Refuses to be straight cathed. ED was unable to collect urine sample until eventually while on the medical floor he voided. Postvoid residual recorded by nurse was less than 100 mL was reported to be very foul- smelling. Patient was found to have leukocytosis most likely strain by his UTI antibiotics were started with levofloxacin. Urology Dr. San was consulted. PAST MEDICAL/SURGICAL HISTORY: Hypertension Hyperlipidemia Chronic kidney disease polycystic kidney disease Gout BPH History nephrolithiasis Prostate cancer diagnosed approximately 8 months ago with elevated PSA follows with urologist Dr. Yanez has not started therapy at this time according to his Tonsillectomy Appendectomy Back surgery Left arm melanoma resection 1994 SOCIAL HISTORY: Denies alcohol use Denies tobacco use currently quit smoking 20 years ago and was a smoker for approximately 20 years smoking about 1 pack per day Denies illicit drug use FAMILY HISTORY: Reviewed and none contributory to this admission ALLERGIES: Please see below. REVIEW OF SYSTEMS: 10 point review of systems complete all negative otherwise stated in HPI HOME MEDICATIONS: Please see below. PHYSICAL EXAMINATION: Constitutional: Awake and alert, in no apparent distress ENT: Sclera are clear. Mucosa is moist. Respiratory: Fair air entry bilaterally. No respiratory distress. No use of accessory muscles. Cardiovascular: RRR S1 and S2 are normal, no murmur Gastrointestinal: Abdomen is soft, non distended, non tender, BS present. Musculoskeletal: No lower extremity edema. Mental Status: A&O x3, normal affect Skin: Skin around the groin and buttocks appears irritated and erythematous LABORATORY DATA: See below. IMAGING: See chart MICROBIOLOGY: Please see below. ASSESSMENT/PLAN 81-year-old male history of prostate cancer presents with chest pain admitted to observation to rule out ACS, later found to have a UTI and intermittent urinary retention complicated by prostate cancer, BPH, and noncompliance with Maria. Admitted for further workup and management. # UTI: likely from chronic indwelling Maria, wasn't compliant with seeing urology to change out maria every month as instructed. UA positive. UCx pending. Start IV levofloxacin and adjust based on sensitivities. EKG qtc ok. Leukocytosis 15.5 on admission. Afebrile. # Prostate cancer / BPH: Follows up with Dr Yanez. Supposed to be on chronic maria but patient refusing it. Forcing himself to urinate with discomfort but able to void, post void scan 70cc. Refusing straight cath. Discussed case and consulted Dr San who recommended US renal to r/o hydro, flomax, treating UTI and following up with Dr Yanez in clinic since he appears to be able to empty his bladder adequately albeit uncomfortably. # Chest pain: Now resolved. Rule out ACS. Trops trended negative. EKG no STEMI. Fu with PCP for OP stress testing referral. # KEATON on Chronic kidney disease / polycystic kidney disease: Cr slightly higher than baseline. Likely related to his urinary retention and UTI. Fu renal US. Treat UTI. monitor renal function. # Hypertension: Continue home meds. Monitor and titrate # Hyperlipidemia: continue home statin # Gout: continue home meds # DVT prophylaxis: Heparin A Yousef Hospitalist Vital Signs Vital Signs Date Time Temp Pulse Resp B/P (MAP) Pulse Ox O2 Delivery O2 Flow Rate FiO2 05/02/21 14:11 97.7 63 18 132/70 (90) 97 Room Air Laboratory Data Labs 24H Laboratory Tests 2 05/02/21 02:23: Immature Granulocyte % (Auto) 4.5H, Neutrophils (%) (Auto) 81.3H, Lymphocytes (%) (Auto) 9.2L, Monocytes (%) (Auto) 4.3, Eosinophils (%) (Auto) 0.3, Basophils (%) (Auto) 0.4, Neutrophils # (Auto) 12.6H, Lymphocytes # (Auto) 1.4L, Monocytes # (Auto) 0.7, Eosinophils # (Auto) 0.0, Basophils # (Auto) 0.1, Nucleated Red Blood Cells % (auto) 0.0, Anion Gap 8, Glomerular Filtration Rate 26.5L, Calcium Level 8.1L, Magnesium Level 1.6L, Total Creatine Kinase 21L, Creatine Kinase MB 2.9, Creatine Kinase MB Relative Index 13.81H, Troponin I < 0.02, XR-Now-I-Type Natriuretic Peptide 633H, Lipase 191 05/02/21 02:26: POC Troponin I (Misc) 0.02 05/02/21 05:50: Troponin I < 0.02 05/02/21 08:41: Coronavirus (COVID-19)(PCR) NEGATIVE 05/02/21 10:49: Troponin I < 0.02 05/02/21 14:54: Urine Color YELLOW, Urine Appearance TURBIDH, Urine pH 6.0, Urine Specific [place] 1.009, Urine Protein 1+H, Urine Glucose (UA) NEGATIVE, Urine Ketones NEGATIVE, Urine Blood 1+H, Urine Nitrite NEGATIVE, Urine Bilirubin NEGATIVE, Urine Urobilinogen 0.2, Urine Leukocyte Esterase 3+H, Urine WBC (Auto) TNTCH, Urine RBC (Auto) 58H, Urine Hyaline Casts (Auto) 0, Urine Bacteria (Auto) 1+H, Urine Squamous Epithelial Cells 0, Urine Sperm (Auto) CBC/BMP Laboratory Tests 05/02/21 02:23 Microbiology Microbiology 05/02/21 Urine Culture, Received Pending Home Medications Scheduled Allopurinol (Zyloprim) 300 Mg Tablet, 300 MG PO DAILY Aspirin (Aspirin EC) 81 Mg Tablet.dr, 81 MG PO DAILY Atorvastatin Calcium (Atorvastatin Calcium) 20 Mg Tablet, 20 MG PO QHS Diltiazem HCl (Diltiazem 24Hr ER) 120 Mg Cap.er.24h, 120 MG PO DAILY Escitalopram Oxalate (Lexapro) 20 Mg Tablet, 20 MG PO DAILY Hydrochlorothiazide (Hydrochlorothiazide) 25 Mg Tablet, 25 MG PO DAILY Potassium Chloride (Potassium Chloride) 20 Meq Tablet.er, 20 MEQ PO DAILY Ramipril (Ramipril) 10 Mg Capsule, 10 MG PO DAILY Allergies Coded Allergies: codeine (Verified Adverse Reaction, Intermediate, altered , 11/10/20) A-FIB/CHADSVASC A-FIB History Current/History of A-Fib/PAF?: No YOUSEF,HIPOLITO Quesada MD May 02, 2021 16:40
[2021-05-02] MEDS ORDERED: LevoFLOXacin IV 750 MG in IV 1 EA IV SCH (17:00)
[2021-05-02] MEDS: ASPIRIN 81MG ENTERIC TABLET PO SCH (17:04)
[2021-05-02] MEDS: ramipriL 5 MG CAP PO SCH (17:05)
[2021-05-02] MEDS: ESCITALOPRAM OXALATE 10 MG TAB (LEXAPRO) PO SCH (17:06)
--- NOTE | 2021-05-02 17:11 | SMCUROLCON ---
Urology Consultation General Date of Consultation 05/02/21 Reason For Consultation This patient is seen for Chest Pain. History of Present Illness The patient is a 81-year-old male currently admitted to the hospitalist service for chest pain. Urology is consulted for a h/o prostate ca and possible urinary retention. Records do show pt has h/o retrograde pyelogram and right stent placement some years back. 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 They report that pt followed closely by Dr. Yanez over the past year and had an indwelling maria catheter for much of that time although he had great difficulty with it and could not do CIC. Pt reports that he has had the maria out for about 3 months now. He does report that he has obstructive voiding symptoms but that he is able to void and that he has no pain or dysuria doing so. They have done bladder scans here since admission which reportedly demonstrated about 90 mL in bladder. His U/A shows pyuria and microscopic hematuria but no nitrites. Medications Current Medications Current Medications Medications (Trade) Dose Ordered Sig/Anthony Route PRN Reason Start Time Stop Time Status Last Admin Dose Admin Acetaminophen (Tylenol Tab) 650 mg Q4H PRN PO MILD PAIN or TEMP > 101 05/02/21 08:10 Al Hydrox/Mg Hydrox/Simethicone (Mylanta) 30 ml DAILY PRN PO DYSPEPSIA 05/02/21 08:10 Allopurinol (Zyloprim) 300 mg DAILY PO 05/03/21 09:00 Aspirin (Ecotrin) 81 mg DAILY PO 05/02/21 09:00 Atorvastatin Calcium (Lipitor) 20 mg QHS PO 05/02/21 21:00 Diltiazem HCl (Cardizem Cd) 120 mg DAILY PO 05/02/21 09:00 Docusate Sodium (Colace) 100 mg BID PO 05/02/21 09:00 05/02/21 10:08 Escitalopram Oxalate (Lexapro) 20 mg DAILY PO 05/02/21 09:00 Heparin Sodium (Porcine) (Heparin) 5,000 units Q12H SC 05/02/21 09:00 05/02/21 10:07 Home Med (Med Rec Complete!) ASDIRECTED XX 05/02/21 08:25 05/02/21 08:27 DC Hydrochlorothiazide (Hydrodiuril Oral Susp) 25 mg DAILY PO 05/03/21 09:00 UNV Levofloxacin 750 mg/IV Miscellaneous Supplies 150 ml @ 100 mls/hr Q48H IV 05/02/21 17:00 Magnesium Hydroxide (Milk Of Magnesia) 30 ml DAILY PRN PO CONSTIPATION 05/02/21 08:10 Nystatin (Mycostatin Powder, Nystop) Apply to groin BIDP PRN TOP REDNESS/IRRITATION 05/02/21 15:45 Potassium Chloride (Micro-K Extencaps) 20 meq DAILY PO 05/03/21 09:00 Ramipril (Altace) 10 mg DAILY PO 05/02/21 09:00 Allergies Allergies: Coded Allergies: codeine (Verified Adverse Reaction, Intermediate, altered , 11/10/20) Vital Signs/I&O Vital Signs Date Time Temp Pulse Resp B/P (MAP) Pulse Ox O2 Delivery O2 Flow Rate FiO2 05/02/21 14:11 97.7 63 18 132/70 (90) 97 Room Air Laboratory Data 24H Labs Laboratory Tests 2 05/02/21 02:23: Immature Granulocyte % (Auto) 4.5H, Neutrophils (%) (Auto) 81.3H, Lymphocytes (%) (Auto) 9.2L, Monocytes (%) (Auto) 4.3, Eosinophils (%) (Auto) 0.3, Basophils (%) (Auto) 0.4, Neutrophils # (Auto) 12.6H, Lymphocytes # (Auto) 1.4L, Monocytes # (Auto) 0.7, Eosinophils # (Auto) 0.0, Basophils # (Auto) 0.1, Nucleated Red Blood Cells % (auto) 0.0, Anion Gap 8, Glomerular Filtration Rate 26.5L, Calcium Level 8.1L, Magnesium Level 1.6L, Total Creatine Kinase 21L, Creatine Kinase MB 2.9, Creatine Kinase MB Relative Index 13.81H, Troponin I < 0.02, EM-Rss-N-Type Natriuretic Peptide 633H, Lipase 191 05/02/21 02:26: POC Troponin I (Misc) 0.02 05/02/21 05:50: Troponin I < 0.02 05/02/21 08:41: Coronavirus (COVID-19)(PCR) NEGATIVE 05/02/21 10:49: Troponin I < 0.02 05/02/21 14:54: Urine Color YELLOW, Urine Appearance TURBIDH, Urine pH 6.0, Urine Specific [place] 1.009, Urine Protein 1+H, Urine Glucose (UA) NEGATIVE, Urine Ketones NEGATIVE, Urine Blood 1+H, Urine Nitrite NEGATIVE, Urine Bilirubin NEGATIVE, Urine Urobilinogen 0.2, Urine Leukocyte Esterase 3+H, Urine WBC (Auto) TNTCH, Urine RBC (Auto) 58H, Urine Hyaline Casts (Auto) 0, Urine Bacteria (Auto) 1+H, Urine Squamous Epithelial Cells 0, Urine Sperm (Auto) CBC/BMP Laboratory Tests 05/02/21 02:23 Microbiology Microbiology 05/02/21 Urine Culture, Received Pending Assessment h/o prostate cancer for which he is followed by Dr. Yanez as an outpatient. Does not require active inpatient management at this time. h/o urinary retention but appears that is emptying bladder sufficiently at present. No clear indication for urine catheterization at present especially since pt essentially refusing anyway. -Recommend empiric antibiotics for possible UTI and f/u urine culture. -Recommend initiate alpha-katlyn medication. -Pt should f/u with Dr. Yanez as an outpatient. NATALIA SUMMERS MD May 02, 2021 17:11
[2021-05-02] MEDS ORDERED: TAMSULOSIN 0.4 MG CAP PO ONE (18:00)
--- NOTE | 2021-05-02 18:04 | REP ---
INDICATION: Rule out hydronephrosis. COMPARISON: Prior ultrasound examinations 01/31/2021 and 01/25/[address] examinations 01/31/2021, 01/25/2021, 11/10/2020, and 04/15/2018 TECHNIQUE: Bilateral renal ultrasound FINDINGS: Once again, there are multiple bilateral renal cysts of various sizes and shapes. These are all unchanged. The right kidney measures 13 x 7 x 7 x 6.1 cm and the left kidney measures 15 x 6.9 x 6.1 cm. There is debris in the urinary bladder which is seen the layer. This phenomenon has not changed significantly compared to the prior exam. IMPRESSION: No significant change from prior exams. Known renal cysts. If acute infectious or obstructive etiology is of clinical concern then I would recommend pre and postcontrast enhanced CT of the abdomen and pelvis. <Electronically signed by Hussein Blount > 05/02/21 1800
[2021-05-02 20:30] VITALS: BP 86/56
[2021-05-02 20:35] VITALS: BP 86/56
[2021-05-02 20:36] VITALS: BP 90/46
[2021-05-02] MEDS ORDERED: ACETAMINOPHEN *IV* 1,000 MG in IV 1 EA IV ONE (20:45)
[2021-05-02 20:49] VITALS: BP 94/48
[2021-05-02] MEDS ORDERED: NS 500 ML IV ONE (20:50)
--- NOTE | 2021-05-02 20:50 | IPNPDOC ---
Text Note Date of Service The patient was seen on 05/02/21. NOTE Rapid assessment was called at 2034 Per dw the patient's RN Elizabet the pt went to the bathroom while still standing he put his hands on the wall and started having a BM; she tried to redirect him to the toilet but he refused to move and suddenly had a fall and hit his head. A t the initial time of assessment he was lying on the bathroom floor, was alert and c/o ULRICH & dizziness. Initial vitals: BP 86/56 / O2 sats 95% w O2 / serum glucose 115 / RR 20 / T 96.1 PE: alert but confused;able to move his head and neck w/o pain. He is A&O to person and place but not date (which is a change). EKG showed artifacts but he appeared to be in NSR w a rate of 70there were no acute ST or T wave changes #fall vasovagal vs due to arrhythmia Plan:f/u CBC, CMP, Trop, Mag, VBG, lactic acid / 500ml bolus then continue at 70ml/H / CT head and neck / acetaminophen for ULRICH / add neurochecks and fall precautions VS,Fishbone, I+O VS, Fishbone, I+O Laboratory Tests 05/02/21 02:23 Vital Signs Date Time Temp Pulse Resp B/P (MAP) Pulse Ox O2 Delivery O2 Flow Rate FiO2 05/02/21 17:05 135/70 05/02/21 17:05 73 05/02/21 14:11 97.7 18 97 Room Air SHELL DOAN MD May 02, 2021 20:50
[2021-05-02 21:21] LABS: VENOUS BASE EXCESS -3.1 (-2.0-2.0); VENOUS HCO3 22.5 MEQ/L (23.0-27.0); VENOUS O2 SATURATION 59.1 % (60.0-80.0); VENOUS PARTIAL PRESSURE CO2 42.2 mmHg (38.0-50.0); VENOUS PARTIAL PRESSURE O2 33.8 mmHg (30.0-50.0); VENOUS PH 7.345 UNITS (7.330-7.430); VENOUS STANDARD HCO3 21.1 MEQ/L; VENOUS TOTAL CO2 23.8 MEQ/L (24.0-28.0)
[2021-05-02 21:29] LABS: BASO # 0.1 10^3/uL (0.0-0.2); BASO % 0.4 % (0.0-1.0); EOS # 0.1 10^3/uL (0.0-0.5); EOS % 0.3 % (0.0-3.0); HEMATOCRIT 41.4 % (42.0-52.0); HEMOGLOBIN 13.4 g/dl (13.5-17.5); LYMPH # 1.8 10^3/uL (1.5-5.0); MEAN CORPUSCULAR HGB CONC 32.4 g/dl (32.0-36.5); MEAN CORPUSCULAR VOLUME 98.8 fl (80.0-96.0); MONO # 0.9 10^3/uL (0.0-0.8); MONO % 4.8 % (2.0-8.0); NEUTROPHILS # 14.3 10^3/uL (1.5-8.5); NEUTROPHILS % 81.3 % (36.0-66.0); PLATELET COUNT, AUTOMATED 419 10^3/uL (150-450); RED BLOOD COUNT 4.19 10^6/uL (4.30-6.10); WHITE BLOOD COUNT 17.6 10^3/uL (4.0-10.0)
[2021-05-02] MEDS: ATORVASTATIN 20 MG TAB PO SCH (21:48)
[2021-05-02] MEDS: NS 1,000 ML IV SCH (21:48)
[2021-05-02 21:53] LABS: ALBUMIN 2.3 GM/DL (3.2-5.2); ALT/SGPT 35 U/L (12-78); BILIRUBIN,TOTAL 0.4 MG/DL (0.2-1.0); BLOOD UREA NITROGEN 58 MG/DL (7-18); CALCIUM LEVEL 8.2 MG/DL (8.8-10.2); CARBON DIOXIDE LEVEL 23 MEQ/L (21-32); CHLORIDE LEVEL 102 MEQ/L (98-107); GLOMERULAR FILTRATION RATE 26.4 (>35); GLUCOSE, FASTING 111 MG/DL (70-100); MAGNESIUM LEVEL 1.9 MG/DL (1.8-2.4); POTASSIUM SERUM 4.1 MEQ/L (3.5-5.1); SODIUM LEVEL 138 MEQ/L (136-145); TOTAL PROTEIN 6.7 GM/DL (6.4-8.2); TROPONIN I < 0.02 NG/ML (< 0.10)
[2021-05-02 22:00] VITALS: BP_SYST 137; BP_SYST 90; BP_DIAS 52; BP_DIAS 62
--- NOTE | 2021-05-02 22:29 | REPVR ---
PROCEDURE INFORMATION: Exam: CT Head Without Contrast Exam date and time: 05/02/2021 9:19 PM Age: 81 years old Clinical indication: Injury or trauma; Fall; Blunt trauma (contusions or hematomas); Additional info: Fall resulting in head trauma TECHNIQUE: Imaging protocol: Computed tomography of the head without contrast. Axial and coronal reformatted images were created and reviewed. Radiation optimization: All CT scans at this facility use at least one of these dose optimization techniques: automated exposure control; mA and/or kV adjustment per patient size (includes targeted exams where dose is matched to clinical indication); or iterative reconstruction. COMPARISON: CT Head without contrast 01/25/2021 2:04 PM FINDINGS: Brain: Patchy areas of hypoattenuation in the periventricular and subcortical white matter, consistent with chronic small vessel ischemic disease. No CT evidence of acute intracranial hemorrhage or acute territorial infarction. No significant mass effect or midline shift. Basal cisterns patent. Cerebral ventricles: Prominence of the cortical sulci, cisterns and ventricular system, consistent with cerebral and cerebellar volume loss. Paranasal sinuses: Unremarkable. No fluid levels. Mastoid air cells: Grossly unremarkable. Vasculature: Calcific atherosclerotic disease in the cavernous internal carotid arteries, as well as the vertebro-basilar system. Bones/joints: No acute osseous abnormality. Soft tissues: Grossly unremarkable. IMPRESSION: 1. No CT evidence of acute intracranial pathology. 2. Additional findings, as above. Electronically signed by: Stephen Gross On 05/02/2021 22:29:32 PM
--- NOTE | 2021-05-02 22:35 | REPVR ---
PROCEDURE INFORMATION: Exam: CT Cervical Spine Without Contrast Exam date and time: 05/02/2021 9:19 PM Age: 81 years old Clinical indication: Injury or trauma; Fall; Blunt trauma; Additional info: Fall resulting in head trauma TECHNIQUE: Imaging protocol: Computed tomography images of the cervical spine without contrast. Axial, coronal and sagittal reformatted images were created and reviewed. Radiation optimization: All CT scans at this facility use at least one of these dose optimization techniques: automated exposure control; mA and/or kV adjustment per patient size (includes targeted exams where dose is matched to clinical indication); or iterative reconstruction. COMPARISON: CT Head without contrast 01/25/2021 2:04 PM FINDINGS: Bones/joints: Osteopenia. Slight reversal of the normal cervical lordosis. No CT evidence of acute fracture, dislocation or subluxation. Mild anterolisthesis of C2 on C3, C3 on C4 and C7 on T1. Alignment otherwise anatomic. Vertebral body heights maintained. Discs/Spinal canal/Neural foramina: Multilevel degenerative changes, characterized by disc space narrowing, osteophytosis and uncovertebral and facet joint hypertrophy. Mild multilevel spinal canal and neural foraminal narrowing. Lungs: Grossly unremarkable. Soft tissues: Grossly unremarkable. IMPRESSION: 1. No CT evidence of acute cervical spine traumatic injury. 2. Additional findings, as above. Electronically signed by: Stephen Gross On 05/02/2021 22:34:44 PM
[2021-05-02] MEDS ORDERED: NS 1,000 ML IV SCH (22:40)
[2021-05-03] VITALS (25 sets, daily range): BP systolic 76–119; BP diastolic 38–67
[2021-05-03] MEDS ORDERED: SODIUM CHLORIDE 0.9% 1000ML IV ONE (01:00)
[2021-05-03] MEDS ORDERED: NOREPINEPHRINE BITARTRATE 8 MG in D5W 500 ML IV SCH (02:20)
[2021-05-03] MEDS ORDERED: NOREPINEPHRINE BITARTRATE 8 MG in D5W 492 ML IV SCH (02:50)
[2021-05-03 04:43] LABS: HEMATOCRIT 34.9 % (42.0-52.0); HEMOGLOBIN 11.3 g/dl (13.5-17.5); MEAN CORPUSCULAR HEMOGLOBIN 31.6 pg (27.0-33.0); MEAN CORPUSCULAR HGB CONC 32.4 g/dl (32.0-36.5); MEAN CORPUSCULAR VOLUME 97.5 fl (80.0-96.0); PLATELET COUNT, AUTOMATED 303 10^3/uL (150-450); RED BLOOD COUNT 3.58 10^6/uL (4.30-6.10); WHITE BLOOD COUNT 14.5 10^3/uL (4.0-10.0)
[2021-05-03 05:08] LABS: CALCIUM LEVEL 7.3 MG/DL (8.8-10.2); CREATININE FOR GFR 2.17 MG/DL (0.70-1.30); GLOMERULAR FILTRATION RATE 31.1 (>35); MAGNESIUM LEVEL 1.9 MG/DL (1.8-2.4); POTASSIUM SERUM 3.9 MEQ/L (3.5-5.1)
--- NOTE | 2021-05-03 07:44 | IPNPDOC ---
Text Note Date of Service The patient was seen on 05/03/21. NOTE Subjective: Patient seen and examined this morning at bedside. Overnight she was reported he had a fall Speck to be vasovagal versus due to arrhythmia. This morning he feels better. He doesn't feel dizzy or lightheaded. Denies any chest pain or shortness of breath. He was noted overnight his blood pressure was low at 86 of 6. He was given fluid boluses which initially did not respond to and he was moved to the ICU for possible pressor support. Suspected to be likely early sepsis from UTI. His blood pressure did improve 110/56 this morning without pressors. Unfortunately his urine culture appears to be contaminated and a repeat urinalysis will be sent however will likely be less reliable now after abx. Objective: Constitutional: Awake and alert, in no apparent distress ENT: Sclera are clear. Mucosa is moist. Respiratory: Fair air entry bilaterally. No respiratory distress. No use of accessory muscles. Cardiovascular: RRR S1 and S2 are normal, no murmur Gastrointestinal: Abdomen is soft, non distended, non tender, BS present. Musculoskeletal: No lower extremity edema. Mental Status: A&O x3, normal affect Skin: Skin around the groin and buttocks appears irritated and erythematous. Maria now in place. Assessment/plan: 81-year-old male history of prostate cancer presents with chest pain admitted to observation to rule out ACS, later found to have a UTI and intermittent urinary retention complicated by prostate cancer, BPH, and noncompliance with Maria. Admitted for further workup and management. # Sepsis likely from UTI: likely from chronic indwelling Maria, wasn't compliant with seeing urology to change out maria every month as instructed. UA positive. UCx contaminated, ordered repeat. IV levofloxacin was stopped overnight. I placed him on IV Vanc and Zosyn due to early sepsis with hypotension overnight. Adjust based on sensitivities. EKG qtc ok. Leukocytosis 15.5 on admission about the same. Afebrile. IVFs. BP better. # Prostate cancer / BPH: Follows up with Dr Yanez. Supposed to be on chronic maria but patient refusing it. Forcing himself to urinate with discomfort but able to void, post void scan 70cc. Refusing straight cath initially. Discussed case and consulted Dr San who recommended US renal to r/o hydro, flomax, treat ing UTI and following up with Dr Yanez in clinic since he appears to be able to empty his bladder adequately albeit uncomfortably. Overnight maria was placed and he's tolerating it for now. # Chest pain: Now resolved. Rule out ACS. Trops trended negative. EKG no STEMI. Fu with PCP for OP stress testing referral. # KEATON on Chronic kidney disease / polycystic kidney disease: Cr slightly higher than baseline. Likely related to his urinary retention and UTI. Fu renal US. Treat UTI. monitor renal function. # Hypertension: Continue home meds. Monitor and titrate # Hyperlipidemia: continue home statin # Gout: continue home meds # DVT prophylaxis: Heparin A Chasity Hospitalist VS,[place], I+O VS, Jean Pierrebone, I+O Laboratory Tests 05/02/21 21:03 05/03/21 04:31 Vital Signs Date Time Temp Pulse Resp B/P (MAP) Pulse Ox O2 Delivery O2 Flow Rate FiO2 05/03/21 06:00 53 111/57 (75) 98 Room Air 05/03/21 04:00 96.7 22 05/02/21 23:00 4.0 I&O- Last 24 Hours up to 6 AM 05/03/21 06:00 Intake Total 3635 ml Output Total 975 ml Balance 2660 ml HIPOLITO PEACOCK MD May 03, 2021 07:44
[2021-05-03] MEDS: ESCITALOPRAM OXALATE 10 MG TAB (LEXAPRO) PO SCH (08:52)
[2021-05-03] MEDS: ASPIRIN 81MG ENTERIC TABLET PO SCH (08:52)
[2021-05-03] MEDS: allopurinoL 300 MG TAB PO SCH (08:53)
[2021-05-03] MEDS: TAMSULOSIN 0.4 MG CAP PO SCH (08:53)
[2021-05-03] MEDS: POTASSIUM CHLORIDE 10 MEQ SR TABLET PO SCH (08:53)
[2021-05-03] MEDS: DOCUSATE SODIUM 100MG CAPSULE PO SCH ×2 (08:53→21:24)
[2021-05-03] MEDS: HEPARIN SOD (PORCINE) 5000UNITS/ML 1ML VIAL/SYRINGE SC SCH ×2 (08:54→21:24)
[2021-05-03] MEDS: ramipriL 5 MG CAP PO SCH (08:54)
[2021-05-03] MEDS: NS 1,000 ML IV SCH (12:15)
[2021-05-03] MEDS ORDERED: VANCOMYCIN HCL 1,000 MG, VIAL MATE ADAPTER 1 EACH in NS 250 ML IV SCH (13:25)
[2021-05-03] MEDS ORDERED: VANCOMYCIN HCL 500 MG in D5W MINI-BAG PLUS 100 ML IV ONE ×2 (14:00→15:00)
[2021-05-03] MEDS: PIPERACILLIN/TAZOBACTAM SOD 3.375 GM in D5W MINI-BAG PLUS 50 ML IV SCH ×2 (15:36→21:24)
[2021-05-03 15:37] LABS: APPEARANCE, URINE TURBID (CLEAR); BACTERIA, URINE AUTO 1+ (NEGATIVE); BILIRUBIN, URINE AUTO NEGATIVE (NEGATIVE); BLOOD, URINE BLOOD 3+ (NEGATIVE); COLOR, URINE YELLOW (YELLOW); GLUCOSE, URINE (UA) AUTO NEGATIVE (NEGATIVE); KETONE, URINE AUTO NEGATIVE (NEGATIVE); LEUKOCYTE ESTERASE, URINE AUTO 3+ (NEGATIVE); NITRITE, URINE AUTO NEGATIVE (NEGATIVE); PROTEIN, URINE AUTO 1+ mg/dL (NEGATIVE); RBC, URINE AUTO 141 /HPF (0-3); SPECIFIC GRAVITY URINE AUTO 1.009 (1.002-1.035); SQUAMOUS EPITHELIAL CELL UR AU 0 /HPF (0-6); UROBILINOGEN, URINE AUTO 0.2 mg/dL (0.0-2.0); WBC, URINE AUTO TNTC /HPF (0-3)
[2021-05-03] MEDS ORDERED: VANCOMYCIN HCL 1,000 MG, VIAL MATE ADAPTER 1 EACH in NS 250 ML IV ONE (16:00)
[2021-05-03] MEDS: ATORVASTATIN 20 MG TAB PO SCH (21:24)
--- NOTE | 2021-05-03 23:08 | ECGEPIP ---
[facility] Test Date: 2021-05-02 Pat Name: JALEN JAVIER Department: Room: [place] [address] Gender: Male [employer]: PINKY : 1940 Requested By: SHELL DOAN Order Number: [id number] Reading MD: Aurelio Pedersen Measurements Intervals [place] Rate: 71 P: 16 SD: 122 QRS: -67 QRSD: 86 T: 38 QT: 396 QTc: 430 Interpretive Statements Normal sinus rhythm Low limb lead voltages, excessive baseline noise, indeterminate QRS axis. Nonspecific T wave abnormality. Electronically Signed on 05-03-2021 23:08:26 EDT by Aurelio Pedersen
[2021-05-04] VITALS (7 sets, daily range): BP systolic 92–142; BP diastolic 54–63
[2021-05-04] MEDS: PIPERACILLIN/TAZOBACTAM SOD 3.375 GM in D5W MINI-BAG PLUS 50 ML IV SCH ×4 (01:56→20:23)
[2021-05-04] MEDS: NS 1,000 ML IV SCH (01:56)
[2021-05-04 06:59] LABS: BASO % 0.2 % (0.0-1.0); EOS # 0.1 10^3/uL (0.0-0.5); EOS % 1.2 % (0.0-3.0); HEMATOCRIT 33.4 % (42.0-52.0); HEMOGLOBIN 10.7 g/dl (13.5-17.5); LYMPH # 1.3 10^3/uL (1.5-5.0); LYMPH % 11.5 % (24.0-44.0); MEAN CORPUSCULAR HEMOGLOBIN 31.6 pg (27.0-33.0); MEAN CORPUSCULAR VOLUME 98.5 fl (80.0-96.0); MONO # 0.5 10^3/uL (0.0-0.8); MONO % 4.3 % (2.0-8.0); NEUTROPHILS # 8.8 10^3/uL (1.5-8.5); NEUTROPHILS % 78.4 % (36.0-66.0); PLATELET COUNT, AUTOMATED 280 10^3/uL (150-450); RED BLOOD COUNT 3.39 10^6/uL (4.30-6.10); WHITE BLOOD COUNT 11.3 10^3/uL (4.0-10.0)
[2021-05-04 07:22] LABS: CALCIUM LEVEL 7.9 MG/DL (8.8-10.2); CREATININE FOR GFR 1.57 MG/DL (0.70-1.30); GLOMERULAR FILTRATION RATE 45.1 (>35); POTASSIUM SERUM 3.5 MEQ/L (3.5-5.1)
[2021-05-04] MEDS ORDERED: RIZATRIPTAN BENZOATE 10 MG TAB PO ONE (08:00)
[2021-05-04] MEDS ORDERED: METOCLOPRAMIDE INJ 10MG/2ML VIAL (J2765 PER 1) IV ONE (08:00)
[2021-05-04] MEDS: DOCUSATE SODIUM 100MG CAPSULE PO SCH ×2 (09:00→20:22)
[2021-05-04] MEDS: ASPIRIN 81MG ENTERIC TABLET PO SCH (09:18)
[2021-05-04] MEDS: POTASSIUM CHLORIDE 10 MEQ SR TABLET PO SCH (09:18)
[2021-05-04] MEDS: HEPARIN SOD (PORCINE) 5000UNITS/ML 1ML VIAL/SYRINGE SC SCH ×2 (09:18→20:22)
[2021-05-04] MEDS: TAMSULOSIN 0.4 MG CAP PO SCH (09:18)
[2021-05-04] MEDS: ESCITALOPRAM OXALATE 10 MG TAB (LEXAPRO) PO SCH (09:19)
[2021-05-04] MEDS: allopurinoL 300 MG TAB PO SCH (09:19)
[2021-05-04] MEDS: MIDODRINE 5 MG TAB PO SCH ×3 (09:19→16:36)
[2021-05-04 09:45] LABS: VANCOMYCIN RANDOM 11.4 UG/ML
[2021-05-04] MEDS ORDERED: VANCOMYCIN HCL 1,000 MG, VIAL MATE ADAPTER 1 EACH in NS 250 ML IV SCH (10:00)
--- NOTE | 2021-05-04 12:42 | IPN ---
PROGRESS NOTE DATE: 05/04/2021 SUBJECTIVE: The patient was seen and examined, transferred to ICU yesterday due to low blood pressure but did not require vasopressors with mean arterial pressure maintained at 67-80. The patient has no new complaints this morning, no fevers, chills. Siddiqi catheter in place due to chronic urinary retention. No shortness of breath despite IV fluids. White count is decreased to 11 from peak white count of 17. Creatinine is 1.5 from creatinine of 2.17. Still on Vancomycin and Zosyn. Awaiting urine culture results. OBJECTIVE: VITAL SIGNS: Temperature 97.3, pulse 62, respiratory rate 14, blood pressure 92/54, 99% on room air. GENERAL: Generally awake, alert and oriented. Answering questions appropriately. No respiratory distress. No JVD or thyromegaly. Lungs are diminished but clear to auscultation, no wheezing, rales, or rhonchi. No use of respiratory accessory muscles. HEART: S1, S2, sinus rhythm. ABDOMEN: Soft, nontender, nondistended. Siddiqi catheter in place. [place] in color, blood-tinged. EXTREMITIES: No pitting edema. SKIN: Some erythema around the groin and buttocks. Laboratory data and imaging studies have been reviewed. ASSESSMENT AND PLAN: An 81-year-old male with a history of prostate cancer presented with complaints of chest pain, negative for acute coronary syndrome. Found to have a urinary tract infection and urine retention complicated by Siddiqi catheter, benign prostatic hypertrophy, noncompliant with Siddiqi with the Siddiqi being placed back with [id number] renal failure stage III. IMPRESSION: 1. Sepsis. 2. UTI. 3. Prostate cancer. 4. Benign prostatic hypertrophy. 5. Chest pain, acute coronary syndrome ruled out. 6. Acute kidney injury on chronic kidney disease stage III, status post IV fluids. 7. History of polycystic kidney disease. 8. Hypertension, currently with low blood pressure. 9. Hyperlipidemia. 10. Gout. PLAN: The patient has been medically stable on Vancomycin and Zosyn. No need for vasopressor therapy in the ICU status post IV fluids. The patient will be given midodrine. Continue with Zosyn and fluids can be restarted if the patient continues to have issues with low blood pressure, otherwise he is medically stable for med/surg transfer. He is currently being given antibiotics and awaiting urine cultures. [facility]
[2021-05-04] MEDS: ATORVASTATIN 20 MG TAB PO SCH (20:22)
--- NOTE | 2021-05-04 23:39 | ECHO ---
ECHOCARDIOGRAM DATE OF PROCEDURE: 05/03/2021 Age: 81 Gender: Male Height: 178 cm Weight: 84 kg REFERRING PHYSICIAN: Dr. Remy Gaspar INDICATION: Sepsis MEASUREMENTS: 2D Measurements: Intraventricular septum 1.25 cm Posterior wall 1.35 cm Left ventricle diastole 5.1 cm Aortic root 4.4 cm Left atrium 4.2 cm Proximal ascending aorta 4.0 cm Doppler Measurements: No aortic stenosis No aortic regurgitation LVOT velocity 115 cm/s Trace mitral regurgitation No mitral stenosis Mitral E velocity 58.3 cm/s Mitral A velocity 76.3 cm/s Mitral deceleration time 282 msec No tricuspid regurgitation No pulmonic regurgitation MITRAL ANNULAR TISSUE DOPPLER E prime septal 4.2 cm/s, E prime lateral 8.6 cm/s DESCRIPTION: Rhythm was sinus bradycardia. This was a moderately technically difficult echocardiogram. No pericardial effusion. This was a 2D, M-mode, color flow Doppler, and pulsed wave Doppler examination including mitral annular tissue Doppler. CONCLUSIONS: 1. Mild concentric left ventricular hypertrophy. Normal regional LV wall motion and wall thickening. Normal LV systolic function. LVEF 65% by visual estimate. Grade 1 LV diastolic dysfunction (impaired relaxation filling pattern). 2. Mild dilatation of the aortic root at the level of the sinus of Valsalva (4.4 cm) at the proximal ascending aorta (4.0 cm). 3. Moderate mitral annular calcification. Trace mitral regurgitation. No mitral stenosis. 4. Mild aortic valve sclerosis of a 3-cuspid aortic valve. No aortic regurgitation. 5. Mild left atrial dilatation. 6. No vegetations are seen. 7. Moderately technically difficult echocardiogram.
[2021-05-05] MEDS: PIPERACILLIN/TAZOBACTAM SOD 3.375 GM in D5W MINI-BAG PLUS 50 ML IV SCH ×2 (02:36→08:22)
[2021-05-05 06:00] VITALS: BP 108/63
[2021-05-05] MEDS ORDERED: LevoFLOXacin 750 MG TABLET PO SCH (06:00)
[2021-05-05] MEDS: POTASSIUM CHLORIDE 10 MEQ SR TABLET PO SCH (08:19)
[2021-05-05] MEDS: allopurinoL 300 MG TAB PO SCH (08:19)
[2021-05-05] MEDS: TAMSULOSIN 0.4 MG CAP PO SCH (08:19)
[2021-05-05] MEDS: MIDODRINE 5 MG TAB PO SCH ×2 (08:20→12:53)
[2021-05-05 08:21] VITALS: BP 104/54
[2021-05-05] MEDS: ESCITALOPRAM OXALATE 10 MG TAB (LEXAPRO) PO SCH (08:21)
[2021-05-05] MEDS: DOCUSATE SODIUM 100MG CAPSULE PO SCH (08:21)
[2021-05-05] MEDS: ASPIRIN 81MG ENTERIC TABLET PO SCH (08:21)
[2021-05-05] MEDS: HEPARIN SOD (PORCINE) 5000UNITS/ML 1ML VIAL/SYRINGE SC SCH (08:22)
[2021-05-05 09:54] LABS: BASO % 0.2 % (0.0-1.0); EOS # 0.1 10^3/uL (0.0-0.5); EOS % 0.9 % (0.0-3.0); HEMATOCRIT 36.4 % (42.0-52.0); HEMOGLOBIN 11.4 g/dl (13.5-17.5); LYMPH # 1.5 10^3/uL (1.5-5.0); LYMPH % 10.5 % (24.0-44.0); MEAN CORPUSCULAR HEMOGLOBIN 31.5 pg (27.0-33.0); MEAN CORPUSCULAR HGB CONC 31.3 g/dl (32.0-36.5); MEAN CORPUSCULAR VOLUME 100.6 fl (80.0-96.0); MONO # 0.6 10^3/uL (0.0-0.8); MONO % 4.4 % (2.0-8.0); NEUTROPHILS # 11.4 10^3/uL (1.5-8.5); NEUTROPHILS % 81.5 % (36.0-66.0); PLATELET COUNT, AUTOMATED 301 10^3/uL (150-450); RED BLOOD COUNT 3.62 10^6/uL (4.30-6.10)
[2021-05-05 10:24] LABS: C REACTIVE PROTEIN QUANTITATIV 3.12 MG/DL (0.00-0.30); CALCIUM LEVEL 7.9 MG/DL (8.8-10.2); CREATININE FOR GFR 1.66 MG/DL (0.70-1.30); GLOMERULAR FILTRATION RATE 42.3 (>35); POTASSIUM SERUM 3.8 MEQ/L (3.5-5.1)
[2021-05-05 10:34] LABS: ERYTHROCYTE SEDIMENTATION RATE 66 mm/hr (0-20)
[2021-05-05] MEDS ORDERED: LEVO750T13 PO (10:34)
[2021-05-05] MEDS ORDERED: MIDO5TA PO (10:34)
[2021-05-05] MEDS ORDERED: FLOM0.4C39 PO (10:34)
--- NOTE | 2021-05-05 12:08 | DSES ---
DISCHARGE SUMMARY DATE OF ADMISSION: 05/02/2021 DATE OF DISCHARGE: 05/05/2021 CONSULTANTS DURING THIS ADMISSION: 1. Urology consultation, Dr. Jhonny San PRIMARY DISCHARGE DIAGNOSIS: 1. Chest pain, [place] ruled out. 2. History of prostate cancer with chronic urine retention requiring Siddiqi catheter placement. 3. Urinary tract infection in the setting of chronic Siddiqi catheter and prostate cancer. 4. Acute on chronic kidney failure. 5. History of renal cysts. 6. Sepsis secondary to urinary tract infection, complicated. 7. Hypotension. DISCHARGE MEDICATIONS: 1. Levaquin 750 q. 48 hours. 2. Midodrine 10 mg. 3. Flomax 0.8 mg. 4. Allopurinol 300 daily. 5. Aspirin 81 daily. 6. Lipitor 20 daily. 7. Lexapro 20 daily. HOSPITAL COURSE: This is an 81-year-old male with a history of prostate cancer, hypertension, hyperlipidemia, polycystic kidney disease with chronic kidney disease Stage III, gout, BPH, nephrolithiasis, tonsillectomy, appendectomy, who presented to the Emergency Room with complaints of chest pain associated with exertion and reproducible on palpation. Cardiac markers were negative. Patient was noted to have acute on chronic renal failure with a creatinine increased to 2.49 on admission. Renal ultrasound showed no hydronephrosis, Siddiqi catheter was placed, IV fluids given with creatinine improving back down 1.66 and 1.57. Patient's MURPHY inhibitor and diuretics were held. Patient had an episode of low blood pressure and transferred to ICU for severe sepsis. His Ramipril and diuretic were held. He was fluid resuscitated with response to 90/38 blood pressure, patient was given Midodrine 10 mg t.i.d. with increasing mean arterial pressure of 74 to 89. Cardizem was held. Urine culture had no growth. Blood culture had no growth. He was empirically placed on intravenous Zosyn. White count was elevated and peaked at 17.6 on 05/02/2021 and decreased down to 14. Review of previous urine culture showed history of E. coli sensitive to Levaquin. He was transitioned to Levaquin, chest x-ray to evaluate leukocytosis showed no acute findings. Patient remained debilitated and is transferred to acute rehab unit. PHYSICAL EXAMINATION ON DISCHARGE: VITAL SIGNS: Temperature 98.6, pulse 65, respiratory rate 18, blood pressure 104/54, 97% on room air. GENERAL: Awake, alert and oriented to person and time. No pallor. No icterus. No use of respiratory accessory muscles. LUNGS: Clear to auscultation. No wheezes, rales or rhonchi. HEART: S1 and S2, sinus rhythm. ABDOMEN: Soft, nontender and nondistended. Positive bowel sounds. Siddiqi catheter noted. EXTREMITIES: No cyanosis, clubbing or pitting edema. LABORATORY DATA/MICROBIOLOGY AND IMAGING STUDIES: Please see chart. TIME SPENT ON DISCHARGE: 30 minutes
[2021-05-05 14:00] VITALS: BP 106/58
[2021-05-06] MEDS ORDERED: KLOR10TA76 PO (15:59)
[2021-05-06] MEDS ORDERED: LEVO750T13 PO (15:59)
[2021-05-06] MEDS ORDERED: MIDO5TA PO (15:59)
== END 2021-05-05 15:03 | disposition home or self-care (01) | DRG 872 ==
LOC: M ED 02:06 → M ED INP 02:07 → ENRESERV 13:10 → M MSPAV 13:55 → OBSVTOIN 17:17 → M ICU 05-03 02:50 → M MSPAV 05-03 02:50 → M ICU 05-04 23:12 → UNDODISOB 05-05 15:03
PROVIDERS: ADMIT Family Medicine; ATTEND Family Medicine
DX: A41.9 Sepsis, unspecified organism (principal); N39.0 Urinary tract infection, site not specified; N17.9 Acute kidney failure, unspecified; Q61.2 Polycystic kidney, adult type; R07.89 Other chest pain; Z85.46 Personal history of malignant neoplasm of prostate; N18.30 Chronic kidney disease, stage 3 unspecified; Z79.82 Long term (current) use of aspirin; I12.9 Hypertensive chronic kidney disease with stage 1 through stage 4 chronic kidney disease, or unspecified chronic kidney disease; M10.9 Gout, unspecified; Z88.5 Allergy status to narcotic agent; Z79.899 Other long term (current) drug therapy; Z87.891 Personal history of nicotine dependence; E78.5 Hyperlipidemia, unspecified; N40.0 Benign prostatic hyperplasia without lower urinary tract symptoms

== ENCOUNTER 2021-05-05 14:32 | Inpatient (IN) | payer MEDICARE, BC ==
[~2021-05-05] VITALS: Ht 180.3 cm; Wt 87.0 kg
[~2021-05-05 14:32] MED LIST changes: +ASPI81TA26 PO; +DILT120C78 PO; +LEVO750T13 PO; +LEXA1TAB2 PO; +MIDO5TA PO; +POTA1TAB14 PO
[2021-05-05] MEDS ORDERED: BISACODYL 10 MG SUPP PR PRN (14:45)
[2021-05-05] MEDS ORDERED: ACETAMINOPHEN TAB 650MG DOSE (2X325MG) PO PRN (14:45)
[2021-05-05] MEDS ORDERED: MIRALAX *UNIT DOSE* 17GM PACKET PO PRN (14:45)
[2021-05-05 15:15] VITALS: BP 111/58
[2021-05-05] MEDS: LACTOBACILLUS ACIDOPHILUS CAP (BACID) PO SCH ×2 (17:47→20:15)
[2021-05-05] MEDS: MIDODRINE 5 MG TAB PO SCH (17:48)
[2021-05-05 20:00] VITALS: BP 128/62
[2021-05-05] MEDS: DOCUSATE SODIUM 100MG CAPSULE PO SCH (20:14)
[2021-05-05] MEDS: HEPARIN SOD (PORCINE) 5000UNITS/ML 1ML VIAL/SYRINGE SC SCH (20:15)
[2021-05-05] MEDS ORDERED: ATORVASTATIN 20 MG TAB PO SCH (21:00)
[2021-05-05] MEDS ORDERED: SENNA 8.6 MG TAB (SENOKOT) PO SCH (21:00)
[2021-05-06 06:00] VITALS: BP 117/68
[2021-05-06 07:51] LABS: BASO % 0.2 % (0.0-1.0); EOS # 0.1 10^3/uL (0.0-0.5); EOS % 0.8 % (0.0-3.0); HEMOGLOBIN 10.9 g/dl (13.5-17.5); LYMPH # 1.6 10^3/uL (1.5-5.0); LYMPH % 13.6 % (24.0-44.0); MEAN CORPUSCULAR HEMOGLOBIN 31.2 pg (27.0-33.0); MEAN CORPUSCULAR HGB CONC 31.1 g/dl (32.0-36.5); MEAN CORPUSCULAR VOLUME 100.3 fl (80.0-96.0); MONO # 0.6 10^3/uL (0.0-0.8); NEUTROPHILS # 9.2 10^3/uL (1.5-8.5); NEUTROPHILS % 77.7 % (36.0-66.0); PLATELET COUNT, AUTOMATED 268 10^3/uL (150-450); RED BLOOD COUNT 3.49 10^6/uL (4.30-6.10); WHITE BLOOD COUNT 11.9 10^3/uL (4.0-10.0)
[2021-05-06 08:26] LABS: BILIRUBIN,TOTAL 0.2 MG/DL (0.2-1.0); CALCIUM LEVEL 8.3 MG/DL (8.8-10.2); CREATININE FOR GFR 1.49 MG/DL (0.70-1.30); GLOMERULAR FILTRATION RATE 47.9 (>35); POTASSIUM SERUM 3.9 MEQ/L (3.5-5.1); TOTAL PROTEIN 5.6 GM/DL (6.4-8.2)
[2021-05-06 09:00] VITALS: BP 119/60
[2021-05-06] MEDS ORDERED: POTASSIUM CHLORIDE 10 MEQ SR TABLET PO SCH (09:00)
[2021-05-06] MEDS ORDERED: TAMSULOSIN 0.4 MG CAP PO SCH (09:00)
[2021-05-06] MEDS ORDERED: ESCITALOPRAM OXALATE 10 MG TAB (LEXAPRO) PO SCH (09:00)
[2021-05-06] MEDS ORDERED: PANTOPRAZOLE 40MG TAB (PROTONIX) PO SCH (09:00)
[2021-05-06] MEDS ORDERED: allopurinoL 300 MG TAB PO SCH (09:00)
[2021-05-06] MEDS: DOCUSATE SODIUM 100MG CAPSULE PO SCH (09:00)
[2021-05-06] MEDS ORDERED: ASPIRIN 81MG ENTERIC TABLET PO SCH (09:00)
[2021-05-06] MEDS: LACTOBACILLUS ACIDOPHILUS CAP (BACID) PO SCH ×3 (09:12→17:44)
[2021-05-06] MEDS: HEPARIN SOD (PORCINE) 5000UNITS/ML 1ML VIAL/SYRINGE SC SCH (09:13)
[2021-05-06] MEDS: MIDODRINE 5 MG TAB PO SCH ×3 (09:13→16:00)
--- NOTE | 2021-05-06 11:09 | HPEPDOC ---
[facility] Note DATE OF ADMISSION: 05-05-21 DATE OF SERVICE: 05-06-21 TIME OF ADMISSION: Please refer to physician's admission order. SOURCE OF ADMISSION INFORMATION: [facility] record and patient CHIEF COMPLAINT: falls in setting of spinal stenosis and UTI HISTORY OF PRESENT ILLNESS: 80M pmh HTN, HLD, CKD with polycystic kidney disease, gout, BPH, prostate cancer, hx of kidney stones who was recently treated on ARU for weakness in setting UTI with indwelling catheter presented to [facility] ED on 05-02-21 with chest pain. Cardiac work-up was negative, but he was instructed to follow-up with cardiology for a stress test as outpatient. He was noted to have foul smelling urine and started on antibiotics for a urinary tract infection. Despite having a history of HTN he had episodes of hypotension and was started on midodrine. Urine culture did not grow bacteria and CXR as work-up for infection was also negative, but he was maintained on oral Levaquin for suspected UTI in setting of worsening leukocytosis. He had mobility and ADL impairments and deemed medically appropriate for discharge to ARU on 05-05-21. REVIEW OF SYSTEMS: The following is a completed review of systems and has been reviewed. Review of systems otherwise unremarkable. PAIN: Patient self reports no pain EYES: No recent vision changes EARS, NOSE, & THROAT: No throat pain, or dysphagia, or rhinorrhea CARDIOVASCULAR: Denies chest pain or palpitations PULMONARY: Denies shortness of breath GASTROINTESTINAL: Denies constipation/diarrhea GENITOURINARY: +maria MUSCULOSKELETAL: generalized weakness NEUROLOGICAL:denies tremor or paresthesias HEMATOLOGICAL: denies easy bruising SKIN: denies rash PSYCHIATRIC: Unremarkable All other review of systems found to be negative. PAST MEDICAL HISTORY: as per HPI PAST SURGICAL HISTORY: Back surgery, tonsillectomy, appendectomy, left arm melanoma removal ALLERGIES: Please see below. MEDICATIONS: Please see below. FAMILY HISTORY: Cancer and cardiac SOCIAL HISTORY: Former smoker, no etoh/illicit drugs DIET: 2 gram sodium PHYSICAL EXAMINATION: VITAL SIGNS: Please see below. GENERAL: Pleasant and cooperative. No acute distress. HEENT: PERRL. Extraocular movements intact. Clear conjunctiva CARDIOVASCULAR: Regular rate and rhythm. No murmurs, rubs, or gallops LUNGS: Clear to auscultation bilaterally. No wheezes. No rhonchi ABDOMEN: Soft, nontender, nondistended. Positive bowel sounds. Normal active bowel sounds NEUROLOGICAL: Alert and oriented times three. Cranial nerves II through XII grossly intact. Sensation grossly intact EXTREMITIES: 5\5 strength bilateral upper extremities. 5-\5 strength right lower extremity. 5-/5 strength in left lower extremity. SKIN: no sacral ulcers LABORATORY DATA: Please see below. IMAGING:Imaging documentation personally reviewed by record FUNCTIONAL STATUS: Premorbid: Modified Independent with all activities of daily life as well as mobility On Admission: contact guard bed mobility, dressing, toileting, ambulation GOALS: Mod-I ambulation household distances, dressing, toileting, bathing, f unctional transfers, bed mobility. ASSESSMENT:80-year-old M with past medical history of recurrent UTIs who presents status post falls in setting of sepsis due to UTI and spinal stenosis PLAN: 1. Rehab- PT/OT advance mobility and ADLs, strengthen/stretch/maintain ROM all 4 limbs 2. Neuro/Ortho- severe spinal stenosis at L4-L5 on recent imaging contributing to overall functional deficits 3. cardiac- hx of HTN with recent episodes of hypotension, c/u midodrine and monitor -HLD- c/u statin -CAD c/u ASA 4. Resp- monitor for infection, incentive spirometry 5. Renal/- hx of polycystic kidney disease with hx of bilat hydroureteronephrosis with recent admission for suspected UTI vs prostatitis (Ucx negative with elevated leukocytosis), c/u levaquin- c/u maria and f/u urology outpatient -c/u flomax -hx of BPH with elevated PSA- f/u with Dr. Yanez 6. Gi ppx- protonix 7. DVT ppx- heparin 8. Pain- tylenol prn 9. Psych- depression- c/u lexapro 10. DIspo- tbd POST ADMISSION PHYSICIAN EVALUATION: Medical and functional status: Description of medical status, medical assessment: As above. Rehabilitation diagnosis and current and prior cold morbid medical conditions as above. Risk of complications and plans to mitigate them as above. Description of functional status current status is as above. Prior status as above. Status compared to preadmission: There are no clinically significant differences between the patient's current status and the information described on the preadmission screening document. Treatment plan anticipated: Treatment plan is as described above. Required dis ciplines including physical therapy, occupational therapy, others as noted above. Intensity of services: 3 hours a day, 6 days a week. Special considerations: There are no specific special or safety considerations that would likely preclude immediate implementation of an intensive rehabilitation program or subsequently influence the plan of care. ATTESTATION: Considering all the information above, it is my best judgment that this patient requires intensive rehabilitation therapy as described above and an inpatient hospital environment due to the complexity of nursing, medical, and rehabilitation needs required by the patient. Furthermore, this patient can reasonably be expected to participate in an benefit from an inpatient rehabilitation stay with an interdisciplinary team approach to the delivery of rehabilitation care under the direction and supervision of rehabilitation physician. PROGNOSIS: good ESTIMATED LENGTH OF STAY:10-14 days. PROJECTED DISCHARGE DESTINATION: Home with family support and any durable medical equipment required to increase functional safety and mobility. TIME SPENT COUNSELING AND COORDINATING INITIAL CARE: Greater than 70 minutes. Vital Signs Vital Sign - Last 24 Hours 05/05/21 05/05/21 05/05/21 05/06/21 15:15 20:00 20:18 06:00 Temp 97.3 98.1 98.7 Pulse 63 52 58 64 Resp 18 18 18 B/P (MAP) 111/58 (75) 128/62 (84) 117/68 (84) Pulse Ox 99 97 96 O2 Delivery Room Air Room Air Room Air 05/06/21 09:00 B/P (MAP) 119/60 (79) Laboratory Data CBC/BMP Laboratory Tests 05/06/21 07:41 Labs 24H Laboratory Tests 2 05/06/21 07:41: Immature Granulocyte % (Auto) 2.7, Neutrophils (%) (Auto) 77.7H, Lymphocytes (%) (Auto) 13.6L, Monocytes (%) (Auto) 5.0, Eosinophils (%) (Auto) 0.8, Basophils (%) (Auto) 0.2, Neutrophils # (Auto) 9.2H, Lymphocytes # (Auto) 1.6, Monocytes # (Auto) 0.6, Eosinophils # (Auto) 0.1, Basophils # (Auto) 0.0, Nucleated Red Blood Cells % (auto) 0.0, Anion Gap 6L, Glomerular Filtration Rate 47.9, Calcium Level 8.3L, Total Bilirubin 0.2, Aspartate Amino Transf (AST/SGOT) 19, Alanine Aminotransferase (ALT/SGPT) 26, Alkaline Phosphatase 63, Total Protein 5.6L, Albumin 2.0L, Albumin/Globulin Ratio 0.6 Home Medications Scheduled Allopurinol (Zyloprim) 300 Mg Tablet, 300 MG PO DAILY, (Reported) Aspirin (Aspirin EC) 81 Mg Tablet.dr, 81 MG PO DAILY, (Reported) Atorvastatin Calcium (Atorvastatin Calcium) 20 Mg Tablet, 20 MG PO QHS, (Reported) Escitalopram Oxalate (Lexapro) 20 Mg Tablet, 20 MG PO DAILY, (Reported) Levofloxacin (Levofloxacin) 750 Mg Tablet, 750 MG PO Q48H Midodrine HCl (Midodrine HCl) 5 Mg Tablet, 10 MG PO 08,12,16 only take if your systolic blood pressure (top number) drops belowe 110 Potassium Chloride (Klor-Con M10) 10 Meq Tab.er.prt, 20 MEQ PO DAILY Tamsulosin HCl (Flomax) 0.4 Mg Capsule, 0.8 MG PO DAILY Allergies Coded Allergies: codeine (Verified Adverse Reaction, Intermediate, altered , 11/10/20) A-FIB/CHADSVASC A-FIB History Current/History of A-Fib/PAF?: No Current PO Anticoag Therapy: No SAMINA ALMANZA MD May 06, 2021 11:09
[2021-05-06] MEDS ORDERED: GABAPENTIN 100 MG CAP PO ONE (12:15)
--- NOTE | 2021-05-06 12:17 | IPNPDOC ---
Date Seen The patient was seen on 05/06/21. Progress Note SUBJECTIVE: Patient complains of numbness bilateral lower extremities in the legs denies any back pain or radicular pain from the back no prior history of spinal stenosis Denies any urinary or bowel incontinence denies any constipation No falls. Siddiqi catheter in place due to chronic urine retention no fever chills OBJECTIVE: VITAL SIGNS: GENERAL: Generally awake, alert and oriented. Sitting on a chair at the bedside answering questions appropriately. No respiratory distress. No JVD or thyromegaly. Lungs are diminished but clear to auscultation, no wheezing, rales, or rhonchi. No use of respiratory accessory muscles. HEART: S1, S2, sinus rhythm. ABDOMEN: Soft, nontender, nondistended. Siddiqi catheter in place. [place] in color, blood-tinged. EXTREMITIES: No pitting edema. SKIN: Some erythema around the groin Laboratory data and imaging studies have been reviewed. ASSESSMENT: An 81-year-old male with a history of prostate cancer presented with complaints of chest pain, negative for acute coronary syndrome. Found to have a urinary tract infection and urine retention complicated by Siddiqi catheter, benign prostatic hypertrophy, noncompliant with Siddiqi with the Siddiqi being placed back with [id number] renal failure stage III. 1. Sepsis. Resolved -Status post IV Zosyn currently finishing 7-day course with p.o. Levaquin 2. UTI. Resolved -Urine culture negative -Completing a full 7-day course of antibiotics now on oral Levaquin 3. Prostate cancer. -Outpatient urology follow-up -has chronic urine retention -will need to go home with a Siddiqi catheter with increased risk of UTIs 4. Benign prostatic hypertrophy. -On Flomax 5. Chest pain, acute coronary syndrome ruled out. 6. Acute kidney injury on chronic kidney disease stage III, status post IV fluids. -Resolved back to baseline 7. History of polycystic kidney disease. -Outpatient follow-up with nephrology 8. Hypertension, currently with low blood pressure. -Continued on midodrine -Discontinued Cardizem 9. Hyperlipidemia. 10. Gout. 11. Neuropathy -Trial of gabapentin. - If patient does not develop increased lethargy or obtundation may start on 100 twice daily starting tomorrow if neuropathy continues VS, I&O, 24H, Fishbone Vital Signs/I&O Vital Signs Date Time Temp Pulse Resp B/P (MAP) Pulse Ox O2 Delivery O2 Flow Rate FiO2 05/06/21 09:00 119/60 (79) 05/06/21 06:00 98.7 64 18 96 Room Air I&O- Last 24 Hours up to 6 AM 05/06/21 06:00 Intake Total 340 ml Output Total 1075 ml Balance -735 ml Laboratory Data 24H LABS Laboratory Tests 2 05/06/21 07:41: Immature Granulocyte % (Auto) 2.7, Neutrophils (%) (Auto) 77.7H, Lymphocytes (%) (Auto) 13.6L, Monocytes (%) (Auto) 5.0, Eosinophils (%) (Auto) 0.8, Basophils (%) (Auto) 0.2, Neutrophils # (Auto) 9.2H, Lymphocytes # (Auto) 1.6, Monocytes # (Auto) 0.6, Eosinophils # (Auto) 0.1, Basophils # (Auto) 0.0, Nucleated Red Blood Cells % (auto) 0.0, Anion Gap 6L, Glomerular Filtration Rate 47.9, Calcium Level 8.3L, Total Bilirubin 0.2, Aspartate Amino Transf (AST/SGOT) 19, Alanine Aminotransferase (ALT/SGPT) 26, Alkaline Phosphatase 63, Total Protein 5.6L, Albumin 2.0L, Albumin/Globulin Ratio 0.6 CBC/BMP Laboratory Tests 05/06/21 07:41 VIVEK MARTINEZ MD May 06, 2021 12:17
[2021-05-06 14:00] VITALS: BP 113/59
[2021-05-06] MEDS ORDERED: MIDO5TA PO (15:59)
[2021-05-06] MEDS ORDERED: KLOR10TA76 PO (15:59)
[2021-05-06] MEDS ORDERED: LEVO750T13 PO (15:59)
[2021-05-06] MEDS ORDERED: traZODone 25MG PER 1/2 TABLET PO PRN (16:35)
[2021-05-07] MEDS ORDERED: LevoFLOXacin 750 MG TABLET PO SCH (06:00)
== END 2021-05-06 17:20 | disposition left against medical advice (07) | DRG 948 ==
LOC: M PM&R 15:08
PROVIDERS: ADMIT Physical Medicine & Rehabilitation; ATTEND Physical Medicine & Rehabilitation
DX: R53.1 Weakness (principal); Q61.3 Polycystic kidney, unspecified; I12.9 Hypertensive chronic kidney disease with stage 1 through stage 4 chronic kidney disease, or unspecified chronic kidney disease; N18.9 Chronic kidney disease, unspecified; E78.5 Hyperlipidemia, unspecified; M10.9 Gout, unspecified; N40.0 Benign prostatic hyperplasia without lower urinary tract symptoms; M48.061 Spinal stenosis, lumbar region without neurogenic claudication; F32.9 Major depressive disorder, single episode, unspecified; Z85.46 Personal history of malignant neoplasm of prostate; Z74.09 Other reduced mobility; Z74.1 Need for assistance with personal care; Z87.891 Personal history of nicotine dependence; Z90.49 Acquired absence of other specified parts of digestive tract; Z85.820 Personal history of malignant melanoma of skin; Z79.82 Long term (current) use of aspirin; Z79.899 Other long term (current) drug therapy; Z88.5 Allergy status to narcotic agent; G62.9 Polyneuropathy, unspecified

== ENCOUNTER → 2021-06-03 | Outpatient (REF) | payer MEDICARE, BC ==
[~2021-06-03] MED LIST changes: +KLOR10TA76 PO
== END ==
LOC: M SMT 18:32
PROVIDERS: ATTEND Urology
DX: R33.9 Retention of urine, unspecified (principal)

== ENCOUNTER → 2021-10-01 | Outpatient (REF) | payer MEDICARE, BC ==
[~2021-10-01] MED LIST changes: -KLOR10TA76 PO; +POTA-136 PO
[2021-10-01 13:53] LABS: APPEARANCE, URINE TURBID (CLEAR); BACTERIA, URINE AUTO NEGATIVE (NEGATIVE); BILIRUBIN, URINE AUTO NEGATIVE (NEGATIVE); BLOOD, URINE BLOOD 2+ (NEGATIVE); COLOR, URINE YELLOW (YELLOW); GLUCOSE, URINE (UA) AUTO NEGATIVE (NEGATIVE); KETONE, URINE AUTO NEGATIVE (NEGATIVE); LEUKOCYTE ESTERASE, URINE AUTO 3+ (NEGATIVE); NITRITE, URINE AUTO NEGATIVE (NEGATIVE); PROTEIN, URINE AUTO 2+ mg/dL (NEGATIVE); RBC, URINE AUTO 138 /HPF (0-3); SPECIFIC GRAVITY URINE AUTO 1.011 (1.002-1.035); SQUAMOUS EPITHELIAL CELL UR AU 0 /HPF (0-6); UROBILINOGEN, URINE AUTO 0.2 mg/dL (0.0-2.0); WBC, URINE AUTO TNTC /HPF (0-3)
== END ==
LOC: M SMT 13:14
PROVIDERS: ATTEND Urology
DX: N39.0 Urinary tract infection, site not specified (principal)
CPT/HCPCS: 51702; 81001; 87088; 87186; G0463

== ENCOUNTER → 2021-10-28 | Outpatient (REF) | payer MEDICARE, BC ==
[2021-10-28 19:02] LABS: APPEARANCE, URINE TURBID (CLEAR); BACTERIA, URINE AUTO NEGATIVE (NEGATIVE); BILIRUBIN, URINE AUTO NEGATIVE (NEGATIVE); BLOOD, URINE BLOOD 3+ (NEGATIVE); COLOR, URINE YELLOW (YELLOW); GLUCOSE, URINE (UA) AUTO NEGATIVE (NEGATIVE); KETONE, URINE AUTO NEGATIVE (NEGATIVE); LEUKOCYTE ESTERASE, URINE AUTO 2+ (NEGATIVE); NITRITE, URINE AUTO NEGATIVE (NEGATIVE); PROTEIN, URINE AUTO 2+ mg/dL (NEGATIVE); RBC, URINE AUTO TNTC /HPF (0-3); SPECIFIC GRAVITY URINE AUTO 1.009 (1.002-1.035); SQUAMOUS EPITHELIAL CELL UR AU 0 /HPF (0-6); UROBILINOGEN, URINE AUTO 0.2 mg/dL (0.0-2.0); WBC, URINE AUTO TNTC /HPF (0-3)
== END ==
LOC: M SMT 17:18
PROVIDERS: ATTEND Nurse Practitioner Women's Health
DX: N39.0 Urinary tract infection, site not specified (principal)

== ENCOUNTER → 2021-12-20 | Outpatient (CLI) | payer MEDICARE, BC ==
[~2021-12-20] MED LIST changes: +ALLO300T2 PO; -FLUC100T PO; +FLUC100T3 PO; -FLUC150T PO; +FLUC150T9 PO
== END ==
LOC: M WUC 14:23
PROVIDERS: ATTEND Physician Assistant
DX: Z01.810 Encounter for preprocedural cardiovascular examination (principal); R33.9 Retention of urine, unspecified; Z79.899 Other long term (current) drug therapy

== ENCOUNTER → 2021-12-20 | Outpatient (REF) | payer MEDICARE, BC ==
[2021-12-20 19:07] LABS: APPEARANCE, URINE TURBID (CLEAR); BACTERIA, URINE AUTO NEGATIVE (NEGATIVE); BILIRUBIN, URINE AUTO NEGATIVE (NEGATIVE); BLOOD, URINE BLOOD NEGATIVE (NEGATIVE); COLOR, URINE AMBER (YELLOW); GLUCOSE, URINE (UA) AUTO NEGATIVE (NEGATIVE); INR 1.07; KETONE, URINE AUTO NEGATIVE (NEGATIVE); LEUKOCYTE ESTERASE, URINE AUTO 3+ (NEGATIVE); NITRITE, URINE AUTO NEGATIVE (NEGATIVE); PROTEIN, URINE AUTO 2+ mg/dL (NEGATIVE); PROTHROMBIN TIME 14.3 SECONDS (12.7-14.5); RBC, URINE AUTO 4 /HPF (0-3); SPECIFIC GRAVITY URINE AUTO 1.009 (1.002-1.035); SQUAMOUS EPITHELIAL CELL UR AU 2 /HPF (0-6); UROBILINOGEN, URINE AUTO 0.2 mg/dL (0.0-2.0); WBC, URINE AUTO TNTC /HPF (0-3)
[2021-12-20 19:08] LABS: PARTIAL THROMBOPLASTIN TIME 39.1 SECONDS (25.9-37.0)
== END ==
LOC: M LAB REF 17:27
PROVIDERS: ATTEND Internal Medicine
DX: Z01.810 Encounter for preprocedural cardiovascular examination (principal); Z79.899 Other long term (current) drug therapy

== ENCOUNTER → 2021-12-22 | Outpatient (REF) | payer MEDICARE, BC ==
[2021-12-23 17:30] LABS: APPEARANCE, URINE TURBID (CLEAR); BACTERIA, URINE AUTO 2+ (NEGATIVE); BILIRUBIN, URINE AUTO NEGATIVE (NEGATIVE); BLOOD, URINE BLOOD 2+ (NEGATIVE); COLOR, URINE YELLOW (YELLOW); GLUCOSE, URINE (UA) AUTO NEGATIVE (NEGATIVE); KETONE, URINE AUTO NEGATIVE (NEGATIVE); LEUKOCYTE ESTERASE, URINE AUTO 3+ (NEGATIVE); NITRITE, URINE AUTO POSITIVE (NEGATIVE); PROTEIN, URINE AUTO 2+ mg/dL (NEGATIVE); RBC, URINE AUTO 116 /HPF (0-3); SPECIFIC GRAVITY URINE AUTO 1.008 (1.002-1.035); SQUAMOUS EPITHELIAL CELL UR AU 0 /HPF (0-6); UROBILINOGEN, URINE AUTO 0.2 mg/dL (0.0-2.0); WBC, URINE AUTO TNTC /HPF (0-3)
== END ==
LOC: M SMT 16:47
PROVIDERS: ATTEND Physician Assistant
DX: R33.9 Retention of urine, unspecified (principal)

== ENCOUNTER → 2021-12-27 | Outpatient (CLI) | payer MEDICARE, BC | LOC: M LABSMTC 10:18 | PROVIDERS: ATTEND Anesthesiology | DX: Z20.828 Contact with and (suspected) exposure to other viral communicable diseases (principal); Z11.59 Encounter for screening for other viral diseases ==

== ENCOUNTER → 2021-12-31 | Day surgery (SDC) | payer MEDICARE, BC ==
[~2021-12-31] VITALS: Ht 177.8 cm; Wt 85.3 kg
[~2021-12-31] MED LIST changes: +ACETAMINOPHEN 1000MG 100ML IV BTL (OFIRMEV) (J0131 PER 10MG) As Ordered ONE; +ACETAMINOPHEN TAB 650MG DOSE (2X325MG) PO PRN; +BUPIVACAINE HCL 0.25% 30ML VIAL As Ordered ONE; +LIDOCAINE 1% SDV 30ML VIAL As Ordered ONE; +LIDOCAINE 2% 100MG/5ML SDV (FOR ANES.) As Ordered ONE; +LR 1,000 ML IV ONE; +LR 1,000 ML IV SCH; +ONDANSETRON 4MG/2ML VIAL As Ordered ONE; +ONDANSETRON 4MG/2ML VIAL IV PRN; +PERC5TAB12 PO; +PERCOCET 5MG/325MG TAB PO PRN; +ceFAZolin SOD 2 GM in IV 1 EA IV ONE; +cefTRIAXone SOD 1 GM in D5W MINI-BAG PLUS 50 ML IV ONE; +cefTRIAXone SOD 1GM VIAL (J0696 PER 250MG) As Ordered ONE; +dexameTHASONE 4 MG/ML 1ML VIAL (J1100 PER 1MG) As Ordered ONE; +fentaNYL 100 MCG/2 ML INJECTION As Ordered ONE; +propofoL 200 MG/20 ML VIAL As Ordered ONE
[2021-12-31] MEDS: fentaNYL 100 MCG/2 ML INJECTION IV PRN ×4 (15:25→15:47)
[2021-12-31 17:08] VITALS: BP 143/80
== END | disposition home or self-care (01) ==
LOC: M SDC 11:44
PROVIDERS: ATTEND Urology
DX: R33.9 Retention of urine, unspecified (principal); I10 Essential (primary) hypertension; M10.9 Gout, unspecified; N40.0 Benign prostatic hyperplasia without lower urinary tract symptoms; Z79.899 Other long term (current) drug therapy; Z88.5 Allergy status to narcotic agent; Z88.8 Allergy status to other drugs, medicaments and biological substances; Z87.891 Personal history of nicotine dependence
CPT/HCPCS: 51040; J0131; J0696; J1100; J2405; J3010

== ENCOUNTER → 2022-03-14 | Outpatient (CLI) | payer MEDICARE, BC ==
[~2022-03-14] MED LIST changes: -ACETAMINOPHEN 1000MG 100ML IV BTL (OFIRMEV) (J0131 PER 10MG) As Ordered ONE; -ACETAMINOPHEN TAB 650MG DOSE (2X325MG) PO PRN; -BUPIVACAINE HCL 0.25% 30ML VIAL As Ordered ONE; -LIDOCAINE 1% SDV 30ML VIAL As Ordered ONE; -LIDOCAINE 2% 100MG/5ML SDV (FOR ANES.) As Ordered ONE; -LR 1,000 ML IV ONE; -LR 1,000 ML IV SCH; -ONDANSETRON 4MG/2ML VIAL As Ordered ONE; -ONDANSETRON 4MG/2ML VIAL IV PRN; -PERCOCET 5MG/325MG TAB PO PRN; -ceFAZolin SOD 2 GM in IV 1 EA IV ONE; -cefTRIAXone SOD 1 GM in D5W MINI-BAG PLUS 50 ML IV ONE; -cefTRIAXone SOD 1GM VIAL (J0696 PER 250MG) As Ordered ONE; -dexameTHASONE 4 MG/ML 1ML VIAL (J1100 PER 1MG) As Ordered ONE; -fentaNYL 100 MCG/2 ML INJECTION As Ordered ONE; -propofoL 200 MG/20 ML VIAL As Ordered ONE
== END ==
LOC: M PLALAB 15:50
PROVIDERS: ATTEND Urology
DX: C61 Malignant neoplasm of prostate (principal)

== ENCOUNTER 2022-04-15 18:51 | Inpatient (IN) | payer MEDICARE, BC ==
[~2022-04-15] VITALS: Ht 177.8 cm; Wt 86.7 kg
[2022-04-15 19:54] LABS: BASO % 0.1 % (0.0-1.0); EOS # 0.2 10^3/uL (0.0-0.5); EOS % 2.7 % (0.0-3.0); HEMATOCRIT 33.9 % (42.0-52.0); HEMOGLOBIN 11.2 g/dl (13.5-17.5); LYMPH # 0.6 10^3/uL (1.5-5.0); LYMPH % 8.2 % (24.0-44.0); MEAN CORPUSCULAR HEMOGLOBIN 32.8 pg (27.0-33.0); MEAN CORPUSCULAR VOLUME 99.4 fl (80.0-96.0); MONO # 0.5 10^3/uL (0.0-0.8); MONO % 5.9 % (2.0-8.0); NEUTROPHILS # 6.4 10^3/uL (1.5-8.5); NEUTROPHILS % 82.8 % (36.0-66.0); PLATELET COUNT, AUTOMATED 188 10^3/uL (150-450); RED BLOOD COUNT 3.41 10^6/uL (4.30-6.10); WHITE BLOOD COUNT 7.8 10^3/uL (4.0-10.0)
[2022-04-15 20:23] LABS: CK-MB VALUE MASS 2.4 NG/ML (<3.6); MB/CK RELATIVE INDEX 5.45 (< OR =4)
[2022-04-15] MEDS ORDERED: ONDANSETRON 4MG/2ML VIAL IV ONE (20:25)
[2022-04-15] MEDS ORDERED: NS 500 ML IV ONE (20:25)
[2022-04-15 20:38] LABS: ALBUMIN 3.1 GM/DL (3.2-5.2); BILIRUBIN,DIRECT 0.1 MG/DL (0.0-0.2); BILIRUBIN,TOTAL 0.3 MG/DL (0.2-1.0); CALCIUM LEVEL 8.9 MG/DL (8.8-10.2); CREATININE FOR GFR 2.89 MG/DL (0.70-1.30); GLOMERULAR FILTRATION RATE 22.3 (>35); POTASSIUM SERUM 4.2 MEQ/L (3.5-5.1)
[2022-04-15] MEDS: GASTROGRAFIN SOLUTION 30ML PO SCH ×2 (20:45→21:05)
[2022-04-15 21:23] LABS: RSV AMPLIFICATION NEGATIVE (NEGATIVE)
[2022-04-15 21:26] LABS: CK-MB VALUE MASS 2.1 NG/ML (<3.6); MB/CK RELATIVE INDEX 5.53 (< OR =4)
[2022-04-15] MEDS ORDERED: OXYB10TA23 PO (22:37)
[2022-04-15] MEDS ORDERED: NITR100C2 PO (22:37)
[2022-04-15] MEDS ORDERED: ATOR1TAB21 PO (22:37)
[2022-04-15] MEDS ORDERED: CIPR500T39 PO (22:37)
[2022-04-15] MEDS ORDERED: MED REC COMMENT (22:39)
[2022-04-15] MEDS ORDERED: HOME MED LIST COMPLETE! XX SCH (22:40)
[2022-04-15] MEDS ORDERED: ACETAMINOPHEN TAB 650MG DOSE (2X325MG) PO PRN (23:55)
[2022-04-16] VITALS (10 sets, daily range): BP systolic 112–134; BP diastolic 56–69; O2SAT 96–99
[2022-04-16] MEDS ORDERED: NS 1,000 ML IV SCH (00:35)
[2022-04-16 02:24] LABS: INR 1.12; PROTHROMBIN TIME 14.8 SECONDS (12.7-14.5)
[2022-04-16 02:25] LABS: PARTIAL THROMBOPLASTIN TIME 40.8 SECONDS (25.9-37.0)
[2022-04-16 02:27] LABS: D-DIMER QUANT 1345.75 ng/ml (<500)
[2022-04-16 04:54] LABS: APPEARANCE, URINE HAZY (CLEAR); BACTERIA, URINE AUTO NEGATIVE (NEGATIVE); BILIRUBIN, URINE AUTO NEGATIVE (NEGATIVE); BLOOD, URINE BLOOD 1+ (NEGATIVE); COLOR, URINE YELLOW (YELLOW); GLUCOSE, URINE (UA) AUTO NEGATIVE (NEGATIVE); KETONE, URINE AUTO NEGATIVE (NEGATIVE); LEUKOCYTE ESTERASE, URINE AUTO 3+ (NEGATIVE); NITRITE, URINE AUTO NEGATIVE (NEGATIVE); PROTEIN, URINE AUTO 1+ mg/dL (NEGATIVE); RBC, URINE AUTO 25 /HPF (0-3); SQUAMOUS EPITHELIAL CELL UR AU 0 /HPF (0-6); UROBILINOGEN, URINE AUTO 0.2 mg/dL (0.0-2.0); WBC, URINE AUTO 132 /HPF (0-3)
[2022-04-16] MEDS ORDERED: REMDESIVIR 200 MG in NS 250 ML IV ONE (05:00)
[2022-04-16 05:16] LABS: CREATININE,RANDOM URINE 72.3 MG/DL
[2022-04-16] MEDS ORDERED: SODIUM CHLORIDE 0.9% INJ 10 ML SYR IV ONE (07:00)
[2022-04-16 08:53] LABS: EOS # 0.3 10^3/uL (0.0-0.5); EOS % 5.8 % (0.0-3.0); HEMATOCRIT 30.8 % (42.0-52.0); LYMPH # 1.3 10^3/uL (1.5-5.0); LYMPH % 23.2 % (24.0-44.0); MEAN CORPUSCULAR HEMOGLOBIN 32.4 pg (27.0-33.0); MEAN CORPUSCULAR HGB CONC 32.5 g/dl (32.0-36.5); MEAN CORPUSCULAR VOLUME 99.7 fl (80.0-96.0); MONO # 0.6 10^3/uL (0.0-0.8); MONO % 10.6 % (2.0-8.0); NEUTROPHILS # 3.4 10^3/uL (1.5-8.5); PLATELET COUNT, AUTOMATED 165 10^3/uL (150-450); RED BLOOD COUNT 3.09 10^6/uL (4.30-6.10); WHITE BLOOD COUNT 5.7 10^3/uL (4.0-10.0)
[2022-04-16] MEDS ORDERED: ENOXAPARIN 40MG/0.4ML SYRINGE (J1650 PER 10MG) SC SCH (09:00)
[2022-04-16 09:18] LABS: ALBUMIN 2.6 GM/DL (3.2-5.2); BILIRUBIN,TOTAL 0.3 MG/DL (0.2-1.0); C REACTIVE PROTEIN QUANTITATIV 1.37 MG/DL (0.00-0.30); CALCIUM LEVEL 8.7 MG/DL (8.8-10.2); CREATININE FOR GFR 2.74 MG/DL (0.70-1.30); GLOMERULAR FILTRATION RATE 23.7 (>35); MAGNESIUM LEVEL 1.9 MG/DL (1.8-2.4); POTASSIUM SERUM 3.7 MEQ/L (3.5-5.1); TOTAL PROTEIN 6.4 GM/DL (6.4-8.2)
[2022-04-16] MEDS: HEPARIN SOD (PORCINE) 5000UNITS/ML 1ML VIAL/SYRINGE SQ SCH ×2 (11:04→21:12)
[2022-04-16] MEDS: NS 0.45% 1,000 ML IV SCH ×2 (12:26→21:12)
[2022-04-16] MEDS: ATORVASTATIN 20 MG TAB PO SCH (21:12)
[2022-04-17] VITALS (7 sets, daily range): BP systolic 101–132; BP diastolic 56–80; O2SAT 96–98
[2022-04-17] MEDS: REMDESIVIR 100 MG in NS 250 ML IV SCH (04:09)
[2022-04-17] MEDS: SODIUM CHLORIDE 0.9% INJ 10 ML SYR IV SCH (04:09)
[2022-04-17 08:10] LABS: EOS # 0.4 10^3/uL (0.0-0.5); EOS % 6.3 % (0.0-3.0); HEMATOCRIT 30.5 % (42.0-52.0); HEMOGLOBIN 9.9 g/dl (13.5-17.5); LYMPH # 1.5 10^3/uL (1.5-5.0); MEAN CORPUSCULAR HEMOGLOBIN 32.1 pg (27.0-33.0); MEAN CORPUSCULAR HGB CONC 32.5 g/dl (32.0-36.5); MONO # 0.5 10^3/uL (0.0-0.8); MONO % 7.7 % (2.0-8.0); NEUTROPHILS % 62.7 % (36.0-66.0); PLATELET COUNT, AUTOMATED 169 10^3/uL (150-450); RED BLOOD COUNT 3.08 10^6/uL (4.30-6.10); WHITE BLOOD COUNT 6.4 10^3/uL (4.0-10.0)
[2022-04-17 08:23] LABS: INR 1.21; PROTHROMBIN TIME 15.7 SECONDS (12.7-14.5)
[2022-04-17 08:24] LABS: PARTIAL THROMBOPLASTIN TIME 39.3 SECONDS (25.9-37.0)
[2022-04-17 08:35] LABS: ALBUMIN 2.5 GM/DL (3.2-5.2); BILIRUBIN,TOTAL 0.2 MG/DL (0.2-1.0); CALCIUM LEVEL 8.2 MG/DL (8.8-10.2); CREATININE FOR GFR 2.54 MG/DL (0.70-1.30); GLOMERULAR FILTRATION RATE 25.8 (>35); PHOSPHORUS LEVEL 3.5 MG/DL (2.5-4.9); POTASSIUM SERUM 3.8 MEQ/L (3.5-5.1); TOTAL PROTEIN 5.8 GM/DL (6.4-8.2)
[2022-04-17] MEDS: HEPARIN SOD (PORCINE) 5000UNITS/ML 1ML VIAL/SYRINGE SQ SCH ×2 (09:54→20:11)
[2022-04-17] MEDS: ATORVASTATIN 20 MG TAB PO SCH (20:11)
[2022-04-18 04:22] VITALS: BP 113/61
[2022-04-18] MEDS: REMDESIVIR 100 MG in NS 250 ML IV SCH (04:23)
[2022-04-18] MEDS: SODIUM CHLORIDE 0.9% INJ 10 ML SYR IV SCH (06:00)
[2022-04-18 06:21] LABS: EOS # 0.3 10^3/uL (0.0-0.5); EOS % 5.4 % (0.0-3.0); HEMATOCRIT 29.5 % (42.0-52.0); HEMOGLOBIN 9.8 g/dl (13.5-17.5); LYMPH # 1.6 10^3/uL (1.5-5.0); LYMPH % 25.7 % (24.0-44.0); MEAN CORPUSCULAR HGB CONC 33.2 g/dl (32.0-36.5); MEAN CORPUSCULAR VOLUME 99.3 fl (80.0-96.0); MONO # 0.5 10^3/uL (0.0-0.8); MONO % 8.5 % (2.0-8.0); NEUTROPHILS # 3.7 10^3/uL (1.5-8.5); NEUTROPHILS % 59.9 % (36.0-66.0); PLATELET COUNT, AUTOMATED 178 10^3/uL (150-450); RED BLOOD COUNT 2.97 10^6/uL (4.30-6.10); WHITE BLOOD COUNT 6.1 10^3/uL (4.0-10.0)
[2022-04-18 06:47] LABS: ALBUMIN 2.5 GM/DL (3.2-5.2); BILIRUBIN,TOTAL 0.3 MG/DL (0.2-1.0); CALCIUM LEVEL 7.9 MG/DL (8.8-10.2); CREATININE FOR GFR 2.49 MG/DL (0.70-1.30); GLOMERULAR FILTRATION RATE 26.4 (>35); PHOSPHORUS LEVEL 3.2 MG/DL (2.5-4.9); POTASSIUM SERUM 3.7 MEQ/L (3.5-5.1); TOTAL PROTEIN 5.9 GM/DL (6.4-8.2)
[2022-04-18 09:06] VITALS: O2SAT 97
[2022-04-18] MEDS: HEPARIN SOD (PORCINE) 5000UNITS/ML 1ML VIAL/SYRINGE SQ SCH (09:06)
[2022-04-18 12:00] VITALS: BP 135/75
[2022-04-18] MEDS ORDERED: ALLO100T PO (12:29)
== END 2022-04-18 14:45 | disposition home or self-care (01) | DRG 682 ==
LOC: M ED 18:51 → M ED INP 23:30 → ENRESERV 04-16 01:13 → M 4MAIN 04-16 02:07
PROVIDERS: ADMIT Family Medicine; ATTEND Internal Medicine Nephrology
DX: N17.9 Acute kidney failure, unspecified (principal); U07.1 COVID-19; Q61.3 Polycystic kidney, unspecified; I12.9 Hypertensive chronic kidney disease with stage 1 through stage 4 chronic kidney disease, or unspecified chronic kidney disease; R19.7 Diarrhea, unspecified; N40.0 Benign prostatic hyperplasia without lower urinary tract symptoms; E86.0 Dehydration; E78.00 Pure hypercholesterolemia, unspecified; R11.10 Vomiting, unspecified; N18.9 Chronic kidney disease, unspecified; E66.9 Obesity, unspecified; M10.9 Gout, unspecified; M48.061 Spinal stenosis, lumbar region without neurogenic claudication; Z87.891 Personal history of nicotine dependence; K57.30 Diverticulosis of large intestine without perforation or abscess without bleeding; Z85.46 Personal history of malignant neoplasm of prostate; Z79.899 Other long term (current) drug therapy; Z88.5 Allergy status to narcotic agent

== ENCOUNTER → 2022-09-05 | Outpatient (REF) | payer MEDICARE, BC ==
[~2022-09-05] MED LIST changes: +ALLO100T PO; +CIPR500T39 PO; +LEVO1TAB40 PO; -LEVO750T13 PO; +MED REC COMMENT; +OXYB10TA23 PO
[2022-09-05 14:06] LABS: PHOSPHORUS LEVEL 3.5 MG/DL (2.5-4.9); URIC ACID 3.5 MG/DL (3.5-7.2)
[2022-09-05 14:45] LABS: PTH INTACT 82.1 PG/ML (18.5-88.0)
== END ==
LOC: M LAB REF 12:22
PROVIDERS: ATTEND Internal Medicine
DX: N18.32 Chronic kidney disease, stage 3b (principal)

== ENCOUNTER → 2022-10-17 | Outpatient (CLI) | payer MEDICARE, BC | LOC: M PLALAB 09:55 | PROVIDERS: ATTEND Urology | DX: C61 Malignant neoplasm of prostate (principal) ==

== ENCOUNTER → 2023-01-11 | Outpatient (REF) | payer MEDICARE, BC | LOC: M SMT 13:10 | PROVIDERS: ATTEND Urology | DX: R33.9 Retention of urine, unspecified (principal) ==

== ENCOUNTER → 2023-03-06 | Outpatient (REF) | payer MEDICARE, BC ==
[2023-03-06 17:36] LABS: URIC ACID 3.8 MG/DL (3.7-9.2)
[2023-03-06 17:39] LABS: PHOSPHORUS LEVEL 3.6 MG/DL (2.4-5.1); PTH INTACT 105.5 PG/ML (18.5-88.0)
== END ==
LOC: M LAB REF 16:12
PROVIDERS: ATTEND Internal Medicine
DX: N18.32 Chronic kidney disease, stage 3b (principal)

== ENCOUNTER 2023-03-18 10:02 | Emergency (ER) | payer MEDICARE, BC ==
[~2023-03-18] VITALS: Ht 177.8 cm; Wt 95.5 kg
[~2023-03-18 10:02] MED LIST changes: +POTA-298 PO; -POTA1TAB14 PO
[2023-03-18 10:04] VITALS: BP 180/86
[2023-03-18] MEDS ORDERED: LIDOCAINE 2% 5ML JELLY UROJET TOP ONE (12:35)
[2023-03-18] MEDS ORDERED: LIDOCAINE 1% MDV 20ML VIAL IM ONE (14:35)
[2023-03-18] MEDS ORDERED: LIDOCAINE 1% MDV 20ML VIAL As Ordered ONE (14:36)
== END 2023-03-18 15:42 | disposition home or self-care (01) ==
LOC: M ED 10:02
DX: T83.518A Infection and inflammatory reaction due to other urinary catheter, initial encounter (principal); I10 Essential (primary) hypertension; E78.5 Hyperlipidemia, unspecified; C61 Malignant neoplasm of prostate; Z87.442 Personal history of urinary calculi; Z88.5 Allergy status to narcotic agent; Z79.02 Long term (current) use of antithrombotics/antiplatelets; Z79.899 Other long term (current) drug therapy

== ENCOUNTER 2023-04-04 15:59 | Emergency (ER) | payer MEDICARE, BC ==
[~2023-04-04] VITALS: Ht 177.8 cm; Wt 95.5 kg
[2023-04-04] MEDS ORDERED: LIDOCAINE 2% 5ML JELLY UROJET TOP ONE (16:30)
[2023-04-04 17:38] VITALS: BP 139/74
== END 2023-04-04 17:54 | disposition home or self-care (01) ==
LOC: M ED 15:59
DX: T83.518A Infection and inflammatory reaction due to other urinary catheter, initial encounter (principal); I10 Essential (primary) hypertension; C61 Malignant neoplasm of prostate; Z88.5 Allergy status to narcotic agent; Z79.02 Long term (current) use of antithrombotics/antiplatelets; Z79.899 Other long term (current) drug therapy

== ENCOUNTER → 2023-04-11 | Outpatient (REF) | payer MEDICARE, BC | LOC: M SFHCADAM 09:42 | PROVIDERS: ATTEND Urology | DX: C61 Malignant neoplasm of prostate (principal) ==

== ENCOUNTER 2023-04-30 10:54 | Inpatient (IN) | payer MEDICARE, BC ==
[2023-04-30] VITALS (7 sets, daily range): BP systolic 101–144; BP diastolic 52–74; TEMP 97.7–98.1; O2SAT 94–95
[~2023-04-30] VITALS: Ht 172.7 cm; Wt 103.3 kg
[2023-04-30] MEDS ORDERED: NS 500 ML IV ONE (11:15)
[2023-04-30 11:43] LABS: INR 1.14; PARTIAL THROMBOPLASTIN TIME 20.6 SECONDS (24.8-34.2); PROTHROMBIN TIME 14.8 SECONDS (12.5-14.5)
[2023-04-30 12:00] LABS: CK-MB VALUE MASS 2.8 NG/ML (<3.6); ETHYL ALCOHOL (ETHANOL) < 0.003 % (0.000-0.010)
[2023-04-30 12:02] LABS: BLOOD UREA NITROGEN 79 MG/DL (9-23); CALCIUM LEVEL 8.1 MG/DL (8.3-10.6); CARBON DIOXIDE LEVEL 15 MMOL/L (20-31); CHLORIDE LEVEL 112 MMOL/L (98-107); CREATININE FOR GFR 7.31 MG/DL (0.70-1.30); GLOMERULAR FILTRATION RATE 7.6 (>35); GLUCOSE, FASTING 89 MG/DL (74-106); MAGNESIUM LEVEL 1.7 MG/DL (1.8-2.4); SODIUM LEVEL 141 MMOL/L (136-145)
[2023-04-30 12:04] LABS: THYROID STIMULATING HORMONE 4.062 uIU/ML (0.55-4.78)
[2023-04-30 12:06] LABS: RSV AMPLIFICATION NEGATIVE (NEGATIVE)
[2023-04-30 12:08] LABS: CPK CREATINE PHOSPHOKINASE 135 U/L (46-171); MB/CK RELATIVE INDEX 2.07 (< OR =4)
[2023-04-30 12:22] LABS: BASO % 0.1 % (0.0-1.0); EOS % 0.2 % (0.0-3.0); HEMATOCRIT 33.8 % (42.0-52.0); LYMPH # 0.6 10^3/uL (1.5-5.0); LYMPH % 4.4 % (24.0-44.0); MEAN CORPUSCULAR HEMOGLOBIN 33.1 pg (27.0-33.0); MEAN CORPUSCULAR HGB CONC 32.5 g/dl (32.0-36.5); MEAN CORPUSCULAR VOLUME 101.8 fl (80.0-96.0); MONO # 0.7 10^3/uL (0.0-0.8); MONO % 5.1 % (2.0-8.0); NEUTROPHILS # 11.7 10^3/uL (1.5-8.5); NEUTROPHILS % 89.5 % (36.0-66.0); PLATELET COUNT, AUTOMATED 113 10^3/uL (150-450); RED BLOOD COUNT 3.32 10^6/uL (4.30-6.10)
[2023-04-30] MEDS ORDERED: SODIUM BICARBONATE 8.4% INJ 50ML SYRINGE IV ONE (13:30)
[2023-04-30] MEDS ORDERED: PATIROMER SORBITEX CALCIUM 8.4 GM POWDER PACKET (VELTASSA) PO ONE (13:30)
[2023-04-30] MEDS ORDERED: DEXTROSE 50% 50ML SYRINGE IV ONE (13:30)
[2023-04-30] MEDS ORDERED: HumuLIN R (REGULAR) INSULIN (NovoLIN R) **100U/ML** PER UNIT IV ONE (13:30)
[2023-04-30 13:57] LABS: CK-MB VALUE MASS 1.8 NG/ML (<3.6)
[2023-04-30 13:59] LABS: MB/CK RELATIVE INDEX 2.68 (< OR =4)
[2023-04-30] MEDS ORDERED: ACETAMINOPHEN TAB 650MG DOSE (2X325MG) PO PRN (14:25)
[2023-04-30] MEDS ORDERED: MOM 30ML SUSPENSION UDC PO PRN (14:25)
[2023-04-30] MEDS ORDERED: MAALOX 30 ML SUSP *UDC PO PRN (14:25)
[2023-04-30] MEDS ORDERED: ASPI-655 PO (14:39)
[2023-04-30] MEDS ORDERED: ALLO300T2 PO (14:39)
[2023-04-30] MEDS ORDERED: HOME MED LIST COMPLETE! XX SCH (14:40)
[2023-04-30] MEDS ORDERED: MAG SULF 1GM/100ML (MAG RUN) 1 GM in IV 1 EA IV ONE (16:00)
[2023-04-30 16:32] LABS: VENOUS BASE EXCESS -6.6 (-2.0-2.0); VENOUS O2 SATURATION 71.3 % (60.0-80.0); VENOUS PARTIAL PRESSURE CO2 38.1 mmHg (38.0-50.0); VENOUS PARTIAL PRESSURE O2 39.4 mmHg (30.0-50.0); VENOUS PH 7.315 UNITS (7.330-7.430); VENOUS STANDARD HCO3 18.6 MMOL/L; VENOUS TOTAL CO2 20.1 MMOL/L (24.0-28.0)
[2023-04-30 16:54] LABS: ALBUMIN 2.6 G/DL (3.2-5.2)
[2023-04-30 17:01] LABS: ACETONE/KETONE 0.49 MMOL/L (0.02-0.27); CALCIUM LEVEL 7.9 MG/DL (8.3-10.6); CREATININE FOR GFR 7.3 MG/DL (0.70-1.30); GLOMERULAR FILTRATION RATE 7.6 (>35); POTASSIUM SERUM 5.4 MMOL/L (3.5-5.1)
[2023-04-30] MEDS ORDERED: ONDANSETRON 4MG 2ML VIAL IV PRN (17:25)
[2023-04-30] MEDS: SODIUM BICARBONATE 150 MEQ in STERILE WATER LITER BAG 1,000 ML IV SCH (18:05)
[2023-04-30] MEDS: cefTRIAXone SOD 1 GM in D5W MINI-BAG PLUS 50 ML IV SCH (19:18)
[2023-04-30] MEDS: DOCUSATE SODIUM 100MG CAPSULE PO SCH (20:44)
[2023-04-30] MEDS ORDERED: ATORVASTATIN 20 MG TAB PO SCH (21:00)
[2023-04-30] MEDS: HEPARIN SOD (PORCINE) 5000UNITS/ML 1ML VIAL/SYRINGE SC SCH (21:16)
[2023-04-30 23:39] LABS: CALCIUM LEVEL 7.8 MG/DL (8.3-10.6); CREATININE FOR GFR 7.5 MG/DL (0.70-1.30); GLOMERULAR FILTRATION RATE 7.4 (>35); POTASSIUM SERUM 4.6 MMOL/L (3.5-5.1)
[2023-05-01] VITALS (7 sets, daily range): BP systolic 109–133; BP diastolic 54–68; TEMP 97–98; O2SAT 88–93
[2023-05-01 02:16] LABS: AMPHETAMINES LEVEL URINE NEGATIVE (NEGATIVE); BARBITURATES URINE NEGATIVE (NEGATIVE); BENZODIAZEPINES URINE NEGATIVE (NEGATIVE); CANNABINOIDS URINE NEGATIVE (NEGATIVE); COCAINE METABOLITE URINE NEGATIVE (NEGATIVE); METHADONE URINE NEGATIVE (NEGATIVE); OPIATES URINE NEGATIVE (NEGATIVE); PHENCYCLIDINE URINE NEGATIVE (NEGATIVE)
[2023-05-01] MEDS: SODIUM BICARBONATE 150 MEQ in STERILE WATER LITER BAG 1,000 ML IV SCH ×2 (04:40→17:21)
[2023-05-01 05:34] LABS: EOS # 0.2 10^3/uL (0.0-0.5); HEMATOCRIT 30.4 % (42.0-52.0); HEMOGLOBIN 9.9 g/dl (13.5-17.5); LYMPH # 0.8 10^3/uL (1.5-5.0); LYMPH % 9.8 % (24.0-44.0); MEAN CORPUSCULAR HEMOGLOBIN 32.7 pg (27.0-33.0); MEAN CORPUSCULAR HGB CONC 32.6 g/dl (32.0-36.5); MEAN CORPUSCULAR VOLUME 100.3 fl (80.0-96.0); MONO # 0.6 10^3/uL (0.0-0.8); MONO % 7.2 % (2.0-8.0); NEUTROPHILS # 6.3 10^3/uL (1.5-8.5); NEUTROPHILS % 80.5 % (36.0-66.0); PLATELET COUNT, AUTOMATED 100 10^3/uL (150-450); RED BLOOD COUNT 3.03 10^6/uL (4.30-6.10); WHITE BLOOD COUNT 7.9 10^3/uL (4.0-10.0)
[2023-05-01 05:56] LABS: CALCIUM LEVEL 7.5 MG/DL (8.3-10.6); CREATININE FOR GFR 7.79 MG/DL (0.70-1.30); GLOMERULAR FILTRATION RATE 7.1 (>35); MAGNESIUM LEVEL 1.9 MG/DL (1.8-2.4); POTASSIUM SERUM 4.7 MMOL/L (3.5-5.1)
[2023-05-01] MEDS: HEPARIN SOD (PORCINE) 5000UNITS/ML 1ML VIAL/SYRINGE SC SCH (05:56)
[2023-05-01] MEDS: DOCUSATE SODIUM 100MG CAPSULE PO SCH ×2 (08:26→20:22)
[2023-05-01] MEDS ORDERED: ASPIRIN 81MG CHEW TABLET PO ONE (11:55)
[2023-05-01 12:32] LABS: CHOLESTEROL RISK RATIO 4.5 (<5)
[2023-05-01 13:07] LABS: CREATININE FOR GFR 7.92 MG/DL (0.70-1.30); GLOMERULAR FILTRATION RATE 6.9 (>35); POTASSIUM SERUM 4.7 MMOL/L (3.5-5.1)
[2023-05-01] MEDS ORDERED: PNEUMOCOCCAL VACCINE 0.5ML SYRINGE (PNEUMOVAX 23) IM.IMMUN ONE (14:00)
[2023-05-01] MEDS: cefTRIAXone SOD 1 GM in D5W MINI-BAG PLUS 50 ML IV SCH (16:09)
[2023-05-01 16:47] LABS: HEMOGLOBIN A1c 5.5 % (4.0-6.0)
[2023-05-01 19:22] LABS: CALCIUM LEVEL 7.2 MG/DL (8.3-10.6); CREATININE FOR GFR 7.57 MG/DL (0.70-1.30); GLOMERULAR FILTRATION RATE 7.3 (>35); POTASSIUM SERUM 4.6 MMOL/L (3.5-5.1)
[2023-05-01] MEDS: ATORVASTATIN 20 MG TAB PO SCH (20:22)
[2023-05-02] VITALS (7 sets, daily range): BP systolic 121–152; BP diastolic 60–70; TEMP 97.2–98.6; O2SAT 90–96
[2023-05-02 00:55] LABS: CREATININE FOR GFR 7.31 MG/DL (0.70-1.30); GLOMERULAR FILTRATION RATE 7.6 (>35); POTASSIUM SERUM 4.7 MMOL/L (3.5-5.1)
[2023-05-02] MEDS: SODIUM BICARBONATE 150 MEQ in STERILE WATER LITER BAG 1,000 ML IV SCH ×2 (03:56→16:24)
[2023-05-02 06:35] LABS: EOS # 0.2 10^3/uL (0.0-0.5); EOS % 2.1 % (0.0-3.0); HEMOGLOBIN 9.7 g/dl (13.5-17.5); LYMPH # 0.7 10^3/uL (1.5-5.0); LYMPH % 8.5 % (24.0-44.0); MEAN CORPUSCULAR HEMOGLOBIN 32.4 pg (27.0-33.0); MEAN CORPUSCULAR HGB CONC 33.4 g/dl (32.0-36.5); MONO # 0.7 10^3/uL (0.0-0.8); MONO % 7.7 % (2.0-8.0); NEUTROPHILS # 6.9 10^3/uL (1.5-8.5); NEUTROPHILS % 81.2 % (36.0-66.0); PLATELET COUNT, AUTOMATED 120 10^3/uL (150-450); RED BLOOD COUNT 2.99 10^6/uL (4.30-6.10); WHITE BLOOD COUNT 8.4 10^3/uL (4.0-10.0)
[2023-05-02 07:00] LABS: CALCIUM LEVEL 7.3 MG/DL (8.3-10.6); CREATININE FOR GFR 7.07 MG/DL (0.70-1.30); GLOMERULAR FILTRATION RATE 7.9 (>35); MAGNESIUM LEVEL 1.7 MG/DL (1.8-2.4); POTASSIUM SERUM 4.5 MMOL/L (3.5-5.1)
[2023-05-02] MEDS: DOCUSATE SODIUM 100MG CAPSULE PO SCH ×2 (08:03→20:28)
[2023-05-02] MEDS: ASPIRIN 325 MG TAB PO SCH (08:03)
[2023-05-02] MEDS: MAG SULF 1GM/100ML (MAG RUN) 1 GM in IV 1 EA IV SCH ×2 (11:11→12:12)
[2023-05-02] MEDS: cefTRIAXone SOD 1 GM in D5W MINI-BAG PLUS 50 ML IV SCH (16:25)
[2023-05-02] MEDS: ATORVASTATIN 20 MG TAB PO SCH (20:28)
[2023-05-03] VITALS (9 sets, daily range): BP systolic 112–153; BP diastolic 63–79; TEMP 96.8–98.7; O2SAT 93–97
[2023-05-03] MEDS: SODIUM BICARBONATE 150 MEQ in STERILE WATER LITER BAG 1,000 ML IV SCH (02:29)
[2023-05-03 05:50] LABS: BASO % 0.1 % (0.0-1.0); EOS # 0.4 10^3/uL (0.0-0.5); EOS % 5.3 % (0.0-3.0); HEMATOCRIT 28.8 % (42.0-52.0); HEMOGLOBIN 9.5 g/dl (13.5-17.5); LYMPH # 1.2 10^3/uL (1.5-5.0); LYMPH % 16.6 % (24.0-44.0); MEAN CORPUSCULAR HEMOGLOBIN 32.5 pg (27.0-33.0); MEAN CORPUSCULAR VOLUME 98.6 fl (80.0-96.0); MONO # 0.8 10^3/uL (0.0-0.8); MONO % 10.3 % (2.0-8.0); NEUTROPHILS % 67.2 % (36.0-66.0); PLATELET COUNT, AUTOMATED 141 10^3/uL (150-450); RED BLOOD COUNT 2.92 10^6/uL (4.30-6.10); WHITE BLOOD COUNT 7.4 10^3/uL (4.0-10.0)
[2023-05-03 06:06] LABS: CALCIUM LEVEL 7.1 MG/DL (8.3-10.6); CREATININE FOR GFR 6.11 MG/DL (0.70-1.30); GLOMERULAR FILTRATION RATE 9.4 (>35); MAGNESIUM LEVEL 1.9 MG/DL (1.8-2.4); POTASSIUM SERUM 3.9 MMOL/L (3.5-5.1)
[2023-05-03] MEDS: NS 1,000 ML IV SCH ×2 (07:14→16:13)
[2023-05-03] MEDS: DOCUSATE SODIUM 100MG CAPSULE PO SCH ×2 (08:02→19:54)
[2023-05-03] MEDS: ASPIRIN 325 MG TAB PO SCH (08:02)
[2023-05-03] MEDS ORDERED: propofoL 200 MG/20 ML VIAL As Ordered ONE ×2 (09:33→09:36)
[2023-05-03] MEDS ORDERED: LIDOCAINE 2% 100MG/5ML SDV (FOR ANES.) As Ordered ONE (09:33)
[2023-05-03] MEDS ORDERED: fentaNYL 100 MCG/2 ML INJECTION As Ordered ONE (09:33)
[2023-05-03] MEDS ORDERED: ISOVUE-300 61% 100ML VIAL As Ordered ONE (09:43)
[2023-05-03] MEDS ORDERED: LIDOCAINE 1% MDV 20ML VIAL As Ordered ONE (09:43)
[2023-05-03] MEDS ORDERED: MIDAZOLAM INJ 2MG/2ML VIAL As Ordered ONE (09:59)
[2023-05-03] MEDS: cefTRIAXone SOD 1 GM in D5W MINI-BAG PLUS 50 ML IV SCH (16:09)
[2023-05-03] MEDS: ATORVASTATIN 20 MG TAB PO SCH (19:54)
[2023-05-03] MEDS: HEPARIN SOD (PORCINE) 5000UNITS/ML 1ML VIAL/SYRINGE SQ SCH (21:50)
[2023-05-04 04:04] VITALS: BP 142/72; TEMP 96.9; O2SAT 95
[2023-05-04] MEDS: HEPARIN SOD (PORCINE) 5000UNITS/ML 1ML VIAL/SYRINGE SQ SCH (05:26)
[2023-05-04] MEDS: NS 1,000 ML IV SCH ×2 (05:27→19:19)
[2023-05-04 05:46] LABS: BASO % 0.2 % (0.0-1.0); EOS # 0.4 10^3/uL (0.0-0.5); EOS % 5.4 % (0.0-3.0); HEMATOCRIT 30.8 % (42.0-52.0); HEMOGLOBIN 9.9 g/dl (13.5-17.5); LYMPH # 1.1 10^3/uL (1.5-5.0); LYMPH % 16.3 % (24.0-44.0); MEAN CORPUSCULAR HGB CONC 32.1 g/dl (32.0-36.5); MEAN CORPUSCULAR VOLUME 99.7 fl (80.0-96.0); MONO # 0.5 10^3/uL (0.0-0.8); MONO % 7.9 % (2.0-8.0); NEUTROPHILS # 4.6 10^3/uL (1.5-8.5); NEUTROPHILS % 69.9 % (36.0-66.0); PLATELET COUNT, AUTOMATED 143 10^3/uL (150-450); RED BLOOD COUNT 3.09 10^6/uL (4.30-6.10); WHITE BLOOD COUNT 6.6 10^3/uL (4.0-10.0)
[2023-05-04 06:10] LABS: CALCIUM LEVEL 7.7 MG/DL (8.3-10.6); CREATININE FOR GFR 5.01 MG/DL (0.70-1.30); GLOMERULAR FILTRATION RATE 11.8 (>35); MAGNESIUM LEVEL 1.7 MG/DL (1.8-2.4); POTASSIUM SERUM 3.9 MMOL/L (3.5-5.1)
[2023-05-04 07:52] VITALS: BP 152/68; TEMP 97.4; O2SAT 98
[2023-05-04] MEDS: DOCUSATE SODIUM 100MG CAPSULE PO SCH ×2 (08:42→19:56)
[2023-05-04] MEDS: ASPIRIN 325 MG TAB PO SCH (08:42)
[2023-05-04] MEDS: MAGNESIUM OXIDE 400MG TAB (MAG-OX) PO SCH ×2 (12:20→19:56)
[2023-05-04] MEDS: amLODIPine 5 MG TAB PO SCH (12:20)
[2023-05-04 15:16] VITALS: BP 148/68; TEMP 97.5; O2SAT 95
[2023-05-04] MEDS: cefTRIAXone SOD 1 GM in D5W MINI-BAG PLUS 50 ML IV SCH (17:14)
[2023-05-04] MEDS: ATORVASTATIN 20 MG TAB PO SCH (19:56)
[2023-05-04 20:20] VITALS: BP 169/70; TEMP 96.9; O2SAT 94
[2023-05-05 03:59] LABS: BASO % 0.2 % (0.0-1.0); EOS # 0.4 10^3/uL (0.0-0.5); EOS % 5.9 % (0.0-3.0); LYMPH # 1.6 10^3/uL (1.5-5.0); LYMPH % 25.9 % (24.0-44.0); MEAN CORPUSCULAR HEMOGLOBIN 32.1 pg (27.0-33.0); MEAN CORPUSCULAR HGB CONC 32.3 g/dl (32.0-36.5); MEAN CORPUSCULAR VOLUME 99.4 fl (80.0-96.0); MONO # 0.5 10^3/uL (0.0-0.8); MONO % 7.9 % (2.0-8.0); NEUTROPHILS # 3.7 10^3/uL (1.5-8.5); NEUTROPHILS % 59.8 % (36.0-66.0); PLATELET COUNT, AUTOMATED 161 10^3/uL (150-450); RED BLOOD COUNT 3.12 10^6/uL (4.30-6.10); WHITE BLOOD COUNT 6.2 10^3/uL (4.0-10.0)
[2023-05-05 04:24] LABS: CALCIUM LEVEL 7.3 MG/DL (8.3-10.6); CREATININE FOR GFR 4.06 MG/DL (0.70-1.30); MAGNESIUM LEVEL 1.6 MG/DL (1.8-2.4); POTASSIUM SERUM 3.9 MMOL/L (3.5-5.1)
[2023-05-05 04:47] VITALS: BP 170/80; TEMP 96.9; O2SAT 93
[2023-05-05] MEDS: amLODIPine 5 MG TAB PO SCH (05:07)
[2023-05-05 07:43] VITALS: BP 176/78; TEMP 98; O2SAT 95
[2023-05-05] MEDS ORDERED: amLODIPine 5 MG TAB PO ONE (08:00)
[2023-05-05] MEDS: MAGNESIUM OXIDE 400MG TAB (MAG-OX) PO SCH ×2 (08:13→20:26)
[2023-05-05] MEDS: ASPIRIN 81MG ENTERIC TABLET PO SCH (08:13)
[2023-05-05] MEDS: DOCUSATE SODIUM 100MG CAPSULE PO SCH ×2 (08:13→20:25)
[2023-05-05] MEDS: MAG SULF 1GM/100ML (MAG RUN) 1 GM in IV 1 EA IV SCH ×4 (08:14→12:03)
[2023-05-05 15:14] VITALS: BP 136/60; TEMP 97; O2SAT 97
[2023-05-05] MEDS: cefTRIAXone SOD 1 GM in D5W MINI-BAG PLUS 50 ML IV SCH (16:47)
[2023-05-05 20:05] VITALS: BP 160/87; TEMP 97.3; O2SAT 96
[2023-05-05] MEDS: ATORVASTATIN 20 MG TAB PO SCH (20:25)
[2023-05-06 04:00] VITALS: BP 157/67; TEMP 97.6; O2SAT 97
[2023-05-06 05:21] LABS: BASO % 0.3 % (0.0-1.0); EOS # 0.4 10^3/uL (0.0-0.5); EOS % 5.8 % (0.0-3.0); HEMATOCRIT 32.3 % (42.0-52.0); HEMOGLOBIN 10.3 g/dl (13.5-17.5); LYMPH # 1.8 10^3/uL (1.5-5.0); LYMPH % 23.4 % (24.0-44.0); MEAN CORPUSCULAR HGB CONC 31.9 g/dl (32.0-36.5); MEAN CORPUSCULAR VOLUME 100.3 fl (80.0-96.0); MONO # 0.5 10^3/uL (0.0-0.8); MONO % 7.1 % (2.0-8.0); NEUTROPHILS # 4.7 10^3/uL (1.5-8.5); NEUTROPHILS % 62.5 % (36.0-66.0); PLATELET COUNT, AUTOMATED 194 10^3/uL (150-450); RED BLOOD COUNT 3.22 10^6/uL (4.30-6.10); WHITE BLOOD COUNT 7.6 10^3/uL (4.0-10.0)
[2023-05-06 05:37] LABS: CALCIUM LEVEL 7.6 MG/DL (8.3-10.6); CREATININE FOR GFR 3.41 MG/DL (0.70-1.30); GLOMERULAR FILTRATION RATE 18.4 (>35); MAGNESIUM LEVEL 2.1 MG/DL (1.8-2.4)
[2023-05-06 07:52] VITALS: BP 160/70; TEMP 97.6; O2SAT 98
[2023-05-06] MEDS: ASPIRIN 81MG ENTERIC TABLET PO SCH (08:18)
[2023-05-06] MEDS: DOCUSATE SODIUM 100MG CAPSULE PO SCH ×2 (08:18→21:22)
[2023-05-06] MEDS: MAGNESIUM OXIDE 400MG TAB (MAG-OX) PO SCH ×2 (08:18→21:23)
[2023-05-06 10:00] VITALS: BP 138/63
[2023-05-06] MEDS: cefTRIAXone SOD 1 GM in D5W MINI-BAG PLUS 50 ML IV SCH (15:59)
[2023-05-06 16:00] VITALS: BP 154/62; TEMP 98.6; O2SAT 97
[2023-05-06 19:52] VITALS: BP 139/64; TEMP 98.2; O2SAT 98
[2023-05-06] MEDS: ATORVASTATIN 20 MG TAB PO SCH (21:22)
[2023-05-07 03:32] VITALS: BP 164/74; TEMP 98.6; O2SAT 96
[2023-05-07 06:21] LABS: BASO % 0.1 % (0.0-1.0); EOS # 0.5 10^3/uL (0.0-0.5); EOS % 5.5 % (0.0-3.0); HEMATOCRIT 31.5 % (42.0-52.0); LYMPH # 1.6 10^3/uL (1.5-5.0); MEAN CORPUSCULAR HEMOGLOBIN 32.1 pg (27.0-33.0); MEAN CORPUSCULAR HGB CONC 31.7 g/dl (32.0-36.5); MONO # 0.6 10^3/uL (0.0-0.8); MONO % 6.3 % (2.0-8.0); NEUTROPHILS # 6.1 10^3/uL (1.5-8.5); NEUTROPHILS % 69.5 % (36.0-66.0); PLATELET COUNT, AUTOMATED 189 10^3/uL (150-450); RED BLOOD COUNT 3.12 10^6/uL (4.30-6.10); WHITE BLOOD COUNT 8.8 10^3/uL (4.0-10.0)
[2023-05-07 06:52] LABS: CALCIUM LEVEL 8.3 MG/DL (8.3-10.6); CREATININE FOR GFR 3.1 MG/DL (0.70-1.30); GLOMERULAR FILTRATION RATE 20.5 (>35); MAGNESIUM LEVEL 1.8 MG/DL (1.8-2.4); POTASSIUM SERUM 4.2 MMOL/L (3.5-5.1)
[2023-05-07] MEDS: MAGNESIUM OXIDE 400MG TAB (MAG-OX) PO SCH ×2 (08:03→21:49)
[2023-05-07] MEDS: ASPIRIN 81MG ENTERIC TABLET PO SCH (08:03)
[2023-05-07] MEDS: DOCUSATE SODIUM 100MG CAPSULE PO SCH ×2 (08:03→21:49)
[2023-05-07 08:05] VITALS: BP 154/72; TEMP 97.8; O2SAT 97
[2023-05-07] MEDS: HEPARIN SOD (PORCINE) 5000UNITS/ML 1ML VIAL/SYRINGE SQ SCH ×2 (13:54→21:50)
[2023-05-07] MEDS: **hydrALAZINE** 10 MG TAB PO SCH ×2 (13:55→21:49)
[2023-05-07 15:52] VITALS: BP 140/64; TEMP 98.6; O2SAT 96
[2023-05-07] MEDS: cefTRIAXone SOD 1 GM in D5W MINI-BAG PLUS 50 ML IV SCH (16:04)
[2023-05-07] MEDS: ATORVASTATIN 20 MG TAB PO SCH (21:49)
[2023-05-08] VITALS: BP 150/90; TEMP 98.7; O2SAT 96
[2023-05-08 05:41] LABS: BASO % 0.1 % (0.0-1.0); EOS # 0.6 10^3/uL (0.0-0.5); EOS % 5.6 % (0.0-3.0); HEMATOCRIT 32.2 % (42.0-52.0); HEMOGLOBIN 10.3 g/dl (13.5-17.5); LYMPH # 1.7 10^3/uL (1.5-5.0); LYMPH % 17.5 % (24.0-44.0); MEAN CORPUSCULAR HEMOGLOBIN 32.3 pg (27.0-33.0); MEAN CORPUSCULAR VOLUME 100.9 fl (80.0-96.0); MONO # 0.6 10^3/uL (0.0-0.8); MONO % 6.2 % (2.0-8.0); NEUTROPHILS # 6.8 10^3/uL (1.5-8.5); NEUTROPHILS % 69.4 % (36.0-66.0); PLATELET COUNT, AUTOMATED 202 10^3/uL (150-450); RED BLOOD COUNT 3.19 10^6/uL (4.30-6.10); WHITE BLOOD COUNT 9.8 10^3/uL (4.0-10.0)
[2023-05-08 06:15] LABS: CALCIUM LEVEL 7.8 MG/DL (8.3-10.6); CREATININE FOR GFR 2.94 MG/DL (0.70-1.30); GLOMERULAR FILTRATION RATE 21.8 (>35); POTASSIUM SERUM 4.4 MMOL/L (3.5-5.1)
[2023-05-08] MEDS: HEPARIN SOD (PORCINE) 5000UNITS/ML 1ML VIAL/SYRINGE SQ SCH (06:19)
[2023-05-08] MEDS: **hydrALAZINE** 10 MG TAB PO SCH (06:19)
[2023-05-08 08:00] VITALS: BP 167/73; TEMP 97.9; O2SAT 96
[2023-05-08] MEDS: ASPIRIN 81MG ENTERIC TABLET PO SCH (09:12)
[2023-05-08 09:13] VITALS: BP 167/73
[2023-05-08] MEDS: DOCUSATE SODIUM 100MG CAPSULE PO SCH (09:13)
[2023-05-08] MEDS: MAGNESIUM OXIDE 400MG TAB (MAG-OX) PO SCH (09:13)
[2023-05-08] MEDS ORDERED: ALLO100T PO (10:51)
[2023-05-08] MEDS ORDERED: HYDR25TA PO (10:51)
[2023-05-08] MEDS ORDERED: MAGN400T2 PO (10:51)
[2023-05-08] MEDS ORDERED: COLA100C5 PO (10:51)
[2023-05-08] MEDS ORDERED: ATOR80TA59 PO (10:51)
[2023-05-08] MEDS ORDERED: AMLO1TAB25 PO (10:51)
[2023-05-08] MEDS ORDERED: LevoFLOXacin 750 MG TABLET PO ONE (11:00)
[2023-05-08 11:30] VITALS: BP 152/58
[2023-05-08] MEDS ORDERED: **hydrALAZINE HCL** 25 MG TAB PO SCH (14:00)
== END 2023-05-08 12:11 | DRG 659 ==
LOC: EDBD 10:54 → M ED 10:54 → M ED INP 14:24 → ENRESERV 15:45 → M PCU 17:13
PROVIDERS: ADMIT Internal Medicine; ATTEND Internal Medicine
PROC: 0T9170Z Drainage of Left Kidney with Drainage Device, Via Natural or Artificial Opening (ICD-10-PCS; principal; 2023-05-03 13:30)
DX: N17.9 Acute kidney failure, unspecified (principal); I63.81 Other cerebral infarction due to occlusion or stenosis of small artery; Q61.9 Cystic kidney disease, unspecified; E87.20 Acidosis, unspecified; I13.0 Hypertensive heart and chronic kidney disease with heart failure and stage 1 through stage 4 chronic kidney disease, or unspecified chronic kidney disease; I50.32 Chronic diastolic (congestive) heart failure; N39.0 Urinary tract infection, site not specified; T83.511A Infection and inflammatory reaction due to indwelling urethral catheter, initial encounter; N13.6 Pyonephrosis; D69.6 Thrombocytopenia, unspecified; E66.9 Obesity, unspecified; N18.30 Chronic kidney disease, stage 3 unspecified; E83.42 Hypomagnesemia; E87.5 Hyperkalemia; Z68.32 Body mass index [BMI] 32.0-32.9, adult; N40.1 Benign prostatic hyperplasia with lower urinary tract symptoms; M10.9 Gout, unspecified; D63.1 Anemia in chronic kidney disease; M48.00 Spinal stenosis, site unspecified; C61 Malignant neoplasm of prostate; I95.1 Orthostatic hypotension; E78.5 Hyperlipidemia, unspecified; L60.0 Ingrowing nail; Z88.5 Allergy status to narcotic agent; Z79.899 Other long term (current) drug therapy; Z79.82 Long term (current) use of aspirin; Y84.6 Urinary catheterization as the cause of abnormal reaction of the patient, or of later complication, without mention of misadventure at the time of the procedure

== ENCOUNTER → 2023-05-11 | Outpatient (REF) ==
[~2023-05-11] MED LIST changes: +AMLO1TAB25 PO; +ASPI-655 PO; +ATOR80TA59 PO; +COLA100C5 PO; +HYDR25TA PO; +MAGN400T2 PO
[2023-05-11 06:29] LABS: HEMATOCRIT 31.6 % (42.0-52.0); MEAN CORPUSCULAR HEMOGLOBIN 32.5 pg (27.0-33.0); MEAN CORPUSCULAR HGB CONC 31.6 g/dl (32.0-36.5); MEAN CORPUSCULAR VOLUME 102.6 fl (80.0-96.0); PLATELET COUNT, AUTOMATED 217 10^3/uL (150-450); RED BLOOD COUNT 3.08 10^6/uL (4.30-6.10); WHITE BLOOD COUNT 9.6 10^3/uL (4.0-10.0)
[2023-05-11 06:56] LABS: ALBUMIN 2.6 G/DL (3.2-5.2); BILIRUBIN,TOTAL 0.3 MG/DL (0.3-1.2); CALCIUM LEVEL 8.8 MG/DL (8.3-10.6); GLOMERULAR FILTRATION RATE 21.3 (>35); MAGNESIUM LEVEL 1.8 MG/DL (1.8-2.4); POTASSIUM SERUM 4.9 MMOL/L (3.5-5.1); TOTAL PROTEIN 5.7 G/DL (5.7-8.2)
== END ==
LOC: SKLAB5 09:39
PROVIDERS: ATTEND Internal Medicine
DX: I95.9 Hypotension, unspecified (principal); N18.9 Chronic kidney disease, unspecified

== ENCOUNTER → 2023-05-24 | Outpatient (CLI) | payer MEDICARE, BC | LOC: M RAD 09:20 | PROVIDERS: ATTEND Urology | DX: N13.30 Unspecified hydronephrosis (principal) ==

== ENCOUNTER → 2023-07-11 | Outpatient (REF) | payer MEDICARE, BC | LOC: M SFHCADAM 09:12 | PROVIDERS: ATTEND Urology | DX: C61 Malignant neoplasm of prostate (principal) ==

== ENCOUNTER → 2023-07-26 | Outpatient (CLI) | payer MEDICARE, BC | LOC: M RAD 14:25 | PROVIDERS: ATTEND Nurse Practitioner Family | DX: N28.1 Cyst of kidney, acquired (principal) ==

== ENCOUNTER → 2023-08-16 | Outpatient (CLI) | payer MEDICARE, BC ==
[~2023-08-16] VITALS: Ht 177.8 cm; Wt 99.8 kg
[~2023-08-16] MED LIST changes: +ISOVUE-300 61% 100ML VIAL As Ordered ONE; +LIDOCAINE 1% MDV 20ML VIAL As Ordered ONE; +NS 1,000 ML IV SCH; +ceFAZolin 2 GM/D5W 50 ML IV BAG As Ordered ONE; +ceFAZolin SOD 2 GM in IV 1 EA IV ONE
[2023-08-16 11:34] VITALS: TEMP 98.1
[2023-08-16 13:25] VITALS: BP 175/73; O2SAT 97
== END ==
LOC: M IRPRO 11:22
PROVIDERS: ATTEND Urology
DX: N13.30 Unspecified hydronephrosis (principal)
CPT/HCPCS: 50435; C1729; J0690; Q9967

== ENCOUNTER → 2023-09-12 | Outpatient (REF) | payer MEDICARE, BC ==
[~2023-09-12] MED LIST changes: -ISOVUE-300 61% 100ML VIAL As Ordered ONE; -LIDOCAINE 1% MDV 20ML VIAL As Ordered ONE; -NS 1,000 ML IV SCH; -ceFAZolin 2 GM/D5W 50 ML IV BAG As Ordered ONE; -ceFAZolin SOD 2 GM in IV 1 EA IV ONE
[2023-09-12 13:25] LABS: URIC ACID 4.1 MG/DL (3.7-9.2)
[2023-09-12 13:26] LABS: PTH INTACT 147.9 PG/ML (18.5-88.0)
== END ==
LOC: M LAB REF 12:31
PROVIDERS: ATTEND Internal Medicine
DX: N25.81 Secondary hyperparathyroidism of renal origin (principal); N17.9 Acute kidney failure, unspecified; M10.9 Gout, unspecified

== ENCOUNTER → 2023-10-25 | Outpatient (REF) | payer MEDICARE, BC | LOC: M SFHCADAM 08:38 | PROVIDERS: ATTEND Urology | DX: C61 Malignant neoplasm of prostate (principal) ==

== ENCOUNTER → 2023-12-26 | Outpatient (CLI) | payer MEDICARE, BC ==
[~2023-12-26] MED LIST changes: +ISOVUE-300 61% 100ML VIAL As Ordered ONE; +LIDOCAINE 1% MDV 20ML VIAL As Ordered ONE; +MIDAZOLAM INJ 2MG/2ML VIAL As Ordered ONE; +ceFAZolin 2 GM/D5W 50 ML IV BAG As Ordered ONE; +fentaNYL 100 MCG/2 ML INJECTION As Ordered ONE
[2023-12-26 09:30] VITALS: TEMP 98.2
[2023-12-26 12:15] VITALS: BP 156/81; O2SAT 97
== END ==
LOC: M IRPRO 09:20
PROVIDERS: ATTEND Urology
DX: N13.5 Crossing vessel and stricture of ureter without hydronephrosis (principal)
CPT/HCPCS: 50435; 75984; J0690; Q9967

== ENCOUNTER → 2024-03-19 | Outpatient (REF) | payer MEDICARE, OTHER ==
[~2024-03-19] MED LIST changes: -HYDR25TA PO; +HYDR25TA88 PO; -ISOVUE-300 61% 100ML VIAL As Ordered ONE; -LIDOCAINE 1% MDV 20ML VIAL As Ordered ONE; -MIDAZOLAM INJ 2MG/2ML VIAL As Ordered ONE; +RAMI10CA64; +RAMI10CA64 PO; -RAMI1CAP26; -RAMI1CAP26 PO; -ceFAZolin 2 GM/D5W 50 ML IV BAG As Ordered ONE; -fentaNYL 100 MCG/2 ML INJECTION As Ordered ONE
[2024-03-19 17:30] LABS: INR 1.06; PROTHROMBIN TIME 13.5 SECONDS (12.5-14.5)
[2024-03-19 17:33] LABS: URIC ACID 3.4 MG/DL (3.7-9.2)
== END ==
LOC: M LAB REF 16:09
PROVIDERS: ATTEND Internal Medicine
DX: M10.9 Gout, unspecified (principal); N18.4 Chronic kidney disease, stage 4 (severe); Z01.818 Encounter for other preprocedural examination

== ENCOUNTER → 2024-03-20 | Outpatient (CLI) | payer MEDICARE ==
[~2024-03-20] MED LIST changes: +ISOVUE-300 61% 100ML VIAL As Ordered ONE; +LIDOCAINE 1% MDV 20ML VIAL As Ordered ONE; +LIDOCAINE 1% SDV 30ML VIAL As Ordered ONE
[2024-03-20 13:18] VITALS: TEMP 98
[2024-03-20] MEDS: CIPROFLOXACIN 500MG TABLET PO ONE (13:56)
[2024-03-20 15:00] VITALS: BP 147/68; O2SAT 96
== END ==
LOC: M IRPRO 12:44
PROVIDERS: ATTEND Urology
DX: N13.30 Unspecified hydronephrosis (principal)
CPT/HCPCS: 50435; 75984; C1729; C1769; Q9967

== ENCOUNTER 2024-05-04 09:42 | Emergency (ER) | payer MEDICARE, BC ==
[~2024-05-04] VITALS: Ht 177.8 cm; Wt 104.5 kg
[~2024-05-04 09:42] MED LIST changes: -ISOVUE-300 61% 100ML VIAL As Ordered ONE; -LIDOCAINE 1% MDV 20ML VIAL As Ordered ONE; -LIDOCAINE 1% SDV 30ML VIAL As Ordered ONE
[2024-05-04 09:55] VITALS: TEMP 97.4
[2024-05-04 10:34] LABS: BASO % 0.1 % (0.0-1.0); EOS # 0.3 10^3/uL (0.0-0.5); EOS % 3.9 % (0.0-3.0); HEMATOCRIT 37.8 % (42.0-52.0); HEMOGLOBIN 12.2 g/dl (13.5-17.5); LYMPH # 1.1 10^3/uL (1.5-5.0); LYMPH % 13.7 % (24.0-44.0); MEAN CORPUSCULAR HEMOGLOBIN 32.4 pg (27.0-33.0); MEAN CORPUSCULAR HGB CONC 32.3 g/dl (32.0-36.5); MEAN CORPUSCULAR VOLUME 100.3 fl (80.0-96.0); MONO # 0.7 10^3/uL (0.0-0.8); MONO % 8.4 % (2.0-8.0); NEUTROPHILS % 73.3 % (36.0-66.0); PLATELET COUNT, AUTOMATED 130 10^3/uL (150-450); RED BLOOD COUNT 3.77 10^6/uL (4.30-6.10); WHITE BLOOD COUNT 8.2 10^3/uL (4.0-10.0)
[2024-05-04 10:42] LABS: CALCIUM LEVEL 8.7 MG/DL (8.3-10.6); CREATININE FOR GFR 2.72 MG/DL (0.70-1.30); GLOMERULAR FILTRATION RATE 23.8 (>35); POTASSIUM SERUM 4.3 MMOL/L (3.5-5.1)
[2024-05-04 10:45] LABS: INR 1.01; PARTIAL THROMBOPLASTIN TIME 25.1 SECONDS (24.8-34.2)
[2024-05-04] MEDS ORDERED: ATOR1TAB21 (10:53)
[2024-05-04] MEDS ORDERED: SPIR50TA4 (10:53)
[2024-05-04] MEDS ORDERED: FURO20TA2 (10:53)
[2024-05-04] MEDS: LIDOCAINE W/EPINEPHRINE 1% 20ML VIAL SC ONE (12:08)
[2024-05-04 12:27] VITALS: BP 134/63; O2SAT 97
[2024-05-04] MEDS ORDERED: CEPH500C PO (12:30)
[2024-05-04] MEDS: CEPHALEXIN 500 MG CAP PO ONE (12:32)
== END 2024-05-04 12:51 | disposition home or self-care (01) ==
LOC: M ED 09:42 → EDBD 09:42 → M ED 12:51
DX: T83.022A Displacement of nephrostomy catheter, initial encounter (principal); R31.9 Hematuria, unspecified; E66.9 Obesity, unspecified; N18.30 Chronic kidney disease, stage 3 unspecified; C61 Malignant neoplasm of prostate; I10 Essential (primary) hypertension; Z87.442 Personal history of urinary calculi; Z86.79 Personal history of other diseases of the circulatory system; Z88.5 Allergy status to narcotic agent; Z79.82 Long term (current) use of aspirin; Z79.02 Long term (current) use of antithrombotics/antiplatelets; Z79.899 Other long term (current) drug therapy; Z79.2 Long term (current) use of antibiotics

== ENCOUNTER → 2024-06-26 | Outpatient (CLI) | payer MEDICARE, BC ==
[~2024-06-26] MED LIST changes: +ATOR1TAB21; +CEPH500C PO; +FURO20TA2; +SPIR50TA4
== END ==
LOC: M WHC 06:37
PROVIDERS: ATTEND Nurse Practitioner Family
DX: N17.9 Acute kidney failure, unspecified (principal); N20.0 Calculus of kidney; N28.1 Cyst of kidney, acquired

== ENCOUNTER → 2024-07-04 | Outpatient (CLI) | payer MEDICARE, BC ==
[~2024-07-04] VITALS: Ht 177.8 cm; Wt 104.0 kg
[~2024-07-04] MED LIST changes: +ISOVUE-300 61% 100ML VIAL As Ordered ONE; +LIDOCAINE 1% MDV 20ML VIAL As Ordered ONE; +MIDAZOLAM INJ 2MG/2ML VIAL As Ordered ONE; +UNRESOLVED CLARIFICATION ENTRY XX SCH; +fentaNYL 100 MCG/2 ML INJECTION As Ordered ONE
[2024-07-04 12:22] VITALS: TEMP 97
[2024-07-04] MEDS: PIPERACILLIN/TAZOBACTAM SOD 4.5 GM in D5W MINI-BAG PLUS 50 ML IV ONE (12:31)
[2024-07-04] MEDS: NS 1,000 ML IV SCH (12:31)
[2024-07-04 13:45] VITALS: BP 126/59; O2SAT 97
== END ==
LOC: M IRPRO 12:08
PROVIDERS: ATTEND Urology
DX: N13.5 Crossing vessel and stricture of ureter without hydronephrosis (principal)
CPT/HCPCS: 50435; 99152; C1729; J2250; J2543; J3010; Q9967

== ENCOUNTER → 2024-08-27 | Outpatient (REF) | payer MEDICARE, BC ==
[~2024-08-27] MED LIST changes: -ISOVUE-300 61% 100ML VIAL As Ordered ONE; -LIDOCAINE 1% MDV 20ML VIAL As Ordered ONE; -MIDAZOLAM INJ 2MG/2ML VIAL As Ordered ONE; -UNRESOLVED CLARIFICATION ENTRY XX SCH; -fentaNYL 100 MCG/2 ML INJECTION As Ordered ONE
[2024-08-27 18:46] LABS: URIC ACID 6.7 MG/DL (3.7-9.2)
[2024-08-27 18:50] LABS: PTH INTACT 260.4 PG/ML (18.5-88.0)
== END ==
LOC: M LAB REF 18:09
PROVIDERS: ATTEND Internal Medicine
DX: N18.4 Chronic kidney disease, stage 4 (severe) (principal); M10.9 Gout, unspecified

== ENCOUNTER → 2024-10-01 | Outpatient (CLI) | payer MEDICARE, BC ==
[~2024-10-01] MED LIST changes: +CIPROFLOXACIN/D5W 400 MG/200 ML BAG As Ordered ONE; +ISOVUE-300 61% 100ML VIAL As Ordered ONE; +LIDOCAINE 1% MDV 20ML VIAL As Ordered ONE; +MIDAZOLAM INJ 2MG/2ML VIAL As Ordered ONE; +fentaNYL 100 MCG/2 ML INJECTION As Ordered ONE
[2024-10-01 12:24] VITALS: TEMP 98.7
[2024-10-01] MEDS: CIPROFLOXACIN 400 MG in IV 1 EA IV ONE (12:31)
[2024-10-01 13:30] VITALS: BP 150/71; O2SAT 98
== END ==
LOC: M IRPRO 12:09
PROVIDERS: ATTEND Urology
DX: N13.30 Unspecified hydronephrosis (principal)
CPT/HCPCS: 50435; 99152; C1729; J0744; J2250; J3010; Q9967

== ENCOUNTER → 2024-12-24 | Outpatient (REF) | payer MEDICARE, BC ==
[~2024-12-24] MED LIST changes: -CIPROFLOXACIN/D5W 400 MG/200 ML BAG As Ordered ONE; -ISOVUE-300 61% 100ML VIAL As Ordered ONE; -LIDOCAINE 1% MDV 20ML VIAL As Ordered ONE; -MIDAZOLAM INJ 2MG/2ML VIAL As Ordered ONE; -POTA10808; -POTA10808 PO; +POTA10809; +POTA10809 PO; -fentaNYL 100 MCG/2 ML INJECTION As Ordered ONE
== END ==
LOC: M LABDRWAD 12:47
PROVIDERS: ATTEND Urology
DX: C61 Malignant neoplasm of prostate (principal)

== ENCOUNTER → 2024-12-30 | Outpatient (CLI) | payer MEDICARE, BC ==
[~2024-12-30] VITALS: Ht 177.8 cm; Wt 105.0 kg
[~2024-12-30] MED LIST changes: +CIPROFLOXACIN/D5W 400 MG/200 ML BAG As Ordered ONE; +ISOVUE-300 61% 100ML VIAL As Ordered ONE; +LIDOCAINE 1% MDV 20ML VIAL As Ordered ONE; +MIDAZOLAM INJ 2MG/2ML VIAL As Ordered ONE; +NALOXONE INJ 0.4MG/1ML VIAL IV PRN; +fentaNYL 100 MCG/2 ML INJECTION As Ordered ONE
[2024-12-30 12:47] VITALS: TEMP 97
[2024-12-30] MEDS: NS (Normal Saline) 0.9% 1,000 ML IV SCH (12:55)
[2024-12-30] MEDS: CIPROFLOXACIN 400 MG in IV 1 EA IV ONE (13:21)
[2024-12-30] MEDS: MIDAZOLAM INJ 2MG/2ML VIAL IV PRN (13:51)
[2024-12-30] MEDS: fentaNYL 100 MCG/2 ML INJECTION IV PRN (13:51)
[2024-12-30] MEDS: LIDOCAINE 1% MDV 20ML VIAL SC ONE (13:57)
[2024-12-30] MEDS: ISOVUE-300 61% 100ML VIAL IV ONE (13:57)
[2024-12-30 14:42] VITALS: BP 116/66; O2SAT 96
== END ==
LOC: M IRPRO 12:32
PROVIDERS: ATTEND Urology
DX: N13.5 Crossing vessel and stricture of ureter without hydronephrosis (principal)
CPT/HCPCS: 50435; 99152; C1729; J0744; J2250; J3010; Q9967

== ENCOUNTER → 2025-07-22 | Outpatient (CLI) | payer MEDICARE, BC ==
[~2025-07-22] MED LIST changes: +ALLO10TA PO; +AMOX500T2 PO; -ASPI-655 PO; +ASPI-737 PO; +CALC1CAP31 PO; -CIPROFLOXACIN/D5W 400 MG/200 ML BAG As Ordered ONE; +DOCU100C16 PO; +ELIQ2.5T PO; -FLOM0.4C39 PO; +FOSF3PAC2 PO; -FURO20TA2; +FURO20TA2 PO; -ISOVUE-300 61% 100ML VIAL As Ordered ONE; -LIDOCAINE 1% MDV 20ML VIAL As Ordered ONE; +MAGN400T35 PO; -MIDAZOLAM INJ 2MG/2ML VIAL As Ordered ONE; -NALOXONE INJ 0.4MG/1ML VIAL IV PRN; -SPIR50TA4; +SPIR50TA4 PO; +TAMS-18 PO; -fentaNYL 100 MCG/2 ML INJECTION As Ordered ONE
[2025-07-22 12:56] VITALS: TEMP 97.2
[2025-07-22] MEDS: NS (Normal Saline) 0.9% 1,000 ML IV SCH (13:24)
[2025-07-22] MEDS: CIPROFLOXACIN 400 MG in IV 1 EA IV ONE (13:25)
[2025-07-22] MEDS: MIDAZOLAM INJ 2 MG/2 ML VIAL IV PRN (13:47)
[2025-07-22] MEDS: LIDOCAINE 1% MDV 20 ML VIAL SC SCH (13:54)
[2025-07-22] MEDS: ISOVUE-300 61% 100 ML VIAL IV SCH (13:55)
[2025-07-22] MEDS: SODIUM CHLORIDE 0.9% 1000 ML XX SCH (13:55)
[2025-07-22 14:44] VITALS: BP 140/65; O2SAT 96
== END ==
LOC: M IRPRO 12:49
PROVIDERS: ATTEND Radiology Diagnostic Radiology
DX: N13.9 Obstructive and reflux uropathy, unspecified (principal)
CPT/HCPCS: 50435; 99152; C1729; C1769; J0744; J2250; J3010; Q9967

== ENCOUNTER 2025-09-26 09:14 | Emergency (ER) | payer MEDICARE, BC ==
[~2025-09-26] VITALS: Ht 177.8 cm; Wt 98.3 kg
[2025-09-26 10:07] LABS: BASO # 0.0 10^3/uL (0.0-0.2); BASO % 0.1 % (0.0-1.0); EOS # 0.1 10^3/uL (0.0-0.5); EOS % 1.2 % (0.0-3.0); LYMPH # 1.0 10^3/uL (1.5-5.0); LYMPH % 8.5 % (24.0-44.0); MONO # 0.6 10^3/uL (0.0-0.8); MONO % 5.1 % (2.0-8.0); NEUTROPHILS # 10.3 10^3/uL (1.5-8.5); NEUTROPHILS % 84.8 % (36.0-66.0); PLATELET COUNT, AUTOMATED 187 10^3/uL (150-450)
[2025-09-26 10:14] LABS: KETONE, URINE AUTO RFX NEGATIVE (NEGATIVE); NITRITE, URINE AUTO RFX NEGATIVE (NEGATIVE); RBC, URINE AUTO RFX TNTC /HPF (0-3); SQUAM EPITHELIAL CELL UR AURFX 4 /HPF (0-6)
[2025-09-26 10:15] LABS: LEUKOCYTE ESTERASE UR AUTO RFX 2+ (NEGATIVE); WBC, URINE AUTO RFX TNTC /HPF (0-3)
[2025-09-26 10:38] LABS: ALT/SGPT 18.0 U/L (7.0-40); AST/SGOT 20.0 U/L (<34); CALCIUM LEVEL 8.3 MG/DL (8.3-10.6); CARBON DIOXIDE LEVEL 21.0 MMOL/L (20-31); CHLORIDE LEVEL 108.0 MMOL/L (98-107); CREATININE FOR GFR 3.45 MG/DL (0.70-1.30); GLOMERULAR FILTRATION RATE 16.5 (>35); POTASSIUM SERUM 5.2 MMOL/L (3.5-5.1); SODIUM LEVEL 141.0 MMOL/L (136-145)
[2025-09-26] MEDS ORDERED: ASPI81CH16 PO (11:14)
[2025-09-26] MEDS ORDERED: MAGN400C2 PO (11:14)
[2025-09-26] MEDS ORDERED: HOME MED LIST COMPLETE! XX SCH (11:20)
[2025-09-26] MEDS: NS (Normal Saline) 0.9% 1,000 ML IV SCH (13:24)
[2025-09-26] MEDS: PATIROMER SORBITEX CALCIUM 8.4GM POWDER PACKET PO ONE (13:24)
[2025-09-26] MEDS: LIDOCAINE 1% MDV 20 ML VIAL SC SCH (14:43)
[2025-09-26] MEDS: ISOVUE-300 61% 100 ML VIAL IV SCH (14:44)
[2025-09-26] MEDS: CEPHALEXIN 500 MG CAP PO ONE (14:44)
[2025-09-26] MEDS: SODIUM CHLORIDE 0.9% 1000 ML XX SCH (14:45)
[2025-09-26 16:15] VITALS: BP 123/88; TEMP 99.5; O2SAT 96
== END 2025-09-26 16:27 | disposition home or self-care (01) ==
LOC: M ED 09:14
DX: T83.022A Displacement of nephrostomy catheter, initial encounter (principal); E87.5 Hyperkalemia; I44.0 Atrioventricular block, first degree; I49.1 Atrial premature depolarization; I25.84 Coronary atherosclerosis due to calcified coronary lesion; N13.4 Hydroureter; N28.1 Cyst of kidney, acquired; K57.30 Diverticulosis of large intestine without perforation or abscess without bleeding; N40.0 Benign prostatic hyperplasia without lower urinary tract symptoms; I10 Essential (primary) hypertension; M54.50 Low back pain, unspecified; E66.9 Obesity, unspecified; C61 Malignant neoplasm of prostate; Z88.5 Allergy status to narcotic agent; Z79.01 Long term (current) use of anticoagulants; Z79.899 Other long term (current) drug therapy; Z79.82 Long term (current) use of aspirin; Z79.02 Long term (current) use of antithrombotics/antiplatelets
CPT/HCPCS: 50435; 74176; 80048; 80076; 81001; 83690; 85025; 86850; 86900; 86901; 87088; 87186; 93005; 93041; 94760; 96360; 96361; 99285; C1729; C1769; Q9967